=== PATIENT | male | born 1980 | race Caucasian/White ===

== ENCOUNTER 2022-06-09 13:42 | Inpatient (IN) | payer MEDICARE, MEDICAID, SELFPAY ==
--- NOTE | 2022-06-09 13:46 | ED.GENADULT ---
HPI - General Adult General Chief complaint: Psychiatric Symptoms <BILLY Garcia - Last Filed: 06/09/22 16:57> Stated complaint: GENERAL WEAKNESS <BILLY Garcia - Last Filed: 06/09/22 16:57> Time Seen by Provider: 06/09/22 13:45 <BILLY Garcia - Last Filed: 06/09/22 16:57> Source: patient and EMS <BILLY Garcia - Last Filed: 06/09/22 16:57> Mode of arrival: EMS <BILLY Garcia - Last Filed: 06/09/22 16:57> Limitations: no limitations <BILLY Garcia - Last Filed: 06/09/22 16:57> History of Present Illness HPI narrative: Patient is a 42 year old assigned male at with a history of depression presenting to the emergency department today with vague suicidal ideation. Patient states that his counselor recommended he come in because he made vague comments about being suicidal. Patient states that he does not have a plan at this time. Patient denies any dizziness, lightheadedness, abdominal pain, nausea, vomiting, fever, chills, blurry vision, double vision, loss of vision, chest pain, difficulty breathing, shortness of breath, back pain, night sweats, pain with urination, increased urinary frequency, increased urinary urgency, blood in his urine or stool, syncope or a near syncopal episode, recent trauma or falls, bowel incontinence, bladder incontinence, bowel retention, bladder retention, or any other complaints at this time. <BILLY Gacria - Last Filed: 06/09/22 16:57> Onset (ago): day(s) <BILLY Garcia - Last Filed: 06/09/22 16:57> Severity: mild <BILLY Garcia - Last Filed: 06/09/22 16:57> Relieving factors: none <BILLY Garcia - Last Filed: 06/09/22 16:57> Exacerbating factors: none <BILLY Garcia Last Filed: 06/09/22 16:57> Associated symptoms: denies other symptoms <BILLY Garcia Last Filed: 06/09/22 16:57> Treatments prior to arrival: none <BILLY Garcia Last Filed: 06/09/22 16:57> Related Data Home medications: Home Medications Medication Instructions Recorded Confirmed aripiprazole 5 mg tablet 1 tab PO BEDTIME 06/09/22 06/09/22 bupropion HCl 150 mg 24 hr tablet, 1 tab PO QAM 06/09/22 06/09/22 extended release methadone 10 mg/mL oral syringe 121 mg PO DAILY 06/09/22 06/09/22 (FOR ORAL USE ONLY) <BILLY Garcia Last Filed: 06/09/22 16:57> Allergies/adverse reactions: Allergies Allergy/AdvReac Type Severity Reaction Status Date / Time No Known Allergies Allergy Verified 06/09/22 13:54 <BILLY Garcia Last Filed: 06/09/22 16:57> Review of Systems Constitutional: Constitutional: Reports no additional constitutional complaints, Denies chills, Denies fever(s) and Denies night sweats <BILLY Garcia Last Filed: 06/09/22 16:57> Eyes: Eyes: Reports no additional eye complaints, Denies blurry vision, Denies change in vision, Denies diplopia, Denies eye discharge, Denies loss of vision and Denies eye pain <BILLY Garcia Last Filed: 06/09/22 16:57> ENT: Denies dizziness <BILLY Garcia Last Filed: 06/09/22 16:57> Cardiovascular: Cardiovascular: Reports no additional cardiovascular complaints, Denies chest pain, Denies lightheadedness, Denies Loss of Consciousness and Denies dyspnea <BILLY Garcia Last Filed: 06/09/22 16:57> Respiratory: Respiratory: Reports no additional respiratory complaints and Denies dyspnea <BILLY Garcia Last Filed: 06/09/22 16:57> Gastrointestinal: Gastrointestinal: Reports no additional gastrointestinal complaints, Denies abdominal pain, Denies melena, Denies hematochezia, Denies change in bowel habits and Denies change in stool character <BILLY Garcia Last Filed: 06/09/22 16:57> Genitourinary: Genitourinary: Reports no additional male genitourinary complaints, Denies hematuria, Denies oliguria, Denies difficulty urinating, Denies dysuria, Denies urinary frequency, Denies urinary hesitancy, Denies urinary incontinence and Denies urinary urgency <BILLY Garcia - Last Filed: 06/09/22 16:57> Musculoskeletal: Musculoskeletal: Reports no additional musculoskeletal complaints, Denies numbness and Denies tingling <BILLY Garcia - Last Filed: 06/09/22 16:57> Neurologic: Denies dizziness, Denies loss of vision, Denies numbness and Denies tingling <BILLY Garcia - Last Filed: 06/09/22 16:57> Psychiatric: Psychiatric: Reports no additional psychiatric complaints, Reports depression and Reports suicidal ideation <BILLY Garcia - Last Filed: 06/09/22 16:57> Endocrine: Endocrine: Reports no additional endocrine complaints <BILLY Garcia - Last Filed: 06/09/22 16:57> Hematologic/Lymphatic: Hematologic/Lymphatic: Reports no additional hematologic/lymphatic complaints <BILLY Garcia - Last Filed: 06/09/22 16:57> Allergic/Immunologic: Allergic/Immunologic: Reports no additional allergic/immunologic complaints <BILLY Garcia - Last Filed: 06/09/22 16:57> PMF Past Medical History Attestation statement: The following information was validated with the patient. <BILLY Garcia - Last Filed: 06/09/22 16:57> Source: old records reviewed <BILLY Garcia - Last Filed: 06/09/22 16:57> Social History Social History: Social History Alcohol intake: unknown Smoked in Last 30 Days: No Use of substances other than those prescribed or required for medical reasons: Unknown Advance Directives: No Advance Directives Information Provided: No Guardian: No <BILLY Garcia - Last Filed: 06/09/22 16:57> Physical Exam ED Vital Signs: Vital Signs - 24 hr 06/09/22 13:49 06/09/22 15:56 06/10/22 05:11 Temperature 98.2 F 98.5 F Pulse Rate 64 63 Respiratory Rate 16 16 17 Blood Pressure 125/81 122/64 Pulse Oximetry 94 Oxygen Delivery Method Room Air BMI result Body Mass Index 24.0 <BILLY Garcia - Last Filed: 06/09/22 16:57> Vital Signs - 24 hr 06/09/22 13:49 06/09/22 15:56 06/10/22 05:11 Temperature 98.2 F 98.5 F Pulse Rate 64 63 Respiratory Rate 16 16 17 Blood Pressure 125/81 122/64 Pulse Oximetry 94 Oxygen Delivery Method Room Air BMI result Body Mass Index 24.0 <Samuel Cheema MD - Last Filed: 06/10/22 07:02> Const General: cooperative, no acute distress, alert and awake <BILLY Garcia - Last Filed: 06/09/22 16:57> Nutritional Appearance: well nourished <BILLY Garcia - Last Filed: 06/09/22 16:57> Orientation/consciousness: patient oriented x3 <BILLY Garcia - Last Filed: 06/09/22 16:57> Limitations: no limitations <BILLY Garcia - Last Filed: 06/09/22 16:57> HENMT Head: Yes normal to inspection and Yes atraumatic <BILLY Garcia - Last Filed: 06/09/22 16:57> Ears: hearing grossly normal bilaterally and external ears normal <BILLY Garcia - Last Filed: 06/09/22 16:57> General nose exam: Normal external nose present, no nasal discharge noted and no epistaxis <BILLY Garcia - Last Filed: 06/09/22 16:57> Face and sinus: Yes normal facial exam, No abrasion and No laceration <BILLY Garcia - Last Filed: 06/09/22 16:57> Mouth: Normal oral and palatal mucosa present, no drooling and no muffled voice <BILLY Garcia - Last Filed: 06/09/22 16:57> Eyes General: appearance normal, both eyes and all related structures <BILLY Garcia - Last Filed: 06/09/22 16:57> Periorbital: periorbital findings normal <BILLY Garcia - Last Filed: 06/09/22 16:57> Eyelids: Yes eyelids normal <BILLY Garcia - Last Filed: 06/09/22 16:57> Conjunctivae: conjunctivae normal <Tara Jeffers PA - Last Filed: 06/09/22 16:57> Pupils: Equal, round and reactive pupils present <Tara Jeffers PA - Last Filed: 06/09/22 16:57> EOM: EOMs intact bilaterally <Tara Jeffers PA - Last Filed: 06/09/22 16:57> Neck Neck: Yes normal visual inspection, Yes full ROM and Yes no lymphadenopathy <Tara Jeffers PA - Last Filed: 06/09/22 16:57> Chest Chest palpation & inspection: normal inspection of the chest <Tara Jeffers PA - Last Filed: 06/09/22 16:57> Resp Effort & Inspection: normal respiratory effort and able to speak in complete sentences <Tara Jeffers PA - Last Filed: 06/09/22 16:57> Auscultation: clear to auscultation bilaterally <Tara Jeffers [place] - Last Filed: 06/09/22 16:57> Cardio Rate: regular rate <Tara Jeffers PA - Last Filed: 06/09/22 16:57> Rhythm: regular rhythm <Tara Jeffers [place] - Last Filed: 06/09/22 16:57> GI Inspection: Yes normal to inspection <Tara Jeffers PA - Last Filed: 06/09/22 16:57> Neuro General: patient oriented x3 and moves all extremities <Tara Jeffers [place] - Last Filed: 06/09/22 16:57> Cranial nerves: Yes Equal, round and reactive pupils present <Tara Jeffers PA - Last Filed: 06/09/22 16:57> Cognition (Neuro): normal cognition <Tara Jeffers PA - Last Filed: 06/09/22 16:57> Motor exam (neuro): 5/5 motor strength present throughout <Tara Jeffers PA - Last Filed: 06/09/22 16:57> Sensory Exam: Normal double simultaneous stimulation for sensation <Tara Jeffers PA - Last Filed: 06/09/22 16:57> Coordination: [id number] test normal <Tara Jeffers PA - Last Filed: 06/09/22 16:57> Extrem General: Yes normal to inspection, Yes full ROM and Yes capillary refill normal <BILLY Garcia - Last Filed: 06/09/22 16:57> Psych Appearance: grossly normal <BILLY Garcia - Last Filed: 06/09/22 16:57> Mental Status: mental status grossly normal <BILLY Garcia - Last Filed: 06/09/22 16:57> Affect: Indifferent affect present <BILLY Garcia - Last Filed: 06/09/22 16:57> Attitude: Avoids eye contact (attititude/behavior) <BILLY Garcia - Last Filed: 06/09/22 16:57> Thought process: Normal thought process present <BILLY Garcia - Last Filed: 06/09/22 16:57> Thought content: Suicidality present <BILLY Garcia - Last Filed: 06/09/22 16:57> Insight: Limited insight present (Psych) <BILLY Garcia - Last Filed: 06/09/22 16:57> Judgement: Limited judgement present (Psych) <BILLY Garcia - Last Filed: 06/09/22 16:57> Course Reevaluation(s) Reevaluation #1: No events reported by the nurse overnight, vital signs stable, bed search is underway patient is willing to be admitted voluntary, continue with physician observation status. <Samuel Cheema MD - Last Filed: 06/10/22 07:02> Time: 07:01 <Samuel Cheema MD - Last Filed: 06/10/22 07:02> Medications Administered Generic Name Dose Route Start Last Admin Trade Name Freq PRN Reason Stop Dose Admin Aripiprazole 5 mg 06/09/22 21:00 06/09/22 20:13 Aripiprazole 5 Mg Tablet PO 5 mg BEDTIME XIAO Administration Bupropion HCl 150 mg 06/09/22 14:45 06/09/22 14:49 Bupropion Hcl Xl 150 Mg Tab.Er.24h PO Not Given DAILY XIAO <BILLY Garcia - Last Filed: 06/09/22 16:57> Medications Administered Generic Name Dose Route Start Last Admin Trade Name Freq PRN Reason Stop Dose Admin Aripiprazole 5 mg 06/09/22 21:00 06/09/22 20:13 Aripiprazole 5 Mg Tablet PO 5 mg BEDTIME XIAO Administration Bupropion HCl 150 mg 06/09/22 14:45 06/09/22 14:49 Bupropion Hcl Xl 150 Mg Tab.Er.24h PO Not Given DAILY XIAO <Samuel Cheema MD - Last Filed: 06/10/22 07:02> Medical Decision Making MDM Narrative Medical decision making narrative: Patient is a 42 year old assigned male at with a history of depression presenting to the emergency department today with vague suicidal ideation. Patient's physical exam showed an indifferent individual with vague suicidal ideation. Patient's blood work was unremarkable. I explained my physical exam findings as well as all test results to the patient. I answered all questions asked by the patient. Patient is currently awaiting [facility] evaluation. Patient is not on a section 12 and may leave if he so chooses. <BILLY Garcia - Last Filed: 06/09/22 16:57> Medical Records Medical records reviewed: Yes I reviewed the patient's medical records. <BILLY Garcia - Last Filed: 06/09/22 16:57> Lab Data Lab results reviewed: Yes I reviewed the patient's lab results. <BILLY Garcia - Last Filed: 06/09/22 16:57> Result diagrams: : 06/09/22 14:37 06/09/22 14:37 <BILLY Garcia - Last Filed: 06/09/22 16:57> Labs: Lab Results 06/09/22 06/09/22 06/09/22 Range/Units 14:29 14:29 14:37 WBC 7.7 (4.8-10.8) X10*3/uL RBC 4.68 (4.60-5.80) X10*6/uL Hgb 14.2 (14.0-18.0) g/dl Hct 41.7 L (42.0-52.0) % MCV 89.1 (80.0-98.0) fL MCH 30.3 (27.0-33.0) pg MCHC 34.1 (31.0-36.0) g/dl RDW 12.5 (11.0-16.0) % Plt Count 243 (160-400) X10*3/uL MPV 9.4 (9.4-12.4) fL Immature Gran % (Auto) 0.4 (0.0-0.4) % Neut % (Auto) 51.4 (45-73) % Lymph % (Auto) 35.3 (20-40) % [place] % (Auto) 6.9 (2-11) % Eos % (Auto) 5.5 H (0-4) % Baso % (Auto) 0.5 (0-2) % Lymph # (Auto) 2.7 (1.2-4.9) X10*3/uL [place] # (Auto) 0.5 (0.1-1.2) X10*3/uL Eos # (Auto) 0.4 (0.0-0.4) X10*3/uL Baso # (Auto) 0.0 (0.0-0.2) X10*3/uL Abs Immat Gran (auto) 0.03 (0.00-0.03) X10*3/uL Absolute Neuts (auto) 4.0 (2.0-8.3) x10*3/uL Absolute Nucleated RBC 0.000 (0.0-0.012) X10*3/uL Nucleated RBC % (auto) 0.0 (0.0-0.2) /100WBC Sodium (135-145) mmol/L Potassium (3.3-5.1) mmol/L Chloride (96-108) mmol/L Carbon Dioxide (22-29) mmol/L Anion Gap (12-20) BUN (9-16) mg/dL Creatinine (0.5-1.4) mg/dL Estim Creat Clear Calc Estimated GFR Random Glucose (60-115) mg/dL Calcium (8.4-10.2) mg/dL Total Bilirubin (0.0-1.0) mg/dL AST (5-37) U/L ALT (0-40) U/L Alkaline Phosphatase (39-117) U/L Total Protein (6.5-8.0) g/dL Albumin (3.5-5.0) g/dL Salicylates (15-30) mg/dL Urine Opiates Screen Not Detected (Not Detect) Urine Fentanyl Screen POSITIVE H (Not Detect) Acetaminophen (<30) mcg/mL Ur Barbiturates Screen Not Detected (Not Detect) Ur Phencyclidine Scrn Not Detected (Not Detect) Ur Amphetamines Screen Not Detected (Not Detect) U Benzodiazepines Scrn Not Detected (Not Detect) Urine Cocaine Screen Not Detected (Not Detect) U Marijuana (THC) Screen POSITIVE H (Not Detect) Ethyl Alcohol mg/dL COVID-19 (TYRONE) Negative (Negative) COVID-19 Clin Com See Note 06/09/22 Range/Units 14:37 WBC (4.8-10.8) X10*3/uL RBC (4.60-5.80) X10*6/uL Hgb (14.0-18.0) g/dl Hct (42.0-52.0) % MCV (80.0-98.0) fL MCH (27.0-33.0) pg MCHC (31.0-36.0) g/dl RDW (11.0-16.0) % Plt Count (160-400) X10*3/uL MPV (9.4-12.4) fL Immature Gran % (Auto) (0.0-0.4) % Neut % (Auto) (45-73) % Lymph % (Auto) (20-40) % [place] % (Auto) (2-11) % Eos % (Auto) (0-4) % Baso % (Auto) (0-2) % Lymph # (Auto) (1.2-4.9) X10*3/uL [place] # (Auto) (0.1-1.2) X10*3/uL Eos # (Auto) (0.0-0.4) X10*3/uL Baso # (Auto) (0.0-0.2) X10*3/uL Abs Immat Gran (auto) (0.00-0.03) X10*3/uL Absolute Neuts (auto) (2.0-8.3) x10*3/uL Absolute Nucleated RBC (0.0-0.012) X10*3/uL Nucleated RBC % (auto) (0.0-0.2) /100WBC Sodium 142 (135-145) mmol/L Potassium 4.3 (3.3-5.1) mmol/L Chloride 102 (96-108) mmol/L Carbon Dioxide 31 H (22-29) mmol/L Anion Gap 13 (12-20) BUN 10 (9-16) mg/dL Creatinine 0.84 (0.5-1.4) mg/dL Estim Creat Clear Calc 123.2 Estimated GFR > 60 Random Glucose 81 (60-115) mg/dL Calcium 10.1 (8.4-10.2) mg/dL Total Bilirubin 0.2 (0.0-1.0) mg/dL AST 29 (5-37) U/L ALT 34 (0-40) U/L Alkaline Phosphatase 74 (39-117) U/L Total Protein 7.0 (6.5-8.0) g/dL Albumin 4.4 (3.5-5.0) g/dL Salicylates < 5.0 L (15-30) mg/dL Urine Opiates Screen (Not Detect) Urine Fentanyl Screen (Not Detect) Acetaminophen < 1 (<30) mcg/mL Ur Barbiturates Screen (Not Detect) Ur Phencyclidine Scrn (Not Detect) Ur Amphetamines Screen (Not Detect) U Benzodiazepines Scrn (Not Detect) Urine Cocaine Screen (Not Detect) U Marijuana (THC) Screen (Not Detect) Ethyl Alcohol < 10 mg/dL COVID-19 (TYRONE) (Negative) COVID-19 Clin Com <BILLY Garcia - Last Filed: 06/09/22 16:57> Lab Results 06/09/22 06/09/22 06/09/22 Range/Units 14:29 14:29 14:37 WBC 7.7 (4.8-10.8) X10*3/uL RBC 4.68 (4.60-5.80) X10*6/uL Hgb 14.2 (14.0-18.0) g/dl Hct 41.7 L (42.0-52.0) % MCV 89.1 (80.0-98.0) fL MCH 30.3 (27.0-33.0) pg MCHC 34.1 (31.0-36.0) g/dl RDW 12.5 (11.0-16.0) % Plt Count 243 (160-400) X10*3/uL MPV 9.4 (9.4-12.4) fL Immature Gran % (Auto) 0.4 (0.0-0.4) % Neut % (Auto) 51.4 (45-73) % Lymph % (Auto) 35.3 (20-40) % [place] % (Auto) 6.9 (2-11) % Eos % (Auto) 5.5 H (0-4) % Baso % (Auto) 0.5 (0-2) % Lymph # (Auto) 2.7 (1.2-4.9) X10*3/uL [place] # (Auto) 0.5 (0.1-1.2) X10*3/uL Eos # (Auto) 0.4 (0.0-0.4) X10*3/uL Baso # (Auto) 0.0 (0.0-0.2) X10*3/uL Abs Immat Gran (auto) 0.03 (0.00-0.03) X10*3/uL Absolute Neuts (auto) 4.0 (2.0-8.3) x10*3/uL Absolute Nucleated RBC 0.000 (0.0-0.012) X10*3/uL Nucleated RBC % (auto) 0.0 (0.0-0.2) /100WBC Sodium (135-145) mmol/L Potassium (3.3-5.1) mmol/L Chloride (96-108) mmol/L Carbon Dioxide (22-29) mmol/L Anion Gap (12-20) BUN (9-16) mg/dL Creatinine (0.5-1.4) mg/dL Estim Creat Clear Calc Estimated GFR Random Glucose (60-115) mg/dL Calcium (8.4-10.2) mg/dL Total Bilirubin (0.0-1.0) mg/dL AST (5-37) U/L ALT (0-40) U/L Alkaline Phosphatase (39-117) U/L Total Protein (6.5-8.0) g/dL Albumin (3.5-5.0) g/dL Salicylates (15-30) mg/dL Urine Opiates Screen Not Detected (Not Detect) Urine Fentanyl Screen POSITIVE H (Not Detect) Acetaminophen (<30) mcg/mL Ur Barbiturates Screen Not Detected (Not Detect) Ur Phencyclidine Scrn Not Detected (Not Detect) Ur Amphetamines Screen Not Detected (Not Detect) U Benzodiazepines Scrn Not Detected (Not Detect) Urine Cocaine Screen Not Detected (Not Detect) U Marijuana (THC) Screen POSITIVE H (Not Detect) Ethyl Alcohol mg/dL COVID-19 (TYRONE) Negative (Negative) COVID-19 Clin Com See Note 06/09/22 Range/Units 14:37 WBC (4.8-10.8) X10*3/uL RBC (4.60-5.80) X10*6/uL Hgb (14.0-18.0) g/dl Hct (42.0-52.0) % MCV (80.0-98.0) fL MCH (27.0-33.0) pg MCHC (31.0-36.0) g/dl RDW (11.0-16.0) % Plt Count (160-400) X10*3/uL MPV (9.4-12.4) fL Immature Gran % (Auto) (0.0-0.4) % Neut % (Auto) (45-73) % Lymph % (Auto) (20-40) % [place] % (Auto) (2-11) % Eos % (Auto) (0-4) % Baso % (Auto) (0-2) % Lymph # (Auto) (1.2-4.9) X10*3/uL [place] # (Auto) (0.1-1.2) X10*3/uL Eos # (Auto) (0.0-0.4) X10*3/uL Baso # (Auto) (0.0-0.2) X10*3/uL Abs Immat Gran (auto) (0.00-0.03) X10*3/uL Absolute Neuts (auto) (2.0-8.3) x10*3/uL Absolute Nucleated RBC (0.0-0.012) X10*3/uL Nucleated RBC % (auto) (0.0-0.2) /100WBC Sodium 142 (135-145) mmol/L Potassium 4.3 (3.3-5.1) mmol/L Chloride 102 (96-108) mmol/L Carbon Dioxide 31 H (22-29) mmol/L Anion Gap 13 (12-20) BUN 10 (9-16) mg/dL Creatinine 0.84 (0.5-1.4) mg/dL Estim Creat Clear Calc 123.2 Estimated GFR > 60 Random Glucose 81 (60-115) mg/dL Calcium 10.1 (8.4-10.2) mg/dL Total Bilirubin 0.2 (0.0-1.0) mg/dL AST 29 (5-37) U/L ALT 34 (0-40) U/L Alkaline Phosphatase 74 (39-117) U/L Total Protein 7.0 (6.5-8.0) g/dL Albumin 4.4 (3.5-5.0) g/dL Salicylates < 5.0 L (15-30) mg/dL Urine Opiates Screen (Not Detect) Urine Fentanyl Screen (Not Detect) Acetaminophen < 1 (<30) mcg/mL Ur Barbiturates Screen (Not Detect) Ur Phencyclidine Scrn (Not Detect) Ur Amphetamines Screen (Not Detect) U Benzodiazepines Scrn (Not Detect) Urine Cocaine Screen (Not Detect) U Marijuana (THC) Screen (Not Detect) Ethyl Alcohol < 10 mg/dL COVID-19 ([facility]YRONE) (Negative) COVID-19 Clin Com <Samuel Cheema MD - Last Filed: 06/10/22 07:02> Discharge Plan Discharge Clinical Impression: Depression <BILLY Garcia - Last Filed: 06/09/22 16:57> Patient Disposition: Still a Patient <BILLY Garcia - Last Filed: 06/09/22 16:57> Instructions: Depression (ED) <BILLY Garcia - Last Filed: 06/09/22 16:57> Additional Instructions: Follow up with your primary care provider. Return to the emergency department immediately if your symptoms worsen or if you develop any dizziness, shortness of breath, difficulty breathing, chest pain, blurry vision, loss of vision, nausea, vomiting, abdominal pain, fever, chills, back pain, or any other complaints. <BILLY Garcia - Last Filed: 06/09/22 16:57> Prescriptions: No Action aripiprazole 5 mg tablet 1 tab PO BEDTIME bupropion HCl 150 mg tablet extended release 24 hr 1 tab PO QAM methadone 10 mg/mL Syringe 121 mg PO DAILY <BILLY Garcia - Last Filed: 06/09/22 16:57> Referrals: Josr Maurice MD [Primary Care Provider] - <BILLY Garcia - Last Filed: 06/09/22 16:57> Interventions: [place]-Suicide Risk Severity Scale Last Done: 06/09/22 14:00 <BILLY Garcia - Last Filed: 06/09/22 16:57> Print Language: French <BILLY Garcia - Last Filed: 06/09/22 16:57>
[2022-06-09 13:49] VITALS: BP 125/81; PULSE 64; RESP 16; TEMP 36.8; BMI 24.0
[2022-06-09 13:54] VITALS: BP 120/80; PULSE 74; O2SAT 96
--- NOTE | 2022-06-09 14:32 | PC.NURSE ---
Addendum entered by Ann-Marie Tate 06/09/22 16:09: Methadone dose Verified by Cassi PORRAS. Dose 121mg PO last dose 06/09/2022, at 5:53am. Original Note: Contact made to [facility] at [phone] to verify methadone. Per kindra, metal moulder's assistant at clinic, director will call back. Clinic opens at 1600.
[2022-06-09 14:43] LABS: MANUAL DIFF FLAG NO
[2022-06-09 14:46] LABS: Amphetamine Screen Urine Not Detected (Not Detect); Barbiturates, Urine Not Detected (Not Detect); Benzodiazepines Screen Urine Not Detected (Not Detect); Cannabinoid Screen Urine POSITIVE (Not Detect); Cocaine Screen Urine Not Detected (Not Detect); Fentanyl, urine POSITIVE (Not Detect); Opiate Screen Urine Not Detected (Not Detect); Phencyclidine Screen Urine Not Detected (Not Detect)
[2022-06-09 14:46] LABS: Basophils Percent Auto 0.5 % (0-2); Eosinophils Absolute Auto 0.4 X10*3/uL (0.0-0.4); Eosinophils Percent Auto 5.5 % (0-4); Hematocrit 41.7 % (42.0-52.0); Hemoglobin 14.2 g/dl (14.0-18.0); Imm Gran Abs Auto 0.03 X10*3/uL (0.00-0.03); Imm Gran Pct Auto 0.4 % (0.0-0.4); Lymphocytes Absolute Auto 2.7 X10*3/uL (1.2-4.9); Lymphocytes Percent Auto 35.3 % (20-40); Mean Corpuscular HGB Conc 34.1 g/dl (31.0-36.0); Mean Corpuscular Hemoglobin 30.3 pg (27.0-33.0); Mean Corpuscular Volume 89.1 fL (80.0-98.0); Mean Platelet Volume 9.4 fL (9.4-12.4); Monocytes Absolute Auto 0.5 X10*3/uL (0.1-1.2); Monocytes Percent Auto 6.9 % (2-11); Neutrophils Percent Auto 51.4 % (45-73); Platelet Count 243 X10*3/uL (160-400); Red Blood Count 4.68 X10*6/uL (4.60-5.80); Red Cell Distribution Width 12.5 % (11.0-16.0); White Blood Count 7.7 X10*3/uL (4.8-10.8)
[2022-06-09 14:52] LABS: COVID-19 Test Negative (Negative); IDNOW Serial# BCCEAD1C
[2022-06-09 15:08] LABS: Acetaminophen LAB < 1 mcg/mL (<30); Alanine Aminotransferase 34 U/L (0-40); Albumin Level 4.4 g/dL (3.5-5.0); Alkaline Phosphatase 74 U/L (39-117); Anion Gap 13 (12-20); Aspartate Amino Transferase 29 U/L (5-37); Bilirubin Total 0.2 mg/dL (0.0-1.0); Blood Urea Nitrogen 10 mg/dL (9-16); Calcium 10.1 mg/dL (8.4-10.2); Carbon Dioxide 31 mmol/L (22-29); Chloride 102 mmol/L (96-108); Creatinine Clr Calc Pharmacy 123.2; Estimated Glomerular Filt Rate > 60; Ethanol < 10 mg/dL; Glucose Random 81 mg/dL (60-115); Potassium 4.3 mmol/L (3.3-5.1); Salicylate < 5.0 mg/dL (15-30); Sodium 142 mmol/L (135-145)
[2022-06-09 15:56] VITALS: RESP 16
--- NOTE | 2022-06-09 16:00 | PC.NURSE ---
Per pt: okay to discuss care with brother Tremayne [phone]
--- NOTE | 2022-06-09 18:00 | PC.NURSE ---
contact made to [facility] regarding Smartsheet sent at [id number]. Contact made to [facility]. Per Beau: no clinician will be available within next 60 minutes.
--- NOTE | 2022-06-09 18:10 | HE.PHANOTE ---
RE METHADONE FORM RECEIVED FOR 121 MG FROM [facility] IN [facility]
--- NOTE | 2022-06-09 18:33 | MHC.CARE ---
[facility] unable to send a clinician, CARE team will complete assessment
--- NOTE | 2022-06-09 19:19 | PC.NURSE ---
Addendum entered by Erica Penn RN 06/10/22 06:48: report given to SANIA Yancey Original Note: report received from SANIA Jacobsen pt alert and oriented, resting comfortably no signs of acute distress notice breathing equally unlabored close monitoring maintained
[2022-06-09] MEDS: ARIPiprazole 5 MG TABLET PO (20:13)
[2022-06-10 05:11] VITALS: BP 122/64; PULSE 63; RESP 17; TEMP 36.9; O2SAT 94
--- NOTE | 2022-06-10 07:35 | PC.NURSE ---
patient appears to remain asleep at present respirations are even and unlabored patient appears in no distress
[2022-06-10] MEDS: buPROPion HCl XL 150 MG TAB.ER.24H PO (08:04)
[2022-06-10] MEDS: methADONE HCl 20 MG/2 ML ORAL.CONC 120 MG PO (08:04)
--- NOTE | 2022-06-10 09:03 | PC.NURSE ---
nursing staff called from [facility] to verify dose, (Christina) t/w stated dose we gave and loose circumstances bedsearch under which client was remaining in ED. patient at rest in rear communal area.
[2022-06-10 16:04] VITALS: BP 113/77; PULSE 82; RESP 18; TEMP 36.7; O2SAT 97
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
[2022-06-10] MEDS: Nicotine 21 MG PATCH.TD24 TRANSDERMA (18:26)
--- NOTE | 2022-06-10 19:39 | PC.NURSE ---
Verbal order obtained to start nicotine patch tonight by Rosalinda Robert NP.
[2022-06-10] MEDS: traZODone HCL 50 MG TABLET PO (21:12)
[2022-06-10] MEDS: hydrOXYzine HCL 25 MG TABLET PO (21:12)
[2022-06-11 06:00] VITALS: BP 114/76; PULSE 78; RESP 18; TEMP 36.2; O2SAT 96
[2022-06-11] MEDS: methADONE HCl 20 MG/2 ML ORAL.CONC 120 MG PO (08:20)
[2022-06-11] MEDS: Nicotine 21 MG PATCH.TD24 TRANSDERMA (08:21)
[2022-06-11] MEDS: Paliperidone ER 6 MG TAB.ER.24 PO (08:21)
[2022-06-11 09:41] LABS: Estimated Average Glucose 103 mg/dL; Hemoglobin A1c % 5.2 %
[2022-06-11 10:21] LABS: Anion Gap 14 (12-20); Carbon Dioxide 28 mmol/L (22-29); Chloride 102 mmol/L (96-108); Potassium 4.6 mmol/L (3.3-5.1); Sodium 139 mmol/L (135-145); Thyroid Stimulating Hormone 1.22 uIU/mL (0.32-4.0)
[2022-06-11 10:32] LABS: Alanine Aminotransferase 44 U/L (0-40); Albumin Level 4.3 g/dL (3.5-5.0); Alkaline Phosphatase 80 U/L (39-117); Aspartate Amino Transferase 28 U/L (5-37); Bilirubin Total 0.2 mg/dL (0.0-1.0); Blood Urea Nitrogen 17 mg/dL (9-16); Cholesterol 220 mg/dL; Creatinine Clr Calc Pharmacy 106.7; Estimated Glomerular Filt Rate > 60; Glucose Fasting 85 mg/dL (60-99); HDL Cholesterol 49 mg/dL; LDL Cholesterol Calculated 150 mg/dl; Triglycerides 108 mg/dL
--- NOTE | 2022-06-11 16:51 | P.PNPSI_ITS ---
Subjective Subjective Date of Service: 06/11/22 Reason For Visit: SI Interim History: pt calm, cooperative. amenable to interview. appears superficially well. denies SI/HI/AVH. verifies his h/o LANG and desire to get back on LANG. no complaints or requests, declines and med changes presently. per staff, thoughts of and suicide. denies SI now. some delayed responses. vague responses. mother a year ago and pt decompensated after. tox cannabis and fentanyl POS. appeared to have slept well. Mental Status Exam Mental Status Exam Narrative: A&O. In street clothes, okay hygiene, normal body habitus. Intermittent eye contact, attentive. No Tics or Tremors. No abnormal involuntary movements. Calm, cooperative, engaged. Non-pressured speech, spontaneous with regular rate and rhythm, normal volume and prosody. No prolonged speech latency or dysarthria. Mood is ?tolerable,? affect is congruent, normo-intense, non-labile. Denies SI/SIB/HI/AVH upon inquiry, although his responses to SI and AVH are not really. Thoughts are coherent, organized. No known cognitive or memory impairment. Insight/ Judgment limited but adequate. Diagnostics Vital Signs (24Hr): Vital Signs - 24 hr 06/11/22 06:00 Temperature 97.2 F Pulse Rate 78 Respiratory Rate 18 Blood Pressure 114/76 Pulse Oximetry 96 Oxygen Delivery Method Room Air BMI result Body Mass Index 24.0 Labs Results: 06/09/22 14:37 06/11/22 08:34 Labs: Laboratory Results - last 48 hr 06/11/22 06/11/22 08:34 08:34 Sodium 139 Potassium 4.6 Chloride 102 Carbon Dioxide 28 Anion Gap 14 BUN 17 H Creatinine 0.97 Estim Creat Clear Calc 106.7 Estimated GFR > 60 Fasting Glucose 85 Estimat Average Glucose 103 Hemoglobin A1c % 5.2 Calcium 10.0 Total Bilirubin 0.2 AST 28 ALT 44 H Alkaline Phosphatase 80 Total Protein 7.0 Albumin 4.3 Triglycerides 108 Cholesterol 220 LDL Cholesterol, Calc 150 HDL Cholesterol 49 TSH 1.22 Medications Medications Current Medications Acetaminophen (Acetaminophen 325 Mg Tablet) 650 mg PO Q6H PRN PRN Reason: Headache/Pain Mild Scale (1-3) Al Hydroxide/Mg Hydroxide (Magnesium Hydrox/Alum Hydrox 30 Ml Oral.Susp) 30 ml PO Q6H PRN PRN Reason: Heartburn/Nausea Hydroxyzine HCl (Hydroxyzine Hcl 25 Mg Tablet) 25 mg PO Q6H PRN PRN Reason: Anxiety Last Admin: 06/10/22 21:12 Dose: 25 mg Magnesium Hydroxide (Milk Of Magnesia 30 Ml Oral.Susp) 30 ml PO DAILY PRN PRN Reason: Constipation Methadone HCl (Methadone Hcl 20 Mg/2 Ml Oral.Conc) 120 mg PO DAILY [facility] Last Admin: 06/11/22 08:20 Dose: 120 mg Nicotine (Nicotine 21 Mg Patch.Td24) 21 mg TRANSDERMA DAILY [facility] Last Admin: 06/11/22 08:21 Dose: 21 mg Paliperidone (Paliperidone Er 6 Mg Tab.Er.24) 6 mg PO DAILY [facility] Last Admin: 06/11/22 08:21 Dose: 6 mg Trazodone HCl (Trazodone Hcl 50 Mg Tablet) 50 mg PO BEDTIME PRN PRN Reason: Insomnia Last Admin: 06/10/22 21:12 Dose: 50 mg Allergies Allergies Allergy/AdvReac Type Severity Reaction Status Date / Time No Known Allergies Allergy Verified 06/09/22 13:54 Assessment & Plan Assessment & Plan (1) Schizoaffective disorder, depressive type: Status: Acute Code(s): F25.1 - Schizoaffective disorder, depressive type (2) Opioid use disorder, moderate, dependence: Status: Acute Code(s): F11.20 - Opioid dependence, uncomplicated Plan Harsha is a 42 y.o. male who carries a dx of schizoaffective disorder, dep ressive type, and opioid use disorder. He presented to [facility] on 06/09/22 due to passive suicidal ideation. Per CARE team cyn pt?s functioning has been declining since 02/2022. He had been stable for 5 years on invega trinza, however his mother 05/2021 and then his psychiatrist retired, has been off his LANG sine 08/2021. He was started on low dose abilify in 03/2022 and bupropion XL. Pt has been using 3-5 bags of fentanyl via insufflation 3-5 times a week for over a year. Utox positive for both fentanyl and cannabis. Hx of multiple previous psych admissions, last in 2017. Onset of psychosis since age 17. 06/10: D/C abilify 5 mg, re-start invega at 6 mg. Hx of being on invega trinza 4 10 mg. D/c wellbutrin due to potential exacerbation in psychotic sx. 06/11: continue current mgmt. start invega sustenna LANG perhaps thursday if pt continue to tolerate PO medication. I spent ___25___ minutes with the patient and/or on the patient floor today, greater than?50% of which was spent counseling/coordinating care. Reason for contiued inpatient stay Substantial Risk for: harm to self, inability to function and rapid decompensation
[2022-06-12 07:00] VITALS: BMI 23.8
--- NOTE | 2022-06-12 07:46 | HO.PSYCHPN ---
Subjective Subjective Date of Service: 06/12/22 Reason For Visit: SI Subjective Notes: Conditional Voluntary Interim History: Pt pacing, scanning room. He denies any concerns including suicidal or homicidal ideation. He denies VH/AH. He reports he is trying to come off methadone- advised to follow up tomorrow with primary team. Per nursing, no behavioral concerns. Medication Compliance: Yes Side effects from medications: No Attending Groups: No Review of Systems Constitutional: Reports no additional constitutional complaints, Denies chills, Denies fever(s) and Denies night sweats Eyes: Reports no additional eye complaints, Denies blurry vision, Denies change in vision, Denies diplopia, Denies eye discharge, Denies loss of vision and Denies eye pain Denies dizziness Cardiovascular: Reports no additional cardiovascular complaints, Denies chest pain, Denies lightheadedness, Denies Loss of Consciousness and Denies dyspnea Respiratory: Reports no additional respiratory complaints and Denies dyspnea Gastrointestinal: Reports no additional gastrointestinal complaints, Denies abdominal pain, Denies melena, Denies hematochezia, Denies change in bowel habits and Denies change in stool character Genitourinary: Reports no additional male genitourinary complaints, Denies hematuria, Denies oliguria, Denies difficulty urinating, Denies dysuria, Denies urinary frequency, Denies urinary hesitancy, Denies urinary incontinence and Denies urinary urgency Musculoskeletal: Reports no additional musculoskeletal complaints, Denies numbness and Denies tingling Denies dizziness, Denies loss of vision, Denies numbness and Denies tingling Psychiatric: Reports no additional psychiatric complaints, Reports depression and Reports suicidal ideation Endocrine: Reports no additional endocrine complaints Hematologic/Lymphatic: Reports no additional hematologic/lymphatic complaints Allergic/Immunologic: Reports no additional allergic/immunologic complaints Mental Status Exam Mental Status Exam Narrative: A&O. In street clothes, okay hygiene, normal body habitus. Intermittent eye contact, attentive. No Tics or Tremors. No abnormal involuntary movements. Calm, cooperative, engaged. Non-pressured speech, spontaneous with regular rate and rhythm, normal volume and prosody. No prolonged speech latency or dysarthria. Mood is ?tolerable,? affect is congruent, normo-intense, non-labile. Denies SI/SIB/HI/AVH upon inquiry, although his responses to SI and AVH are not really. Thoughts are coherent, organized. No known cognitive or memory impairment. Insight/ Judgment limited but adequate. Diagnostics Vital Signs (24Hr): Vital Signs - 24 hr 06/12/22 08:20 06/12/22 20:09 Temperature 98.2 F 97 F Pulse Rate 106 H 91 Respiratory Rate 20 16 Blood Pressure 127/73 135/62 Pulse Oximetry 96 94 Oxygen Delivery Method Room Air Room Air BMI result Body Mass Index 23.8 Labs Results: 06/09/22 14:37 06/11/22 08:34 Labs: Laboratory Results - last 48 hr 06/11/22 06/11/22 08:34 08:34 Sodium 139 Potassium 4.6 Chloride 102 Carbon Dioxide 28 Anion Gap 14 BUN 17 H Creatinine 0.97 Estim Creat Clear Calc 106.7 Estimated GFR > 60 Fasting Glucose 85 Estimat Average Glucose 103 Hemoglobin A1c % 5.2 Calcium 10.0 Total Bilirubin 0.2 AST 28 ALT 44 H Alkaline Phosphatase 80 Total Protein 7.0 Albumin 4.3 Triglycerides 108 Cholesterol 220 LDL Cholesterol, Calc 150 HDL Cholesterol 49 TSH 1.22 Medications Medications Current Medications Acetaminophen (Acetaminophen 325 Mg Tablet) 650 mg PO Q6H PRN PRN Reason: Headache/Pain Mild Scale (1-3) Al Hydroxide/Mg Hydroxide (Magnesium Hydrox/Alum Hydrox 30 Ml Oral.Susp) 30 ml PO Q6H PRN PRN Reason: Heartburn/Nausea Hydroxyzine HCl (Hydroxyzine Hcl 25 Mg Tablet) 25 mg PO Q6H PRN PRN Reason: Anxiety Last Admin: 06/10/22 21:12 Dose: 25 mg Magnesium Hydroxide (Milk Of Magnesia 30 Ml Oral.Susp) 30 ml PO DAILY PRN PRN Reason: Constipation Methadone HCl (Methadone Hcl 20 Mg/2 Ml Oral.Conc) 120 mg PO DAILY [facility] Last Admin: 06/12/22 08:31 Dose: 120 mg Nicotine (Nicotine 21 Mg Patch.Td24) 21 mg TRANSDERMA DAILY [facility] Last Admin: 06/12/22 08:29 Dose: 21 mg Paliperidone (Paliperidone Er 6 Mg Tab.Er.24) 6 mg PO DAILY [facility] Last Admin: 06/12/22 08:28 Dose: 6 mg Trazodone HCl (Trazodone Hcl 50 Mg Tablet) 50 mg PO BEDTIME PRN PRN Reason: Insomnia Last Admin: 06/10/22 21:12 Dose: 50 mg Allergies Allergies Allergy/AdvReac Type Severity Reaction Status Date / Time No Known Allergies Allergy Verified 06/09/22 13:54 Assessment & Plan Assessment & Plan (1) Schizoaffective disorder, depressive type: Status: Acute Code(s): F25.1 - Schizoaffective disorder, depressive type (2) Opioid use disorder, moderate, dependence: Status: Acute Code(s): F11.20 - Opioid dependence, uncomplicated Plan Harsha is a 42 y.o. male who carries a dx of schizoaffective disorder, depressive type, and opioid use disorder. He presented to [facility] on 06/09/22 due to passive suicidal ideation. Per CARE team cyn, pt?s functioning has been declining since 02/2022. He had been stable for 5 years on invega trinza, however his mother 05/2021 and then his psychiatrist retired, has been off his LANG sine 08/2021. He was started on low dose abilify in 03/2022 and bupropion XL. Pt has been using 3-5 bags of fentanyl via insufflation 3-5 times a week for over a year. Utox positive for both fentanyl and cannabis. Hx of multiple previous psych admissions, last in 2017. Onset of psychosis since age 17. 06/10: D/C abilify 5 mg, re-start invega at 6 mg. Hx of being on invega trinza 410 mg. D/c wellbutrin due to potential exacerbation in psychotic sx. 06/11: continue current mgmt. start invega sustenna LANG perhaps thursday if pt continue to tolerate PO medication. 06/12 continue tx. I spent minutes with the patient and/or on the patient floor today, greater than?50% of which was spent counseling/coordinating care. Reason for contiued inpatient stay Substantial Risk for: inability to function
[2022-06-12 08:20] VITALS: BP 127/73; PULSE 106; RESP 20; TEMP 36.8; O2SAT 96
[2022-06-12] MEDS: Paliperidone ER 6 MG TAB.ER.24 PO (08:28)
[2022-06-12] MEDS: Nicotine 21 MG PATCH.TD24 TRANSDERMA (08:29)
[2022-06-12] MEDS: methADONE HCl 20 MG/2 ML ORAL.CONC 120 MG PO (08:31)
[2022-06-12 20:09] VITALS: BP 135/62; PULSE 91; RESP 16; TEMP 36.1; O2SAT 94
[2022-06-13 06:00] VITALS: BP 126/72; PULSE 90; RESP 18; TEMP 36.6; O2SAT 95
[2022-06-13] MEDS: methADONE HCl 20 MG/2 ML ORAL.CONC 120 MG PO (08:01)
[2022-06-13] MEDS: Nicotine 21 MG PATCH.TD24 TRANSDERMA (08:01)
[2022-06-13] MEDS: Paliperidone ER 6 MG TAB.ER.24 PO (08:01)
[2022-06-13] MEDS: Paliperidone Palmitate 234 MG/1.5 ML SYRINGE IM (10:58)
--- NOTE | 2022-06-13 11:48 | HO.PSYCHPN ---
Subjective Subjective Date of Service: 06/13/22 Reason For Visit: SI Interim History: pt denies side effects of medication, reiterates his desire to take paliperidone LANG. orders 234 mg for today and 156 mg for thursday. states he otherwise doesn't feel any different from when he came into the hospital, states his family have told him he has done best on sustenna and so he is heeding their advice. no complaints or requests. per staff, c/o anxiety and depression. states he is worried about his meds. attending groups. reporting paranoia. some difficulty making his sentiments and feelings clear to staff, perhaps some thought disorganization. Mental Status Exam Mental Status Exam Narrative: A&O. In street clothes, okay hygiene, normal body habitus. Intermittent eye contact, attentive. No Tics or Tremors. No abnormal involuntary movements. Calm, cooperative, engaged. Non-pressured speech, spontaneous with regular rate and rhythm, normal volume and prosody. No prolonged speech latency or dysarthria. affect is constricted, normo-intense, non-labile. no SI/HI/AVH expressed. Thoughts are coherent, organized. No known cognitive or memory impairment. Insight/ Judgment limited but adequate. Diagnostics Vital Signs (24Hr): Vital Signs - 24 hr 06/12/22 20:09 06/13/22 06:00 Temperature 97 F 97.9 F Pulse Rate 91 90 Respiratory Rate 16 18 Blood Pressure 135/62 126/72 Pulse Oximetry 94 95 Oxygen Delivery Method Room Air Room Air BMI result Body Mass Index 23.8 Labs Results: 06/09/22 14:37 06/11/22 08:34 Medications Medications Current Medications Acetaminophen (Acetaminophen 325 Mg Tablet) 650 mg PO Q6H PRN PRN Reason: Headache/Pain Mild Scale (1-3) Al Hydroxide/Mg Hydroxide (Magnesium Hydrox/Alum Hydrox 30 Ml Oral.Susp) 30 ml PO Q6H PRN PRN Reason: Heartburn/Nausea Hydroxyzine HCl (Hydroxyzine Hcl 25 Mg Tablet) 25 mg PO Q6H PRN PRN Reason: Anxiety Last Admin: 06/10/22 21:12 Dose: 25 mg Magnesium Hydroxide (Milk Of Magnesia 30 Ml Oral.Susp) 30 ml PO DAILY PRN PRN Reason: Constipation Methadone HCl (Methadone Hcl 20 Mg/2 Ml Oral.Conc) 120 mg PO DAILY [facility] Last Admin: 06/13/22 08:01 Dose: 120 mg Nicotine (Nicotine 21 Mg Patch.Td24) 21 mg TRANSDERMA DAILY [facility] Last Admin: 06/13/22 08:01 Dose: 21 mg Paliperidone Palmitate (Paliperidone Palmitate 156 Mg/Ml Syringe) 156 mg IM Q30D [facility] Trazodone HCl (Trazodone Hcl 50 Mg Tablet) 50 mg PO BEDTIME PRN PRN Reason: Insomnia Last Admin: 06/10/22 21:12 Dose: 50 mg Allergies Allergies Allergy/AdvReac Type Severity Reaction Status Date / Time No Known Allergies Allergy Verified 06/09/22 13:54 Assessment & Plan Assessment & Plan (1) Schizoaffective disorder, depressive type: Status: Acute Code(s): F25.1 - Schizoaffective disorder, depressive type (2) Opioid use disorder, moderate, dependence: Status: Acute Code(s): F11.20 - Opioid dependence, uncomplicated Plan Harsha is a 42 y.o. male who carries a dx of schizoaffective disorder, depressive type, and opioid use disorder. He presented to [facility] [place] [facility] on 06/09/22 due to passive suicidal ideation. Per CARE team cyn, pt?s functioning has been declining since 02/2022. He had been stable for 5 years on invega trinza, however his mother 05/2021 and then his psychiatrist retired, has been off his LANG sine 08/2021. He was started on low dose abilify in 03/2022 and bupropion XL. Pt has been using 3-5 bags of fentanyl via insufflation 3-5 times a week for over a year. Utox positive for both fentanyl and cannabis. Hx of multiple previous psych admissions, last in 2017. Onset of psychosis since age 17. 06/10: D/C abilify 5 mg, re-start invega at 6 mg. Hx of being on invega trinza 410 mg. D/c wellbutrin due to potential exacerbation in psychotic sx. 06/11: continue current mgmt. start invega sustenna LANG perhaps thursday if pt continue to tolerate PO medication. 06/12 continue tx. 06/13: DC PO paliperidone. give sustenna 234 mg today and 156 mg thursday. pt endorses ongoing psychotic Sx. I spent ___15___ minutes with the patient and/or on the patient floor today, greater than?50% of which was spent counseling/coordinating care. Reason for contiued inpatient stay Substantial Risk for: inability to function and rapid decompensation
--- NOTE | 2022-06-14 07:52 | HO.PSYCHPN ---
Subjective Subjective Date of Service: 06/14/22 Reason For Visit: SI Subjective Notes: Conditional Voluntary Interim History: Pt states do I really need to meet with you, everything is the same. Pt denies SI/HI/VH/AH. Pt reports sleeping and eating well. soreness on injection site. got Invega Sustenna yesterday. Medication Compliance: Yes Side effects from medications: No Review of Systems Constitutional: Reports no additional constitutional complaints, Denies chills, Denies fever(s) and Denies night sweats Eyes: Reports no additional eye complaints, Denies blurry vision, Denies change in vision, Denies diplopia, Denies eye discharge, Denies loss of vision and Denies eye pain Denies dizziness Cardiovascular: Reports no additional cardiovascular complaints, Denies chest pain, Denies lightheadedness, Denies Loss of Consciousness and Denies dyspnea Respiratory: Reports no additional respiratory complaints and Denies dyspnea Gastrointestinal: Reports no additional gastrointestinal complaints, Denies abdominal pain, Denies melena, Denies hematochezia, Denies change in bowel habits and Denies change in stool character Genitourinary: Reports no additional male genitourinary complaints, Denies hematuria, Denies oliguria, Denies difficulty urinating, Denies dysuria, Denies urinary frequency, Denies urinary hesitancy, Denies urinary incontinence and Denies urinary urgency Musculoskeletal: Reports no additional musculoskeletal complaints, Denies numbness and Denies tingling Denies dizziness, Denies loss of vision, Denies numbness and Denies tingling Psychiatric: Reports no additional psychiatric complaints, Reports depression and Reports suicidal ideation Endocrine: Reports no additional endocrine complaints Hematologic/Lymphatic: Reports no additional hematologic/lymphatic complaints Allergic/Immunologic: Reports no additional allergic/immunologic complaints Mental Status Exam Mental Status Exam Narrative: A&O. In street clothes, okay hygiene, normal body habitus. Intermittent eye contact, attentive. No Tics or Tremors. No abnormal involuntary movements. Calm, cooperative, engaged. Non-pressured speech, spontaneous with regular rate and rhythm, normal volume and prosody. No prolonged speech latency or dysarthria. affect is constricted, normo-intense, non-labile. no SI/HI/AVH expressed. Thoughts are coherent, organized. No known cognitive or memory impairment. Insight/ Judgment limited but adequate. Diagnostics Vital Signs (24Hr): Vital Signs - 24 hr 06/15/22 08:16 06/15/22 18:00 Temperature 97.2 F 98.0 F Pulse Rate 99 74 Respiratory Rate 18 18 Blood Pressure 127/67 100/52 L Pulse Oximetry 97 Oxygen Delivery Method Room Air Room Air BMI result Body Mass Index 23.8 Labs Results: 06/09/22 14:37 06/11/22 08:34 Medications Medications Current Medications Acetaminophen (Acetaminophen 325 Mg Tablet) 650 mg PO Q6H PRN PRN Reason: Headache/Pain Mild Scale (1-3) Al Hydroxide/Mg Hydroxide (Magnesium Hydrox/Alum Hydrox 30 Ml Oral.Susp) 30 ml PO Q6H PRN PRN Reason: Heartburn/Nausea Hydrocortisone (Hydrocortisone 1 % Ointment 28.35 Gm Tube) 1 appl TOPICAL BID [facility]; Protocol Last Admin: 06/15/22 21:27 Dose: 1 appl Hydroxyzine HCl (Hydroxyzine Hcl 25 Mg Tablet) 25 mg PO Q6H PRN PRN Reason: Anxiety Last Admin: 06/10/22 21:12 Dose: 25 mg Magnesium Hydroxide (Milk Of Magnesia 30 Ml Oral.Susp) 30 ml PO DAILY PRN PRN Reason: Constipation Methadone HCl (Methadone Hcl 20 Mg/2 Ml Oral.Conc) 120 mg PO DAILY [facility] Last Admin: 06/15/22 08:16 Dose: 120 mg Nicotine (Nicotine 21 Mg Patch.Td24) 21 mg TRANSDERMA DAILY [facility] Last Admin: 06/15/22 08:15 Dose: 21 mg Paliperidone Palmitate (Paliperidone Palmitate 156 Mg/Ml Syringe) 156 mg IM Q30D [facility] Trazodone HCl (Trazodone Hcl 50 Mg Tablet) 50 mg PO BEDTIME PRN PRN Reason: Insomnia Last Admin: 06/10/22 21:12 Dose: 50 mg Allergies Allergies Allergy/AdvReac Type Severity Reaction Status Date / Time No Known Allergies Allergy Verified 06/09/22 13:54 Assessment & Plan Assessment & Plan (1) Schizoaffective disorder, depressive type: Status: Acute Code(s): F25.1 - Schizoaffective disorder, depressive type (2) Opioid use disorder, moderate, dependence: Status: Acute Code(s): F11.20 - Opioid dependence, uncomplicated Plan Harsha is a 42 y.o. male who carries a dx of schizoaffective disorder, depressive type, and opioid use disorder. He presented to [facility] on 06/09/22 due to passive suicidal ideation. Per CARE team cyn pt?s functioning has been declining since 02/2022. He had been stable for 5 years on invega trinza, however his mother 05/2021 and then his psychiatrist retired, has been off his LANG sine 08/2021. He was started on low dose abilify in 03/2022 and bupropion XL. Pt has been using 3-5 bags of fentanyl via insufflation 3-5 times a week for over a year. Utox positive for both fentanyl and cannabis. Hx of multiple previous psych admissions, last in 2017. Onset of psychosis since age 17. 06/10: D/C abilify 5 mg, re-start invega at 6 mg. Hx of being on invega trinza 410 mg. D/c wellbutrin due to potential exacerbation in psychotic sx. 06/11: continue current mgmt. start invega sustenna LANG perhaps thursday if pt continue to tolerate PO medication. 06/12 continue tx. 06/13: DC PO paliperidone. give sustenna 234 mg today and 156 mg thursday. pt endorses ongoing psychotic Sx. 06/14 continue tx. I spent minutes with the patient and/or on the patient floor today, greater than?50% of which was spent counseling/coordinating care. Reason for contiued inpatient stay Substantial Risk for: inability to function
[2022-06-14 08:30] VITALS: BP 120/81; PULSE 94; RESP 20; TEMP 36.1; O2SAT 95
[2022-06-14] MEDS: methADONE HCl 20 MG/2 ML ORAL.CONC 120 MG PO (08:49)
[2022-06-14] MEDS: Nicotine 21 MG PATCH.TD24 TRANSDERMA (08:49)
[2022-06-14 22:00] VITALS: BP 131/71; PULSE 78; RESP 18; TEMP 36.4; O2SAT 96
[2022-06-15] MEDS: Nicotine 21 MG PATCH.TD24 TRANSDERMA (08:15)
[2022-06-15 08:16] VITALS: BP 127/67; PULSE 99; RESP 18; TEMP 36.2; O2SAT 97
[2022-06-15] MEDS: methADONE HCl 20 MG/2 ML ORAL.CONC 120 MG PO (08:16)
--- NOTE | 2022-06-15 10:24 | HO.PSYCHPN ---
Subjective Subjective Date of Service: 06/15/22 Reason For Visit: SI Subjective Notes: Conditional Voluntary Interim History: Pt states Everything is the same. Pt denies SI/HI/VH/AH. Pt reports sleeping and eating well. soreness on injection site. got Invega Sustenna- no s/s of infection. Review of Systems Constitutional: Reports no additional constitutional complaints, Denies chills, Denies fever(s) and Denies night sweats Eyes: Reports no additional eye complaints, Denies blurry vision, Denies change in vision, Denies diplopia, Denies eye discharge, Denies loss of vision and Denies eye pain Denies dizziness Cardiovascular: Reports no additional cardiovascular complaints, Denies chest pain, Denies lightheadedness, Denies Loss of Consciousness and Denies dyspnea Respiratory: Reports no additional respiratory complaints and Denies dyspnea Gastrointestinal: Reports no additional gastrointestinal complaints, Denies abdominal pain, Denies melena, Denies hematochezia, Denies change in bowel habits and Denies change in stool character Genitourinary: Reports no additional male genitourinary complaints, Denies hematuria, Denies oliguria, Denies difficulty urinating, Denies dysuria, Denies urinary frequency, Denies urinary hesitancy, Denies urinary incontinence and Denies urinary urgency Musculoskeletal: Reports no additional musculoskeletal complaints, Denies numbness and Denies tingling Denies dizziness, Denies loss of vision, Denies numbness and Denies tingling Psychiatric: Reports no additional psychiatric complaints, Reports depression and Reports suicidal ideation Endocrine: Reports no additional endocrine complaints Hematologic/Lymphatic: Reports no additional hematologic/lymphatic complaints Allergic/Immunologic: Reports no additional allergic/immunologic complaints Mental Status Exam Mental Status Exam Narrative: A&O. In street clothes, okay hygiene, normal body habitus. Intermittent eye contact, attentive. No Tics or Tremors. No abnormal involuntary movements. Calm, cooperative, engaged. Non-pressured speech, spontaneous with regular rate and rhythm, normal volume and prosody. No prolonged speech latency or dysarthria. affect is constricted, normo-intense, non-labile. no SI/HI/AVH expressed. Thoughts are coherent, organized. No known cognitive or memory impairment. Insight/ Judgment limited but adequate. Diagnostics Vital Signs (24Hr): Vital Signs - 24 hr 06/15/22 08:16 06/15/22 18:00 Temperature 97.2 F 98.0 F Pulse Rate 99 74 Respiratory Rate 18 18 Blood Pressure 127/67 100/52 L Pulse Oximetry 97 Oxygen Delivery Method Room Air Room Air BMI result Body Mass Index 23.8 Labs Results: 06/09/22 14:37 06/11/22 08:34 Medications Medications Current Medications Acetaminophen (Acetaminophen 325 Mg Tablet) 650 mg PO Q6H PRN PRN Reason: Headache/Pain Mild Scale (1-3) Al Hydroxide/Mg Hydroxide (Magnesium Hydrox/Alum Hydrox 30 Ml Oral.Susp) 30 ml PO Q6H PRN PRN Reason: Heartburn/Nausea Hydrocortisone (Hydrocortisone 1 % Ointment 28.35 Gm Tube) 1 appl TOPICAL BID [facility]; Protocol Last Admin: 06/15/22 21:27 Dose: 1 appl Hydroxyzine HCl (Hydroxyzine Hcl 25 Mg Tablet) 25 mg PO Q6H PRN PRN Reason: Anxiety Last Admin: 06/10/22 21:12 Dose: 25 mg Magnesium Hydroxide (Milk Of Magnesia 30 Ml Oral.Susp) 30 ml PO DAILY PRN PRN Reason: Constipation Methadone HCl (Methadone Hcl 20 Mg/2 Ml Oral.Conc) 120 mg PO DAILY [facility] Last Admin: 06/15/22 08:16 Dose: 120 mg Nicotine (Nicotine 21 Mg Patch.Td24) 21 mg TRANSDERMA DAILY [facility] Last Admin: 06/15/22 08:15 Dose: 21 mg Paliperidone Palmitate (Paliperidone Palmitate 156 Mg/Ml Syringe) 156 mg IM Q30D [facility] Trazodone HCl (Trazodone Hcl 50 Mg Tablet) 50 mg PO BEDTIME PRN PRN Reason: Insomnia Last Admin: 06/10/22 21:12 Dose: 50 mg Allergies Allergies Allergy/AdvReac Type Severity Reaction Status Date / Time No Known Allergies Allergy Verified 06/09/22 13:54 Assessment & Plan Assessment & Plan (1) Schizoaffective disorder, depressive type: Status: Acute Code(s): F25.1 - Schizoaffective disorder, depressive type (2) Opioid use disorder, moderate, dependence: Status: Acute Code(s): F11.20 - Opioid dependence, uncomplicated Plan Harsha is a 42 y.o. male who carries a dx of schizoaffective disorder, depressive type, and opioid use disorder. He presented to [facility] on 06/09/22 due to passive suicidal ideation. Per CARE team cyn, pt?s functioning has been declining since 02/2022. He had been stable for 5 years on invega trinza, however his mother 05/2021 and then his psychiatrist retired, has been off his LANG sine 08/2021. He was started on low dose abilify in 03/2022 and bupropion XL. Pt has been using 3-5 bags of fentanyl via insufflation 3-5 times a week for over a year. Utox positive for both fentanyl and cannabis. Hx of multiple previous psych admissions, last in 2017. Onset of psychosis since age 17. 06/10: D/C abilify 5 mg, re-start invega at 6 mg. Hx of being on invega trinza 410 mg. D/c wellbutrin due to potential exacerbation in psychotic sx. 06/11: continue current mgmt. start invega sustenna LANG perhaps thursday if pt continue to tolerate PO medication. 06/12 continue tx. 06/13: DC PO paliperidone. give sustenna 234 mg today and 156 mg thursday. pt endorses ongoing psychotic Sx. 06/14 continue tx. 06/15 continue tx. I spent minutes with the patient and/or on the patient floor today, greater than?50% of which was spent counseling/coordinating care. Reason for contiued inpatient stay Substantial Risk for: inability to function
[2022-06-15 18:00] VITALS: BP 100/52; PULSE 74; RESP 18; TEMP 36.7
[2022-06-15] MEDS: Hydrocortisone 1 % Ointment 28.35 GM TUBE 1 APPL TOPICAL (21:27)
[2022-06-16] MEDS: methADONE HCl 20 MG/2 ML ORAL.CONC 120 MG PO (09:07)
[2022-06-16] MEDS: Nicotine 21 MG PATCH.TD24 TRANSDERMA (09:07)
[2022-06-16] MEDS: Hydrocortisone 1 % Ointment 28.35 GM TUBE 1 APPL TOPICAL ×2 (09:39→20:36)
[2022-06-16 09:58] VITALS: BP 115/61; PULSE 97; RESP 16; TEMP 36.6; O2SAT 97
--- NOTE | 2022-06-16 14:05 | HO.PSYCHPN ---
Subjective Subjective Date of Service: 06/16/22 Reason For Visit: SI Interim History: calm, cooperative. appears a he did last week. poor eye contact, linear and logical. no complaints or requests, seems content to plan for discharge tomorrow. per staff, difficult to engage. flat, irritable. depressed. denies SI/HI. had good visit with family. reports he is feeling better than at admission. slept well overnight. Mental Status Exam Mental Status Exam Narrative: A&O. In street clothes, okay hygiene, normal body habitus. Intermittent eye contact, attentive. No Tics or Tremors. No abnormal involuntary movements. Calm, cooperative, engaged. Non-pressured speech, spontaneous with regular rate and rhythm, normal volume and prosody. No prolonged speech latency or dysarthria. affect is constricted, normo-intense, non-labile. mood OK, i guess. no SI/HI/AVH. Thoughts are coherent, organized. No known cognitive or memory impairment. Insight/ Judgment limited but adequate. Diagnostics Vital Signs (24Hr): Vital Signs - 24 hr 06/15/22 18:00 06/16/22 09:58 Temperature 98.0 F 97.9 F Pulse Rate 74 97 Respiratory Rate 18 16 Blood Pressure 100/52 L 115/61 Pulse Oximetry 97 Oxygen Delivery Method Room Air Room Air BMI result Body Mass Index 23.8 Labs Results: 06/09/22 14:37 06/11/22 08:34 Medications Medications Current Medications Acetaminophen (Acetaminophen 325 Mg Tablet) 650 mg PO Q6H PRN PRN Reason: Headache/Pain Mild Scale (1-3) Al Hydroxide/Mg Hydroxide (Magnesium Hydrox/Alum Hydrox 30 Ml Oral.Susp) 30 ml PO Q6H PRN PRN Reason: Heartburn/Nausea Hydrocortisone (Hydrocortisone 1 % Ointment 28.35 Gm Tube) 1 appl TOPICAL BID [facility]; Protocol Last Admin: 06/16/22 09:39 Dose: 1 appl Hydroxyzine HCl (Hydroxyzine Hcl 25 Mg Tablet) 25 mg PO Q6H PRN PRN Reason: Anxiety Last Admin: 06/10/22 21:12 Dose: 25 mg Magnesium Hydroxide (Milk Of Magnesia 30 Ml Oral.Susp) 30 ml PO DAILY PRN PRN Reason: Constipation Methadone HCl (Methadone Hcl 20 Mg/2 Ml Oral.Conc) 120 mg PO DAILY [facility] Last Admin: 06/16/22 09:07 Dose: 120 mg Nicotine (Nicotine 21 Mg Patch.Td24) 21 mg TRANSDERMA DAILY [facility] Last Admin: 06/16/22 09:07 Dose: 21 mg Paliperidone Palmitate (Paliperidone Palmitate 156 Mg/Ml Syringe) 156 mg IM Q30D [facility] Trazodone HCl (Trazodone Hcl 50 Mg Tablet) 50 mg PO BEDTIME PRN PRN Reason: Insomnia Last Admin: 06/10/22 21:12 Dose: 50 mg Allergies Allergies Allergy/AdvReac Type Severity Reaction Status Date / Time No Known Allergies Allergy Verified 06/09/22 13:54 Assessment & Plan Assessment & Plan (1) Schizoaffective disorder, depressive type: Status: Acute Code(s): F25.1 - Schizoaffective disorder, depressive type (2) Opioid use disorder, moderate, dependence: Status: Acute Code(s): F11.20 - Opioid dependence, uncomplicated Plan Harsha is a 42 y.o. male who carries a dx of schizoaffective disorder, depressive type, and opioid use disorder. He presented to [facility] on 06/09/22 due to passive suicidal ideation. Per CARE team cyn, pt?s functioning has been declining since 02/2022. He had been stable for 5 years on invega trinza, however his mother 05/2021 and then his psychiatrist retired, has been off his LANG sine 08/2021. He was started on low dose abilify in 03/2022 and bupropion XL. Pt has been using 3-5 bags of fentanyl via insufflation 3-5 times a week for over a year. Utox positive for both fentanyl and cannabis. Hx of multiple previous psych admissions, last in 2017. Onset of psychosis since age 17. 06/10: D/C abilify 5 mg, re-start invega at 6 mg. Hx of being on invega trinza 410 mg. D/c wellbutrin due to potential exacerbation in psychotic sx. 06/11: continue current mgmt. start invega sustenna LANG perhaps thursday if pt continue to tolerate PO medication. 06/12 continue tx. 06/13: DC PO paliperidone. give sustenna 234 mg today and 156 mg thursday. pt endorses ongoing psychotic Sx. 06/14 continue tx. 06/15 continue tx. 06/16: give sustenna 156 mg IM today. planning for discharge tomorrow. stable, denying Sx. I spent ___20___ minutes with the patient and/or on the patient floor today, greater than?50% of which was spent counseling/coordinating care. Reason for contiued inpatient stay Substantial Risk for: inability to function and rapid decompensation
[2022-06-16] MEDS: Paliperidone Palmitate 156 MG/ML SYRINGE IM (17:36)
[2022-06-16 20:30] VITALS: BP 113/76; PULSE 79; RESP 16; TEMP 36.8; O2SAT 94
[2022-06-17 09:45] VITALS: BP 127/64; PULSE 100; TEMP 36.9; O2SAT 97
[2022-06-17] MEDS: methADONE HCl 20 MG/2 ML ORAL.CONC 120 MG PO (09:59)
[2022-06-17] MEDS: Nicotine 21 MG PATCH.TD24 TRANSDERMA (10:02)
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
== END 2022-06-17 14:19 | disposition home or self-care (01) | DRG 885 ==
LOC: HO.ED 16:57 → HO.PADLT16 06-10 15:21
PROVIDERS: Physician Assistant Medical; Admitting Provider Social Worker; Emergency Provider Emergency Medicine; PCP Internal Medicine; Visit Provider Psychiatry & Neurology Psychiatry
DX: F25.1 Schizoaffective disorder, depressive type (principal); R45.851 Suicidal ideations; F11.20 Opioid dependence, uncomplicated; F17.210 Nicotine dependence, cigarettes, uncomplicated; Z23 Encounter for immunization; Z20.822 Contact with and (suspected) exposure to COVID-19; Z71.6 Tobacco abuse counseling; Z79.899 Other long term (current) drug therapy
CPT/HCPCS: 36415; 80053; 80061; 80143; 80179; 80307; 82077; 83036; 84443; 85025; 87635; 90686; 99285; J2426

== ENCOUNTER 2023-03-30 22:05 | Emergency (ER) | payer OTHER, MEDICAID, SELFPAY ==
[2023-03-30 22:31] VITALS: BP 125/84; PULSE 80; RESP 18; TEMP 37.1; O2SAT 96; BMI 18.5
--- NOTE | 2023-03-30 23:07 | ED.PSYCH ---
HPI - Psych General Chief Complaint: Psychiatric Symptoms Stated Complaint: Mental Health/Depression Time Seen by Provider: 03/30/23 23:01 Source: patient Mode of arrival: ambulatory Limitations: no limitations History of Present Illness HPI Narrative: patient history of bipolar disorder, schizoaffective disorder missed his Invega shot 1 week ago comes here for increased hallucinations unable to stay does not feel safe like to get admitted. Patient not eating feel depressed denies any SI Related Data Home Medications Medication Instructions Recorded Confirmed methadone 10 mg/mL oral syringe 121 mg PO DAILY 06/09/22 06/09/22 (FOR ORAL USE ONLY) Previous Rx's Medication Instructions Recorded paliperidone palmitate 156 mg/mL 156 mg IM Q30D #0 mL 06/17/22 intramuscular syringe (Invega Sustenna) Allergies Allergy/AdvReac Type Severity Reaction Status Date / Time No Known Allergies Allergy Verified 06/09/22 13:54 Review of Systems Review of Systems: Yes all other systems are reviewed and are negative PMFSH Past Medical History Medical History Depression Social History Social History Household Members: Other Household Members Other:: Step Father Housing: Apartment Do you presently have visiting nurse or other home services: No Alcohol intake: current Alcohol intake frequency: a few times a week Patient Tobacco Use Status: Current everyday Tobacco user Tobacco use type: Cigarette Cigarette Packs Per Day: 1 Cigarettes Per Day: 20.0 Years Smoked: 15 Smoked in Last 30 Days: Yes e-Cigarette/Vaping Use: Currently Using Second Hand Smoke Exposure: No Use of substances other than those prescribed or required for medical reasons: Yes Substance Use Type: Crack/Cocaine and Painkillers Advance Directives: No Advance Directives Information Provided: Yes service: No Sexual orientation: Don't Know Physical Exam Vital Signs: Vital Signs: Last Vital Signs Temp 98.3 F 03/31/23 06:32 Pulse 57 03/31/23 06:32 Resp 17 03/31/23 06:32 BP 107/70 03/31/23 06:32 Pulse Ox 99 03/31/23 06:32 O2 Del Method Room Air 03/31/23 06:32 BMI result Body Mass Index 18.5 Appearance: Alert. Oriented X3. No acute distress. Eyes: PERRLA, No Nystagmus ENT: Pharynx normal. Oral Mucosa moist ecchymosis left periorbital area EOMI normal visual meier Neck: Normal inspection. Neck supple. CVS: Normal heart rate and rhythm. Pulses normal. Respiratory: No respiratory distress. Equal air entry bilateral, no wheezing/rales/rhonchi Abdomen: Soft and nontender. Bowel sounds are present, Skin: Skin warm and dry. Normal skin color. Normal skin turgor. Extremities: No lower extremity edema. No calf tenderness Neuro: Oriented X 3. No motor deficit. No sensory deficit.No cerebellar signs , cranial nerves II-XII intact Medical Decision Making Medical Decision Making [facility] Narrative: Patient with depression with schizoaffective disorder will get care team involved for evaluation and placement Differential Diagnosis Differential Diagnoses: The differential diagnosis associated with the presentation includes Bipolar disorder/schizophrenia Lab Data [facility] Lab Attestation statement: I reviewed the patient's lab results. 03/31/23 00:14 03/31/23 00:14 Labs: Lab Results 03/31/23 Range/Units 00:14 WBC 9.2 (4.8-10.8) X10*3/uL RBC 4.60 (4.60-5.80) X10*6/uL Hgb 14.0 (14.0-18.0) g/dl Hct 41.1 L (42.0-52.0) % MCV 89.3 (80.0-98.0) fL MCH 30.4 (27.0-33.0) pg MCHC 34.1 (31.0-36.0) g/dl RDW 13.2 (11.0-16.0) % Plt Count 207 (160-400) X10*3/uL MPV 9.2 L (9.4-12.4) fL Immature Gran % (Auto) 0.2 (0.0-0.4) % Neut % (Auto) 63.5 (45-73) % Lymph % (Auto) 26.4 (20-40) % [place] % (Auto) 6.7 (2-11) % Eos % (Auto) 2.8 (0-4) % Baso % (Auto) 0.4 (0-2) % Lymph # (Auto) 2.4 (1.2-4.9) X10*3/uL [place] # (Auto) 0.6 (0.1-1.2) X10*3/uL Eos # (Auto) 0.3 (0.0-0.4) X10*3/uL Baso # (Auto) 0.0 (0.0-0.2) X10*3/uL Abs Immat Gran (auto) 0.02 (0.00-0.03) X10*3/uL Absolute Neuts (auto) 5.8 (2.0-8.3) x10*3/uL Absolute Nucleated RBC 0.000 (0.0-0.012) X10*3/uL Nucleated RBC % (auto) 0.0 (0.0-0.2) /100WBC Sodium 141 (135-145) mmol/L Potassium 4.0 (3.3-5.1) mmol/L Chloride 106 (96-108) mmol/L Carbon Dioxide 27 (22-29) mmol/L Anion Gap 12 (12-20) BUN 12 (9-16) mg/dL Creatinine 0.84 (0.5-1.4) mg/dL Estim Creat Clear Calc 97.7 Estimated GFR > 60 Random Glucose 122 H (60-115) mg/dL Calcium 9.3 D (8.4-10.2) mg/dL Total Bilirubin 0.3 (0.0-1.0) mg/dL AST 18 (5-37) U/L ALT 13 (0-40) U/L Alkaline Phosphatase 58 (39-117) U/L Total Protein 6.5 (6.5-8.0) g/dL Albumin 3.9 (3.5-5.0) g/dL Ethyl Alcohol < 10 mg/dL COVID-19 ([facility]YR[facility]) Negative (Negative) COVID-19 Clin Com See Note Discharge Plan Discharge Clinical Impression: Schizoaffective disorder, depressive type, Bipolar disorder Patient Disposition: Still a Patient Prescriptions: No Action methadone 10 mg/mL Syringe 121 mg PO DAILY Invega Sustenna 156 mg/mL Syringe 156 mg IM Q30D Qty: 0 0RF Interventions: Shaniko-Suicide Risk Severity Scale Last Done: 03/31/23 06:40
--- NOTE | 2023-03-31 | ECG_ITS ---
Test Reason : QTC Blood Pressure : / mmHG Vent. Rate : 058 BPM Atrial Rate : 058 BPM P-R Int : 168 ms QRS Dur : 090 ms QT Int : 436 ms P-R-T Axes : 070 079 078 degrees QTc Int : 428 ms Sinus bradycardia Nonspecific T wave abnormality Abnormal ECG No previous ECGs available Referred By: Henry Keenan Electronically Signed By:DACIA HENDRICKSON
[2023-03-31 00:18] LABS: MANUAL DIFF FLAG NO
[2023-03-31 00:19] LABS: Basophils Percent Auto 0.4 % (0-2); Eosinophils Absolute Auto 0.3 X10*3/uL (0.0-0.4); Eosinophils Percent Auto 2.8 % (0-4); Hematocrit 41.1 % (42.0-52.0); Imm Gran Abs Auto 0.02 X10*3/uL (0.00-0.03); Imm Gran Pct Auto 0.2 % (0.0-0.4); Lymphocytes Absolute Auto 2.4 X10*3/uL (1.2-4.9); Lymphocytes Percent Auto 26.4 % (20-40); Mean Corpuscular HGB Conc 34.1 g/dl (31.0-36.0); Mean Corpuscular Hemoglobin 30.4 pg (27.0-33.0); Mean Corpuscular Volume 89.3 fL (80.0-98.0); Mean Platelet Volume 9.2 fL (9.4-12.4); Monocytes Absolute Auto 0.6 X10*3/uL (0.1-1.2); Monocytes Percent Auto 6.7 % (2-11); Neutrophils Absolute Auto 5.8 x10*3/uL (2.0-8.3); Neutrophils Percent Auto 63.5 % (45-73); Platelet Count 207 X10*3/uL (160-400); Red Cell Distribution Width 13.2 % (11.0-16.0); White Blood Count 9.2 X10*3/uL (4.8-10.8)
[2023-03-31 00:37] LABS: Ethanol < 10 mg/dL
[2023-03-31 00:39] LABS: Alanine Aminotransferase 13 U/L (0-40); Albumin Level 3.9 g/dL (3.5-5.0); Alkaline Phosphatase 58 U/L (39-117); Anion Gap 12 (12-20); Aspartate Amino Transferase 18 U/L (5-37); Bilirubin Total 0.3 mg/dL (0.0-1.0); Blood Urea Nitrogen 12 mg/dL (9-16); Calcium 9.3 mg/dL (8.4-10.2); Carbon Dioxide 27 mmol/L (22-29); Chloride 106 mmol/L (96-108); Creatinine Clr Calc Pharmacy 97.7; Estimated Glomerular Filt Rate > 60; Glucose Random 122 mg/dL (60-115); Sodium 141 mmol/L (135-145); Total Protein 6.5 g/dL (6.5-8.0)
[2023-03-31 00:43] LABS: COVID-19 Test Negative (Negative); IDNOW Serial# 08D9AD1C
--- NOTE | 2023-03-31 05:43 | PC.NURSE ---
Report given to Shala LUI. Pt changed over into pod clothes and jaymie to 05.
[2023-03-31 06:32] VITALS: BP 107/70; PULSE 57; RESP 17; TEMP 36.8; O2SAT 99
--- NOTE | 2023-03-31 06:43 | PC.NURSE ---
Pt brought in from main ED. Report received from SANIA Sue. PT belongings placed in pod locker 5, patient belongings list completed by [facility]. Pt denies SI/HI at this time. states he is depressed. Urine sample collect and sent down to lab. safety checks in place. Plan of care on going
[2023-03-31 07:08] LABS: Amphetamine Screen Urine Not Detected (Not Detect); Barbiturates, Urine Not Detected (Not Detect); Benzodiazepines Screen Urine Not Detected (Not Detect); Cannabinoid Screen Urine POSITIVE (Not Detect); Cocaine Screen Urine POSITIVE (Not Detect); Fentanyl, urine POSITIVE (Not Detect); Opiate Screen Urine POSITIVE (Not Detect); Phencyclidine Screen Urine Not Detected (Not Detect)
[2023-03-31 07:31] LABS: Appearance Urine Clear; Color Urine Yellow; Glucose Urine UA Negative (Negative); Leukocyte Esterase Urine Trace (Negative); Nitrite Urine Negative (Negative); PH 5.5 (5.0-9.0); Specific Gravity - Urine 1.025 (1.005-1.025); UMIC TRIGGER UACC YES; Urine Blood Negative (Negative); Urine Ketones Negative (Negative); Urine Protein Negative (Neg-Trace)
--- NOTE | 2023-03-31 07:34 | HE.PHANOTE ---
RE: methadone Last dose verification received; [facility] last dose 118mg on 03/30/23 @[id number]
[2023-03-31 07:35] LABS: Bacteria Urine None Seen (None Seen); Hyaline Casts Urine 0-2 /LPF (0-2); RBC Urine 0-2 /HPF (0-2); Squamous Epithelial Cell Urine 0-2 /HPF (0-2); UACC Culture Trigger YES
[2023-03-31] MEDS: methADONE HCl 20 MG/2 ML ORAL.CONC 118 MG PO (08:21)
--- NOTE | 2023-03-31 08:32 | HE.PHANOTE ---
RE CHUCKIE Spoke to RN, dose of Invega was supposed to be due on 03/23. Py had med filled at pharmacy, picked up yesterday. Prefers to use his own stock. He is arranging to have invega brought in. It is due. Job
--- NOTE | 2023-03-31 13:11 | MHC.CARE ---
CARE Team contacts [facility] to confirm that pt missed his last scheduled Invega injection.? CARE Team spoke with Luis Alberto and Yokasta at medication management, both of which confirmed that pt missed his March 16 injection of Invega (No show).? Pt receives monthly injections of Invega with his next one due late March/Early April.
--- NOTE | 2023-03-31 13:31 | PC.NURSE ---
Invega Sustenna 156mg given to R Deltoid. S/N [id number] EXP LOT [id number].
--- NOTE | 2023-04-01 06:55 | MHC.CARE ---
Discharge Summary faxed to [facility] for his 1500 intake today.
== END 2023-03-31 18:53 | disposition home or self-care (01) ==
PROVIDERS: Emergency Provider Internal Medicine
DX: F25.0 Schizoaffective disorder, bipolar type (principal); F33.1 Major depressive disorder, recurrent, moderate; R00.1 Bradycardia, unspecified; F17.210 Nicotine dependence, cigarettes, uncomplicated; Z20.822 Contact with and (suspected) exposure to COVID-19; Z20.828 Contact with and (suspected) exposure to other viral communicable diseases; Z79.899 Other long term (current) drug therapy
CPT/HCPCS: 36415; 80053; 80307; 81001; 85025; 87086; 87635; 93005; 99285; S9485

== ENCOUNTER 2024-01-16 22:07 | Emergency (ER) | payer OTHER, SELFPAY ==
[2024-01-16 22:15] VITALS: BP 129/69; BP 198/92; PULSE 100; PULSE 90; RESP 18; TEMP 37; O2SAT 94; O2SAT 95; BMI 23.0
--- NOTE | 2024-01-16 22:23 | PC.NURSE ---
client got into bed and asked about methadone which there would be no way to verify, provider as yet has not come to interview patient, so perhaps provider can inform patient about our lack of ability to verify at this time.
--- NOTE | 2024-01-16 22:29 | PC.NURSE ---
client clarified he is not current at a methadone clinic.
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
[2024-01-16 23:03] LABS: Appearance Urine Clear; Color Urine Yellow; Glucose Urine UA Negative (Negative); Leukocyte Esterase Urine Trace (Negative); Nitrite Urine Negative (Negative); UMIC TRIGGER UACC YES; Urine Blood Negative (Negative); Urine Ketones Negative (Negative); Urine Protein Negative (Neg-Trace)
[2024-01-16 23:05] LABS: Bacteria Urine None Seen (None Seen); Hyaline Casts Urine 0-2 /LPF (0-2); RBC Urine 0-2 /HPF (0-2); Squamous Epithelial Cell Urine 0-2 /HPF (0-2); WBC Urine 0-5 /HPF (0-5)
[2024-01-16 23:13] LABS: Amphetamine Screen Urine Not Detected (Not Detect); Barbiturates, Urine Not Detected (Not Detect); Benzodiazepines Screen Urine Not Detected (Not Detect); Buprenorphine Scr Not Detected (Not Detect); Cannabinoid Screen Urine POSITIVE (Not Detect); Cocaine Screen Urine POSITIVE (Not Detect); Fentanyl, urine POSITIVE (Not Detect); Methadone Screen, Urine Not Detected (Not Detect); Opiate Screen Urine POSITIVE (Not Detect); Oxycodone Screen Urine Not Detected (Not Detect); Phencyclidine Screen Urine Not Detected (Not Detect)
[2024-01-16 23:32] LABS: MANUAL DIFF FLAG NO
[2024-01-16 23:33] LABS: Basophils Percent Auto 0.5 % (0-2); Eosinophils Absolute Auto 0.1 X10*3/uL (0.0-0.4); Eosinophils Percent Auto 1.4 % (0-4); Hematocrit 36.8 % (42.0-52.0); Hemoglobin 12.8 g/dl (14.0-18.0); Imm Gran Abs Auto 0.04 X10*3/uL (0.00-0.03); Imm Gran Pct Auto 0.5 % (0.0-0.4); Lymphocytes Absolute Auto 1.1 X10*3/uL (1.2-4.9); Lymphocytes Percent Auto 12.3 % (20-40); Mean Corpuscular HGB Conc 34.8 g/dl (31.0-36.0); Mean Corpuscular Hemoglobin 31.6 pg (27.0-33.0); Mean Corpuscular Volume 90.9 fL (80.0-98.0); Mean Platelet Volume 8.7 fL (9.4-12.4); Monocytes Absolute Auto 0.5 X10*3/uL (0.1-1.2); Monocytes Percent Auto 5.5 % (2-11); Neutrophils Percent Auto 79.8 % (45-73); Platelet Count 214 X10*3/uL (160-400); Red Blood Count 4.05 X10*6/uL (4.60-5.80); Red Cell Distribution Width 12.2 % (11.0-16.0); White Blood Count 8.7 X10*3/uL (4.8-10.8)
[2024-01-16 23:48] LABS: Alanine Aminotransferase 21 U/L (0-40); Albumin Level 4.1 g/dL (3.5-5.0); Alkaline Phosphatase 57 U/L (39-117); Anion Gap 11 (12-20); Aspartate Amino Transferase 25 U/L (5-37); Bilirubin Total 0.3 mg/dL (0.0-1.0); Blood Urea Nitrogen 17 mg/dL (9-16); Calcium 9.5 mg/dL (8.4-10.2); Carbon Dioxide 34 mmol/L (22-29); Chloride 102 mmol/L (96-108); Creatinine Clr Calc Pharmacy 85.7; Estimated Glomerular Filt Rate > 60; Glucose Random 89 mg/dL (60-115); Magnesium 1.9 mg/dL (1.6-2.6); Potassium 3.9 mmol/L (3.3-5.1); Sodium 143 mmol/L (135-145); Total Protein 6.5 g/dL (6.5-8.0)
[2024-01-16 23:49] LABS: Ethanol < 10 mg/dL
[2024-01-17 00:30] VITALS: PULSE 65
[2024-01-17] MEDS: LORazepam 1 MG TABLET 2 MG PO ×2 (01:35→09:46)
[2024-01-17 07:35] VITALS: RESP 16
--- NOTE | 2024-01-17 07:37 | PC.NURSE ---
Assumed care of patient at 0645, patient appears to be sleeping, respirations even and unlabored, no apparent distress noted. Patient has woken up and went back to sleep about 5 times in the past 45 minutes, asking about methadone and getting a dose. Per night RN, patient has not been on methadone for over a month therefore, new dosing regime would need to be started, patient aware there is no recovery team today. Pending CARE team follow up at this time
[2024-01-17] MEDS: busPIRone HCl 5 MG TABLET PO (08:49)
[2024-01-17 09:44] VITALS: PULSE 72
--- NOTE | 2024-01-17 10:06 | PC.NURSE ---
Patient getting agitated, demanding methadone from this RN. This RN educated patient that first, an order is needed for methadone second, since he has been off methadone for well over a month, we cannot start him at his last dose yet. MD Cheema aware that patient is becoming agitated
[2024-01-17 10:22] VITALS: RESP 14
--- NOTE | 2024-01-17 10:53 | PC.NURSE ---
Patient continues to ramp up, getting agitated, wanting to leave. Patient repeating that he is sick and he needs help. MD Deni cuba texted again. Awaiting answer
--- NOTE | 2024-01-17 11:42 | PC.NURSE ---
MD met with patient, patient continues to escalate, pacing around pod, then laying down, then getting up to yell about being sick. Patient unable to remain still for longer than 5 minutes. COWS score of 7 at this time
[2024-01-17 11:54] VITALS: PULSE 84
--- NOTE | 2024-01-17 12:00 | PC.NURSE ---
RE: methadone This RN reached out to Akiko Mckeon NP regarding patient's status and requesting methadone. Recommendation from Akiko is to start 30mg Methadone and if he continues to feel unwell, we can give 10mg Methadone to supplement. Dr. Cheema made aware at 1200
[2024-01-17] MEDS: methADONE HCl 20 MG/2 ML ORAL.CONC 30 MG PO (12:31)
[2024-01-17 13:42] VITALS: BP 109/56; PULSE 59; RESP 16; TEMP 36.3; O2SAT 100
== END 2024-01-17 13:43 | disposition home or self-care (01) ==
PROVIDERS: Physician Assistant; Emergency Provider Emergency Medicine; PCP Nurse Practitioner Family
DX: F25.0 Schizoaffective disorder, bipolar type (principal); R45.851 Suicidal ideations; R45.850 Homicidal ideations; F11.20 Opioid dependence, uncomplicated; F17.210 Nicotine dependence, cigarettes, uncomplicated; Z79.899 Other long term (current) drug therapy
CPT/HCPCS: 36415; 80053; 80307; 81001; 81003; 83735; 85025; 99285; S9485

== ENCOUNTER 2024-09-06 04:13 | Emergency (ER) | payer OTHER, SELFPAY ==
[2024-09-06 04:16] VITALS: BMI 18.5
--- OUTSIDE RECORDS SUMMARY | 2024-09-06 04:32 | XMS_ITS | Clinical Summary ---
Author Organization [address] [facility] Address [address] [place] [address] Phone Care Team Providers Care Material Flow Analyst Name Role Phone Unavailable Primary Care Provider Unavailabl e Encounters Date Type Department Care Team Description 06/10/2024 Lab Requisition [facility] Lab [address] [place] [address] Jackie Sena MD Opioid dependence, uncomplicated (CMS/HCC) 06/09/2024 Lab Requisition [facility] Lab [address] [place] [address] Jackie Sena MD Opioid dependence, uncomplicated (CMS/HCC) from Last 3 Months Social History Tobacco Use Types Packs/Day Years Used Date Smoking Tobacco: Never Assessed Sex and Gender Information Value Date Recorded Sex Assigned at Not on file Legal Sex Male 3:59 PM EST Gender Identity Not on file Sexual Orientation Not on file Plan of Treatment Health Maintenance Due Date Last Done Comments DTaP,Tdap,and Td Vaccines (1 - Tdap) 02/04/2000 Hepatitis B Vaccines (1 of 3 - 19+ 3-dose series) 02/04/2000 Cholesterol Screening (Lipid Panel) 06/18/2022 Depression Screening 06/18/2022 Social Influencers of Health Screening 06/18/2022 COVID-19 Vaccine ( - 2023-2 5 season) 2024 Influenza Vaccine (#1) 2024 HIV Screening Completed 06/10/2024 Hepatitis C Screening Completed 06/10/2024 HIB Vaccines Aged Out No longer eligi ble based on patient's age to complete this topic HPV Vaccines Aged Out No longer eligi ble based on patient's age to complete this topic Hepatitis A Vaccines Aged Out No long er eligible based on patient's age to complete this topic IPV Vaccines Aged Out No longer eligi ble based on patient's age to complete this topic MMR Vaccines Aged Out No longer eligi ble based on patient's age to complete this topic Meningococcal ACWY Vaccine Aged Out N o longer eligible based on patient's age to complete this topic Meningococcal B Vacine Aged Out No lo nger eligible based on patient's age to complete this topic Pneumococcal Vaccine: Pediat rics (0 to 5 Years) and At-Risk Patients (6 to 64 Years) Aged Out No longer eligi ble based on patient's age to complete this topic RSV Immunization Patients Un emanuel 20 months Aged Out No longer eligible b ased on patient's age to complete this topic Varicella Vaccines Aged Out No longer eligible based on patient's age to complete this topic Procedures Procedure Name Priority Date/Time Associated Diagnosis Comments HEPATITIS B SURFACE ANTIGEN WITH CONFIRMATION Routine 06/10/2024 10:57 AM EST Opioid dependence, uncomplicated (CMS/HCC) HEPATITIS B SURFACE ANTIBODY Routine 06/10/2024 10:57 AM EST Opioid dependence, uncomplicated (CMS/HCC) HEPATITIS C ANTIBODY Routine 06/10/2024 10:57 AM EST Opioid dependence, uncomplicated (CMS/HCC) HEPATITIS A ANTIBODY IGM Routine 06/10/2024 10:57 AM EST Opioid dependence, uncomplicated (CMS/HCC) HIV 1, 2 ANTIBODY, P24 ANTIGEN WITH REFLEX TO DIFFERENTIATION Routine 06/10/2024 10:57 AM EST Opioid dependence, uncomplicated (CMS/HCC) HEPATITIS B CORE ANTIBODY, TOTAL Routine 06/10/2024 10:57 AM EST Opioid dependence, uncomplicated (CMS/HCC) TREPONEMA PALLIDUM ANTIBODY WITH REFLEX TO RPR AND PARTICLE AGGLUTINATION Routine 06/10/2024 10:57 AM EST Opioid dependence, uncomplicated (CMS/HCC) COMPREHENSIVE METABOLIC PANEL Routine 06/10/2024 10:57 AM EST Opioid dependence, uncomplicated (CMS/HCC) COMPLETE BLOOD COUNT Routine 06/10/2024 10:57 AM EST Opioid dependence, uncomplicated (CMS/HCC) CHLAMYDIA TRACHOMATIS AND NEISSERIA GONORRHOEAE PCR Routine 06/09/2024 8:14 AM EST Opioid dependence, uncomplicated (CMS/HCC) from Last 3 Months Results * Hepatitis C antibody (06/10/2024 10:57 AM EST) Hepatitis C Antibody Negative Negative LAB CHEMISTRY METHOD 06/11/2024 1:14 AM EST [facility] Blood Venous blood specimen / Unknown 06/10/2024 10:57 AM EST 06/10/2024 2:22 PM EST Jackie Sena MD LAB BLOOD ORDERABLES Ed ited Result - Final Performing Organization Address [facility]/ZIP Co de Phone Number [facility] [address] [place] [address], * HIV 1,2 antibody, p24 antigen with reflex to differentiation (06/10/2024 10:57 AM EST) HIV Combo AB/AG Negative Negative LAB CHEMISTRY METHOD 06/11/2024 1:14 AM EST [facility] Blood Venous blood specimen / Unknown 06/10/2024 10:57 AM EST 06/10/2024 2:22 PM EST Narrative [facility] - 06/11/2024 1:14 AM EST This assay is a 4th generation assay allowing for earlier detection of HIV infection by detecting the presence of the HIV-1 p24 antigen as well as the traditional antibodies to HIV type 1 (including group O) and type 2. ??Use of a 4th generation assay is the current CDC recommendation for HIV screening. us Jackie Sena MD LAB BLOOD ORDERABLES Ed ited Result - Final Performing Organization Address [facility]/ZIP Co de Phone Number [facility] [address] [place] [address], * Hepatitis B surface antigen with reflex to confirmation (06/10/2024 10:57 AM EST) Pathologist [facility] Hepatitis B Surface Ag Negative Negative LAB CHEMISTRY METHOD 06/10/2024 6:40 PM EST [facility] Blood Venous blood specimen / Unknown 06/10/2024 10:57 AM EST 06/10/2024 2:22 PM EST Narrative [facility] - 06/10/2024 6:40 PM EST Over the counter supplements containing high doses of biotin may interfere with this assay. ??If interference is suspected, patients shoud be retested after refraining from biotin supplements for 72 hours. Jackie Sena MD LAB BLOOD ORDERABLES Fi nal Result Performing Organization Address [facility]/ZIP Co de Phone Number [facility] [address] [place] [address], * Treponema pallidum antibody with reflex to RPR and particle agglutination (06/10/2024 10:57 AM EST) [facility] T. Pallidum Antibodies Negative Negative LAB CHEMISTRY METHOD 06/10/2024 3:09 PM EST [facility] Blood Venous blood specimen / Unknown 06/10/2024 10:57 AM EST 06/10/2024 2:22 PM EST Jackie Sena MD LAB BLOOD ORDERABLES Fi nal Result Performing Organization Address City/[facility]/ZIP Co de Phone Number [facility] [address] [place] [address], [place] [phone] * Hepatitis A antibody IgM (06/10/2024 10:57 AM EST) Pathologist [facility] Hepatitis A Antibody IgM Negative Negative LAB CHEMISTRY METHOD 06/10/2024 3:46 PM EST [facility] Blood Venous blood specimen / Unknown 06/10/2024 10:57 AM EST 06/10/2024 2:22 PM EST Narrative [facility] - 06/10/2024 3:46 PM EST Over the counter supplements containing high doses of biotin may interfere with this assay. ??If interference is suspected, patients shoud be retested after refraining from biotin supplements for 72 hours. Jackie Sena MD LAB BLOOD ORDERABLES Fi nal Result Performing Organization Address [facility]/ZIP Co de Phone Number [facility] [address] [place] [address], [place] [phone] * Hepatitis B core antibody, total (06/10/2024 10:57 AM EST) Hep B Core Total Ab Negative Negative LAB CHEMISTRY METHOD 06/10/2024 3:45 PM EST [facility] Blood Venous blood specimen / Unknown 06/10/2024 10:57 AM EST 06/10/2024 2:22 PM EST Jackie Sena MD LAB BLOOD ORDERABLES Fi nal Result Performing Organization Address [facility]/ZIP Co de Phone Number [facility] [address] [place] [address], [place] [phone] * (ABNORMAL) Hepatitis B surface antibody (06/10/2024 10:57 AM EST) Hepatitis B Surface Ab Positive (A) Negative LAB CHEMISTRY METHOD 06/10/2024 6:29 PM EST [facility] Hepatitis B Surface Ab Quantitative 192.9 mIU/mL LAB CHEMISTRY METHOD 06/10/2024 6:29 PM EST [facility] Blood Venous blood specimen / Unknown 06/10/2024 10:57 AM EST 06/10/2024 2:22 PM EST Narrative [facility] - 06/10/2024 6:29 PM EST >=10 mIU/mL is considered to be consistent with immunity. Jackie Sena MD LAB BLOOD ORDERABLES Fi nal Result [facility] [address] [place] [address], * Complete blood count (06/10/2024 10:57 AM EST) [facility] WBC 6.5 4.8 - 10.8 K/mcL LAB HEMETOLOGY METHOD 06/10/2024 2:32 PM [facility] RBC 4.60 4.50 - 5.50 M/mcL LAB HEMETOLOGY METHOD 06/10/2024 2:32 PM [facility] Hemoglobin 13.8 13.5 - 17.5 g/dL LAB HEMETOLOGY METHOD 06/10/2024 2:32 PM [facility] Hematocrit 42.2 42.0 - 54.0 % LAB HEMETOLOGY METHOD 06/10/2024 2:32 PM [facility] MCV 92.5 79.0 - 98.0 FL LAB HEMETOLOGY METHOD 06/10/2024 2:32 PM [facility] MCH 30.3 27.0 - 32.0 pcg LAB HEMETOLOGY METHOD 06/10/2024 2:32 PM [facility] MCHC 32.7 32.0 - 37.0 g/dL LAB HEMETOLOGY METHOD 06/10/2024 2:32 PM [facility] RDW 12.3 11.0 - 15.0 % LAB HEMETOLOGY METHOD 06/10/2024 2:32 PM [facility] Platelets 286 130 - 400 K/mcL LAB HEMETOLOGY METHOD 06/10/2024 2:32 PM EST [facility] MPV 9.8 7.0 - 11.0 FL LAB HEMETOLOGY METHOD 06/10/2024 2:32 PM EST [facility] NRBC 0.0 <1.0 % LAB HEMETOLOGY METHOD 06/10/2024 2:32 PM EST [facility] NRBC Absolute 0.00 <0.10 K/mcL LAB HEMETOLOGY METHOD 06/10/2024 2:32 PM EST [facility] Blood Venous blood specimen / Unknown 06/10/2024 10:57 AM EST 06/10/2024 2:22 PM EST us Jackie Sena MD LAB BLOOD ORDERABLES Fi nal Result [facility] [address] [place] [address], * Comprehensive metabolic panel (06/10/2024 10:57 AM EST) Sodium 138 133 - 145 mmol/L LAB CHEMISTRY METHOD 06/11/2024 1:19 AM [facility] Potassium 4.5 3.5 - 5.5 mmol/L LAB CHEMISTRY METHOD 06/11/2024 1:19 AM [facility] Chloride 106 96 - 110 mmol/L LAB CHEMISTRY METHOD 06/11/2024 1:19 AM [facility] CO2 28 21 - 32 mmol/L LAB CHEMISTRY METHOD 06/11/2024 1:19 AM [facility] Anion Gap 4 3 - 11 LAB CHEMISTRY METHOD 06/11/2024 1:19 AM [facility] Glucose 77 70 - 100 mg/dL LAB CHEMISTRY METHOD 06/11/2024 1:19 AM [facility] BUN 12 5 - 25 mg/dL LAB CHEMISTRY METHOD 06/11/2024 1:19 AM [facility] Creatinine 0.79 0.70 - 1.30 mg/dL LAB CHEMISTRY METHOD 06/11/2024 1:19 AM [facility] eGFR 113 >=60 mL/min/1. 73m2 LAB CHEMISTRY METHOD 06/11/2024 1:19 AM [facility] Comment:Calculation based on the??Chronic Kidney Disease Epidemiology Collaboration (CKD-EPI) equation refit??without adjustment for race. BUN/Creatinine Ratio 15.2 LAB CHEMISTRY METHOD 06/11/2024 1:19 AM [facility] Calcium 9.6 8.5 - 10.5 mg/dL LAB CHEMISTRY METHOD 06/11/2024 1:19 AM [facility] AST (SGOT) 23 10 - 42 unit/L LAB CHEMISTRY METHOD 06/11/2024 1:19 AM [facility] ALT (SGPT) 24 10 - 60 unit/L LAB CHEMISTRY METHOD 06/11/2024 1:19 AM [facility] Alkaline Phosphatase 71 42 - 121 unit/L LAB CHEMISTRY METHOD 06/11/2024 1:19 AM [facility] Total Protein 6.8 6.0 - 8.0 g/dL LAB CHEMISTRY METHOD 06/11/2024 1:19 AM [facility] Albumin 3.9 3.2 - 5.0 g/dL LAB CHEMISTRY METHOD 06/11/2024 1:19 AM [facility] Total Bilirubin 0.4 0.0 - 1.4 mg/dL LAB CHEMISTRY METHOD 06/11/2024 1:19 AM [facility] Blood Venous blood specimen / Unknown 06/10/2024 10:57 AM EST 06/10/2024 2:22 PM EST us Jackie Sena MD LAB BLOOD ORDERABLES Ed ited Result - Final [facility] [address] [place] [address], [place] [phone] * Chlamydia trachomatis and Neisseria gonorrhoeae molecular study (06/09/2024 8:14 AM EST) Neisseria gonorrhoeae PCR Negative Negative LAB MOLECULAR DIAGNOSTICS METHOD 06/10/2024 9:52 AM EST [facility] Chlamydia trachomatis PCR Negative Negative LAB MOLECULAR DIAGNOSTICS METHOD 06/10/2024 9:52 AM EST [facility] Swab Urine specimen from urethra / Unknown 06/09/2024 8:14 AM EST 06/09/2024 2:10 PM EST Jackie Sena MD LAB MICROBIOLOGY - GENE RAL ORDERABLES Final Result [facility] [address] [place] [address], from Last 3 Months Insurance [facility] Member Subscriber Plan / Payer (Ef fective 2022-Present) Name:Crissy Mendez Relation to Subscriber:Spouse Name:CRISSY MENDEZ Date of :1981 Payer ID:[id number] Group ID:[id number] Type:Not on file Address: [address] [place] [place] [id number]
--- OUTSIDE RECORDS SUMMARY | 2024-09-06 04:32 | XMS_ITS | Encounter Summary ---
Author Organization [facility] Address [address] [place] [address] Care Team Providers Care Teacher Cclc Name Role Phone Unavailable Primary Care Provider Unavailabl e Encounter Details Date Type Department Care Team (Late st Contact Info) Description 06/09/2024 Lab Requisition [facility] - Main Lab [address] [place] [address] Jackie Sena MD [address] [place], [place] [id number] Opioid dependence, uncomplicated (CMS/HCC) Social History Tobacco Use Types Packs/Day Years Used Date Smoking Tobacco: Never Assessed Sex and Gender Information Value Date Recorded Sex Assigned at Not on file Legal Sex Male 3:59 PM EST Gender Identity Not on file Sexual Orientation Not on file documented as of this encounter Plan of Treatment Not on file documented as of this encounter Procedures Procedure Name Priority Date/Time Associated Diagnosis Comments CHLAMYDIA TRACHOMATIS AND NEISSERIA GONORRHOEAE PCR Routine 06/09/2024 8:14 AM EST Opioid dependence, uncomplicated (CMS/HCC) documented in this encounter Results * Chlamydia trachomatis and Neisseria gonorrhoeae molecular study (06/09/2024 8:14 AM EST) Neisseria gonorrhoeae PCR Negative Negative LAB MOLECULAR DIAGNOSTICS METHOD 06/10/2024 9:52 AM EST [facility] Chlamydia trachomatis PCR Negative Negative LAB MOLECULAR DIAGNOSTICS METHOD 06/10/2024 9:52 AM EST [facility] Swab Urine specimen from urethra / Unknown 06/09/2024 8:14 AM EST 06/09/2024 2:10 PM EST us Jackie Sena MD LAB MICROBIOLOGY - GENE RAL ORDERABLES Final Result [facility] [address] [place] [address], documented in this encounter Visit Diagnoses Diagnosis Opioid dependence, uncomplicated (CMS/HCC) documented in this encounter
--- OUTSIDE RECORDS SUMMARY | 2024-09-06 04:32 | XMS_ITS | Encounter Summary ---
Author Organization [facility] Address [address] [place] [address] Care Team Providers Care Park Services Specialist Name Role Phone Unavailable Primary Care Provider Unavailabl e Encounter Details Date Type Department Care Team (Late st Contact Info) Description 06/10/2024 Lab Requisition [facility] - Main Lab [address] [facility] [place] [address] Jackie Sena MD [address] [place] [address] Opioid dependence, uncomplicated (CMS/HCC) Social History Tobacco [...] Name Priority Date/Time Associated Diagnosis Comments HEPATITIS C ANTIBODY Routine 06/10/2024 10:57 AM EST Opioid dependence, uncomplicated (CMS/HCC) HIV 1, 2 ANTIBODY, P24 ANTIGEN WITH REFLEX TO DIFFERENTIATION Routine 06/10/2024 10:57 AM EST Opioid dependence, uncomplicated (CMS/HCC) HEPATITIS B SURFACE ANTIGEN WITH CONFIRMATION Routine [...] 10:57 AM EST Opioid dependence, uncomplicated (CMS/HCC) documented in this encounter Results * Hepatitis B surface antigen with reflex to confirmation (06/10/2024 10:57 AM EST) Pathologist [facility] Hepatitis B Surface Ag Negative Negative LAB CHEMISTRY METHOD 06/10/2024 6:40 PM EST [facility] Blood Venous blood specimen / Unknown 06/10/2024 10:57 AM EST 06/10/2024 2:22 PM EST Narrative [facility] - 06/10/2024 6:40 PM EST Over the counter supplements containing high doses of biotin may interfere with this assay. ??If interference is suspected, patients shoud be retested after refraining from biotin supplements for 72 hours. us Jackie Sena MD LAB BLOOD ORDERABLES Fi nal Result [facility] [address] [place] [address], * (ABNORMAL) Hepatitis B surface antibody (06/10/2024 10:57 AM EST) Pathologist [facility] Hepatitis B Surface Ab Positive (A) Negative LAB CHEMISTRY METHOD 06/10/2024 6:29 PM EST [facility] Hepatitis B Surface Ab Quantitative 192.9 mIU/mL LAB CHEMISTRY METHOD 06/10/2024 6:29 PM EST [facility] Blood Venous blood specimen / Unknown 06/10/2024 10:57 AM EST 06/10/2024 2:22 PM EST Narrative [facility] - 06/10/2024 6:29 PM EST >=10 mIU/mL is considered to be consistent with immunity. us Jackie Sena MD LAB BLOOD ORDERABLES Fi nal Result Performing Organization Address City/[facility]/ZIP Co de Phone Number [facility] [address] [place] [address], [place] [phone] * Hepatitis C antibody (06/10/2024 10:57 AM EST) Hepatitis C Antibody Negative Negative LAB CHEMISTRY METHOD 06/11/2024 1:14 AM EST [facility] Blood Venous blood specimen / Unknown 06/10/2024 10:57 AM EST 06/10/2024 2:22 PM EST us Jackie Sena MD LAB BLOOD ORDERABLES Ed ited Result - Final Performing Organization Address [facility] Co de Phone Number [facility] [address] [place] [address], [place] [phone] * Hepatitis A antibody IgM (06/10/2024 10:57 AM EST) Hepatitis A Antibody IgM Negative Negative LAB CHEMISTRY METHOD 06/10/2024 3:46 PM EST [facility] Blood Venous blood specimen / Unknown 06/10/2024 10:57 AM EST 06/10/2024 2:22 PM EST Narrative [facility] - 06/10/2024 3:46 PM EST Over the counter supplements containing high doses of biotin may interfere with this assay. ??If interference is suspected, patients shoud be retested after refraining from biotin supplements for 72 hours. us Jackie Sena MD LAB BLOOD ORDERABLES Fi nal Result Performing Organization Address [facility]/ZIP Co de Phone Number [facility] [address] [place] [address], [place] [phone] * HIV 1,2 antibody, p24 antigen with reflex to differentiation (06/10/2024 10:57 AM EST) HIV Combo AB/AG Negative Negative LAB CHEMISTRY METHOD 06/11/2024 1:14 AM EST [facility] Blood Venous blood specimen / Unknown 06/10/2024 10:57 AM EST 06/10/2024 2:22 PM EST Narrative [facility] - 06/11/2024 1:14 AM EST This assay is a 4th generation assay allowing for earlier detection of HIV infection by detecting the presence of the HIV-1 p24 antigen as well as the traditional antibodies to HIV type 1 (including group O) and type 2. ??Use of a 4th generation assay is the current CDC recommendation for HIV screening. Jackie Sena MD LAB BLOOD ORDERABLES Ed ited Result - Final Performing Organization Address [facility] Co de Phone Number [facility] [address] [place] [address], [place] [phone] * Hepatitis B core antibody, total (06/10/2024 10:57 AM EST) Hep B Core Total Ab Negative Negative LAB CHEMISTRY METHOD 06/10/2024 3:45 PM EST [facility] Blood Venous blood specimen / Unknown 06/10/2024 10:57 AM EST 06/10/2024 2:22 PM EST Jackie Sena MD LAB BLOOD ORDERABLES Fi nal Result Performing Organization Address [facility]/ZIP Co de Phone Number [facility] [address] [place] [address], [place] [phone] * Treponema pallidum antibody with reflex to RPR and particle agglutination (06/10/2024 10:57 AM EST) Pathologist [facility] T. Pallidum Antibodies Negative Negative LAB CHEMISTRY METHOD 06/10/2024 3:09 PM [facility] Blood Venous blood specimen / Unknown 06/10/2024 10:57 AM EST 06/10/2024 2:22 PM EST us Jackie Sena MD LAB BLOOD ORDERABLES Fi nal Result [facility] [address] [place] [address], [place] [phone] * Comprehensive metabolic panel (06/10/2024 10:57 AM EST) Pathologist [facility] Sodium 138 133 - 145 mmol/L LAB CHEMISTRY METHOD 06/11/2024 1:19 AM [facility] Potassium 4.5 3.5 - 5.5 mmol/L LAB CHEMISTRY METHOD 06/11/2024 1:19 AM [facility] Chloride 106 96 - 110 mmol/L LAB CHEMISTRY METHOD 06/11/2024 1:19 AM [facility] CO2 28 21 - 32 mmol/L LAB CHEMISTRY METHOD 06/11/2024 1:19 AM [facility] Anion Gap 4 3 - 11 LAB CHEMISTRY METHOD 06/11/2024 1:19 AM [facility] Glucose 77 70 - 100 mg/dL LAB CHEMISTRY METHOD 06/11/2024 1:19 AM [facility] BUN 12 5 - 25 mg/dL LAB CHEMISTRY METHOD 06/11/2024 1:19 AM [facility] Creatinine 0.79 0.70 - 1.30 mg/dL LAB CHEMISTRY METHOD 06/11/2024 1:19 AM [facility] eGFR 113 >=60 mL/min/1. 73m2 LAB CHEMISTRY METHOD 06/11/2024 1:19 AM [facility] Comment:Calculation based on the??Chronic Kidney Disease Epidemiology Collaboration (CKD-EPI) equation refit??without adjustment for race. BUN/Creatinine Ratio 15.2 LAB CHEMISTRY METHOD 06/11/2024 1:19 AM [facility] Calcium 9.6 8.5 - 10.5 mg/dL LAB CHEMISTRY METHOD 06/11/2024 1:19 AM [facility] AST (SGOT) 23 10 - 42 unit/L LAB CHEMISTRY METHOD 06/11/2024 1:19 AM [facility] ALT (SGPT) 24 10 - 60 unit/L LAB CHEMISTRY METHOD 06/11/2024 1:19 AM [facility] Alkaline Phosphatase 71 42 - 121 unit/L LAB CHEMISTRY METHOD 06/11/2024 1:19 AM [facility] Total Protein 6.8 6.0 - 8.0 g/dL LAB CHEMISTRY METHOD 06/11/2024 1:19 AM [facility] Albumin 3.9 3.2 - 5.0 g/dL LAB CHEMISTRY METHOD 06/11/2024 1:19 AM [facility] Total Bilirubin 0.4 0.0 - 1.4 mg/dL LAB CHEMISTRY METHOD 06/11/2024 1:19 AM [facility] Blood Venous blood specimen / Unknown 06/10/2024 10:57 AM EST 06/10/2024 2:22 PM EST us Jackie Sena MD LAB BLOOD ORDERABLES Ed ited Result - Final [facility] [address] [place] [address], [place] [phone] * Complete blood count (06/10/2024 10:57 AM EST) WBC 6.5 4.8 - 10.8 K/mcL LAB HEMETOLOGY METHOD 06/10/2024 2:32 PM [facility] RBC 4.60 4.50 - 5.50 M/mcL LAB HEMETOLOGY METHOD 06/10/2024 2:32 PM [facility] Hemoglobin 13.8 13.5 - 17.5 g/dL LAB HEMETOLOGY METHOD 06/10/2024 2:32 PM [facility] Hematocrit 42.2 42.0 - 54.0 % LAB HEMETOLOGY METHOD 06/10/2024 2:32 PM [facility] MCV 92.5 79.0 - 98.0 FL LAB HEMETOLOGY METHOD 06/10/2024 2:32 PM [facility] MCH 30.3 27.0 - 32.0 pcg LAB HEMETOLOGY METHOD 06/10/2024 2:32 PM [facility] MCHC 32.7 32.0 - 37.0 g/dL LAB HEMETOLOGY METHOD 06/10/2024 2:32 PM [facility] RDW 12.3 11.0 - 15.0 % LAB HEMETOLOGY METHOD 06/10/2024 2:32 PM [facility] Platelets 286 130 - 400 K/mcL LAB HEMETOLOGY METHOD 06/10/2024 2:32 PM [facility] MPV 9.8 7.0 - 11.0 FL LAB HEMETOLOGY METHOD 06/10/2024 2:32 PM [facility] NRBC 0.0 <1.0 % LAB HEMETOLOGY METHOD 06/10/2024 2:32 PM [facility] NRBC Absolute 0.00 <0.10 K/mcL LAB HEMETOLOGY METHOD 06/10/2024 2:32 PM [facility] Blood Venous blood specimen / Unknown 06/10/2024 10:57 AM EST 06/10/2024 2:22 PM EST us Jackie Sena MD LAB BLOOD ORDERABLES Fi nal Result [facility] [address] [place] [address], documented in this encounter Visit Diagnoses Diagnosis Opioid dependence, uncomplicated (CMS/HCC) documented in this encounter
--- OUTSIDE RECORDS SUMMARY | 2024-09-06 04:32 | XMS_ITS | Continuity of Care Document ---
Author Organization [facility] ter Address [address] [place] [address]- Care Team Providers Care Sales Manager Name Role Phone Mikal Fishman NP Primary Care Physician [phone] Encounter [facility] Date(s): 09/05/24 - 09/05/[address] [address]- Discharge Disposition: A-D/C Walkout Attending Physician: Not on Staff, Attending MD Admitting Physician: Not on Staff, Admitting MD Referring Physician: Not on Staff, Referring MD Encounter Type: Disch ES Allergies, Adverse Reactions, Alerts Substance Criticality Severity Reaction Reaction Severity Status lithium Active Immunizations Given and Recorded Vaccine Date Status Refusal Reason tetanus/diphtheria/pertussis, acel(Tdap) 1 08/01/22 Given influenza virus vaccine, inactivated 06/10/22 Drew rded SARS-CoV-2 (COVID-19) mRNA-1273 vaccine 04/15/22 R ecorded 1Result Comment: [facility] [id number] Medications Invega Sustenna 156 mg/mL intramuscular suspension, extended release = 156 mg, Intramuscular, Every 28 days, 0 Refills, Maintenance, 06/23/22 11:47:00 AM EST, Partial fill upon patient request if the prescription is for a schedule II opioid drug. Start Date: 06/23/22 Status: Ordered Repeat number: 1 Methadone Liquid mg, By Mouth, 0 Refills, Maintenance, 06/25/20 5:14:00 PM EST, Solution, Partial fill upon patient request if the prescription is for a schedule II opioid drug. Start Date: 06/25/20 Status: Ordered Repeat number: 1 omeprazole 20 mg oral enteric coated capsule 1 capsule = 20 mg, By Mouth, Daily, 30 min before a meal., # 90 capsule, 0 Refills, Maintenance, 07/28/24 9:29:00 AM EST, [facility]/pharmacy #[id number], Partial fill upon patient request if the prescription is for a schedule II opioid drug., 178.6, cm, 07/01/24 9:35:00 EST, Height Start Date: 07/28/24 Stop Date: 08/27/24 Status: Ordered Quantity: 90.0 Unit: capsule Repeat number: 1 Problem List Condition Confirmation Course Effective Dates Status H ealth Status Informant Chronic bipolar disorder Confirmed Active Bipolar depression Confirmed Active Chronic left hip pain Confirmed Active Schizoaffective disorder Confirmed Active Substance use disorder Confirmed Active Tobacco use disorder Confirmed Active Underweight Confirmed Active Vital Signs Most recent to oldest [Reference Range]: 1 Height 180 cm (09/05/24 9:21 PM) Weight 59.5 kg (09/05/24 9:21 PM) Oxygen Saturation [94-100 %] 100 % (09/05/24 9:21 PM) Pulse Rate [55-90 bpm] 90 bpm (09/05/24 9:21 PM) Body Mass Index [18.5-24.99 kg/m2] 18.36 kg/m2 *L* (09/05/24 9:21 PM) Blood Pressure [90-138/55-84 mm Hg] 120/ 83mm Hg (09/05/24 9:21 PM) Respiratory Rate [16-30 br/min] 18 br/mi n (09/05/24 9:21 PM) Temperature [96.8-100.4 DegF] 98.8 DegF (09/05/24 9:21 PM) Mode of Delivery (Oxygen) Room air (09/05/24 9:21 PM) Blood pressure sites Arm, right (09/05/24 9:21 PM) Temperature Route Oral (09/05/24 9:21 PM) Dry Weight 59.5 kg (09/05/24 9:21 PM) Weight Obtained Via Standing scale (09/05/24 9:21 PM) Dry Weight Obtained Via Standing scale (09/05/24 9:21 PM) Social History Social History Type Response Tobacco Use: 4 or less cigar ettes(less than 1/4 pack)/day in last 30 days. Interested in cessation: No. No, Other: not every day. Sex Sex Representation Male (finding) Patient Care team information Care Team Personnel Name: Mikal Fishman NP Position: [facility] PCO Associate Professional Member Role: PCP Address: [address] [place] [address] [address] [place], [place] [address] Telecom: Care Team Related Persons Name: ZARA DEAN Name: ROSIBEL DEAN Name: PT STATES, NO ONE Insurance Providers Guarantor name: [employer] Health Plan Information #: 1 Payer: [employer] Member Number: [id number] Policy Number: NA Group Number: NA Health Plan Information #: 2 Payer: [employer] Member Number: [id number] Policy Number: NA Group Number: NA
--- NOTE | 2024-09-06 04:40 | PC.NURSE ---
pt told this rn he was leaving [facility] opens at 0530 anyways charge aide made aware
== END 2024-09-06 04:44 | disposition left against medical advice (07) ==
PROVIDERS: Emergency Provider Emergency Medicine
DX: F11.20 Opioid dependence, uncomplicated (principal); Z53.21 Procedure and treatment not carried out due to patient leaving prior to being seen by health care provider
CPT/HCPCS: 99281

== ENCOUNTER 2024-09-15 13:20 | Emergency (ER) | payer OTHER, SELFPAY ==
[2024-09-15 13:40] VITALS: BP 100/65; PULSE 73; RESP 18; TEMP 36.9; O2SAT 98; BMI 18.1
--- NOTE | 2024-09-15 13:47 | ED_ITS ---
HPI - General Adult General Chief complaint: Anxiety Stated complaint: anxiety History of Present Illness HPI narrative: Patient left before completion of treatment by ED provider. Related Data Home Medications ?Medication ?Instructions ?Recorded ?Confirmed methadone 10 mg/mL oral syringe 118 mg PO DAILY 06/09/22 03/31/23 (FOR ORAL USE ONLY) buspirone 5 mg tablet 5 mg PO BID 01/17/24 01/17/24 melatonin 3 mg tablet 3 mg PO NEEDED PRN Insomnia 01/17/24 01/17/24 trazodone 50 mg tablet 50 mg PO BEDTIME 01/17/24 01/17/24 Previous Rx's ?Medication ?Instructions ?Recorded paliperidone palmitate 156 mg/mL 156 mg IM Q30D #0 mL 06/17/22 intramuscular syringe (Invega Sustenna) Allergies Allergy/AdvReac Type Severity Reaction Status Date / Time lithium Allergy Unknown Unknown Verified 09/15/24 13:44 [facility] Past Medical History Medical History Depression Social History Social History Household Members: Other Household Members Other:: Step Father Housing: Apartment Do you presently have visiting nurse or other home services: No Alcohol intake: current Alcohol intake frequency: holidays/special occasions only Patient Tobacco Use Status: Current everyday Tobacco user Tobacco use type: Cigarette Cigarette Packs Per Day: 1 Cigarettes Per Day: 20.0 Years Smoked: 15 e-Cigarette/Vaping Use: Currently Using Second Hand Smoke Exposure: No Substance Use Type: Crack/Cocaine, Heroin and Opiates Advance Directives: No Advance Directives Information Provided: No Do you have a plan to hurt others: No Plan service: No Sexual orientation: Don't Know Physical Exam ED Vital Signs: Vital Signs - 24 hr 09/15/24 13:40 Temperature 98.4 F Pulse Rate 73 Respiratory Rate 18 Blood Pressure 100/65 Pulse Oximetry 98 Oxygen Delivery Method Room Air BMI result Body Mass Index 18.1 Course Course Course Narrative: RME: 44-year-old male presents to the ED requesting anxiety medication for his anxiety. Patient states increased life stressors ( money isssues). Patient denies any auditory/visual hallucinations. Patient denies any suicidal/homicidal ideation. Patient denies missing work or any decreased appetite. Patient does not want to speak to care team. Discharge Plan Discharge Clinical Impression: Acute anxiety Patient Disposition: Left W/O Completing Treatment Prescriptions: No Action methadone 10 mg/mL Syringe 118 mg PO DAILY Rx Instructions: Confirmed with Tricia PORRAS at [facility]. LD was on 03/30/23 at 118mg's @ 1156 Invega Sustenna 156 mg/mL Syringe 156 mg IM Q30D Qty: 0 0RF Rx Instructions: per pt due 02/14/24 buspirone 5 mg tablet 5 mg PO BID trazodone 50 mg tablet 50 mg PO BEDTIME melatonin 3 mg tablet 3 mg PO NEEDED PRN (Reason: Insomnia) Discharge Date/Time: 09/15/24 17:46
--- OUTSIDE RECORDS SUMMARY | 2024-09-15 19:38 | XMS_ITS | Encounter Summary ---
Author Organization [employer] Address [address] [place] [address] Care Team Providers Care Supervisor Slitting And Shipping Name Role Phone Unavailable Primary Care Provider Unavailabl e Encounter Details Date Type Department Care Team (Late st Contact Info) Description 06/10/2024 Lab Requisition [facility] - Main Lab [address] [facility] [place] [address] Jackie Sena MD [address] [place] [address] Opioid dependence, uncomplicated (CMS/HCC) Social [...] to confirmation (06/10/2024 10:57 AM EST) Pathologist [facility] Hepatitis B Surface Ag Negative Negative LAB CHEMISTRY METHOD 06/10/2024 6:40 PM EST [facility] Blood Venous blood specimen / Unknown 06/10/2024 10:57 AM EST 06/10/2024 2:22 PM EST Narrative [facility] - 06/10/2024 6:40 PM EST Over the counter supplements containing high doses of biotin may interfere with this assay. ??If interference is suspected, patients shoud be retested after refraining from biotin supplements for 72 hours. us Jackie Sena MD LAB BLOOD ORDERABLES Fi nal Result [facility] [address] [place] [address], * (ABNORMAL) Hepatitis B surface antibody (06/10/2024 10:57 AM EST) Pathologist [facility] Hepatitis B Surface Ab Positive (A) Negative LAB CHEMISTRY METHOD 06/10/2024 6:29 PM EST [facility] Hepatitis B Surface Ab Quantitative 192.9 mIU/mL LAB CHEMISTRY METHOD 06/10/2024 6:29 PM EST [facility] Blood Venous blood specimen / Unknown 06/10/2024 10:57 AM EST 06/10/2024 2:22 PM EST Narrative [facility] - 06/10/2024 6:29 PM EST >=10 mIU/mL is considered to be consistent with immunity. us Jackie Sena MD LAB BLOOD ORDERABLES Fi nal Result Performing Organization Address City/[facility]/ZIP Co de Phone Number [facility] [address] [place] [address], [place] [phone] * Hepatitis C antibody (06/10/2024 10:57 AM EST) Hepatitis C Antibody Negative Negative LAB CHEMISTRY METHOD 06/11/2024 1:14 AM EST [facility] Blood Venous blood specimen / Unknown 06/10/2024 10:57 AM EST 06/10/2024 2:22 PM EST us Jackie Sena MD LAB BLOOD ORDERABLES Ed ited Result - Final Performing Organization Address [facility] Co de Phone Number [facility] [address] [place] [address], [place] [phone] * Hepatitis A antibody IgM (06/10/2024 10:57 AM EST) Hepatitis A Antibody IgM Negative Negative LAB CHEMISTRY METHOD 06/10/2024 3:46 PM EST [facility] Blood Venous blood specimen / Unknown 06/10/2024 10:57 AM EST 06/10/2024 2:22 PM EST Narrative [facility] - 06/10/2024 3:46 PM EST Over the counter supplements containing high doses of biotin may interfere with this assay. ??If interference is suspected, patients shoud be retested after refraining from biotin supplements for 72 hours. us Jackie Sena MD LAB BLOOD ORDERABLES Fi nal Result Performing Organization Address [facility]/ZIP Co de Phone Number [facility] [address] [place] [address], [place] [phone] * HIV 1,2 antibody, p24 antigen with reflex to differentiation (06/10/2024 10:57 AM EST) HIV Combo AB/AG Negative Negative LAB CHEMISTRY METHOD 06/11/2024 1:14 AM EST [facility] Blood Venous blood specimen / Unknown 06/10/2024 10:57 AM EST 06/10/2024 2:22 PM EST Narrative [facility] - 06/11/2024 1:14 AM [...] ited Result - Final Performing Organization Address [facility] Co de Phone Number [facility] [address] [place] [address], [place] [phone] * Hepatitis B core antibody, total (06/10/2024 10:57 AM EST) Hep B Core Total Ab Negative Negative LAB CHEMISTRY METHOD 06/10/2024 3:45 PM EST [facility] Blood Venous blood specimen / Unknown 06/10/2024 10:57 AM EST 06/10/2024 2:22 PM EST Jackie Sena MD LAB BLOOD ORDERABLES Fi nal Result Performing Organization Address [facility]/ZIP Co de Phone Number [facility] [address] [place] [address], [place] [phone] * Treponema pallidum antibody with reflex to RPR and particle agglutination (06/10/2024 10:57 AM EST) Pathologist [facility] T. Pallidum Antibodies Negative Negative LAB CHEMISTRY METHOD 06/10/2024 3:09 PM [facility] Blood Venous blood specimen / Unknown 06/10/2024 10:57 AM EST 06/10/2024 2:22 PM EST us Jackie Sena MD LAB BLOOD ORDERABLES Fi nal Result [facility] [address] [place] [address], [place] [phone] * Comprehensive metabolic panel (06/10/2024 10:57 AM EST) Pathologist [facility] Sodium 138 133 - 145 mmol/L LAB CHEMISTRY METHOD 06/11/2024 1:19 AM [facility] Potassium 4.5 3.5 - 5.5 mmol/L LAB CHEMISTRY METHOD 06/11/2024 1:19 AM [facility] Chloride 106 96 - 110 mmol/L LAB CHEMISTRY METHOD 06/11/2024 1:19 AM [facility] CO2 28 21 - 32 mmol/L LAB CHEMISTRY METHOD 06/11/2024 1:19 AM [facility] Anion Gap 4 3 - 11 LAB CHEMISTRY METHOD 06/11/2024 1:19 AM [facility] Glucose 77 70 - 100 mg/dL LAB CHEMISTRY METHOD 06/11/2024 1:19 AM [facility] BUN 12 5 - 25 mg/dL LAB CHEMISTRY METHOD 06/11/2024 1:19 AM [facility] Creatinine 0.79 0.70 - 1.30 mg/dL LAB CHEMISTRY METHOD 06/11/2024 1:19 AM [facility] eGFR 113 >=60 mL/min/1. 73m2 LAB CHEMISTRY METHOD 06/11/2024 1:19 AM [facility] Comment:Calculation based on the??Chronic Kidney Disease Epidemiology Collaboration (CKD-EPI) equation refit??without adjustment for race. BUN/Creatinine Ratio 15.2 LAB CHEMISTRY METHOD 06/11/2024 1:19 AM [facility] Calcium 9.6 8.5 - 10.5 mg/dL LAB CHEMISTRY METHOD 06/11/2024 1:19 AM [facility] AST (SGOT) 23 10 - 42 unit/L LAB CHEMISTRY METHOD 06/11/2024 1:19 AM [facility] ALT (SGPT) 24 10 - 60 unit/L LAB CHEMISTRY METHOD 06/11/2024 1:19 AM [facility] Alkaline Phosphatase 71 42 - 121 unit/L LAB CHEMISTRY METHOD 06/11/2024 1:19 AM [facility] Total Protein 6.8 6.0 - 8.0 g/dL LAB CHEMISTRY METHOD 06/11/2024 1:19 AM [facility] Albumin 3.9 3.2 - 5.0 g/dL LAB CHEMISTRY METHOD 06/11/2024 1:19 AM [facility] Total Bilirubin 0.4 0.0 - 1.4 mg/dL LAB CHEMISTRY METHOD 06/11/2024 1:19 AM [facility] Blood Venous blood specimen / Unknown 06/10/2024 10:57 AM EST 06/10/2024 2:22 PM EST us Jackie Sena MD LAB BLOOD ORDERABLES Ed ited Result - Final [facility] [address] [place] [address], [place] [phone] * Complete blood count (06/10/2024 10:57 AM EST) WBC 6.5 4.8 - 10.8 K/mcL LAB HEMETOLOGY METHOD 06/10/2024 2:32 PM [facility] RBC 4.60 4.50 - 5.50 M/mcL LAB HEMETOLOGY METHOD 06/10/2024 2:32 PM [facility] Hemoglobin 13.8 13.5 - 17.5 g/dL LAB HEMETOLOGY METHOD 06/10/2024 2:32 PM [facility] Hematocrit 42.2 42.0 - 54.0 % LAB HEMETOLOGY METHOD 06/10/2024 2:32 PM [facility] MCV 92.5 79.0 - 98.0 FL LAB HEMETOLOGY METHOD 06/10/2024 2:32 PM [facility] MCH 30.3 27.0 - 32.0 pcg LAB HEMETOLOGY METHOD 06/10/2024 2:32 PM [facility] MCHC 32.7 32.0 - 37.0 g/dL LAB HEMETOLOGY METHOD 06/10/2024 2:32 PM [facility] RDW 12.3 11.0 - 15.0 % LAB HEMETOLOGY METHOD 06/10/2024 2:32 PM [facility] Platelets 286 130 - 400 K/mcL LAB HEMETOLOGY METHOD 06/10/2024 2:32 PM [facility] MPV 9.8 7.0 - 11.0 FL LAB HEMETOLOGY METHOD 06/10/2024 2:32 PM [facility] NRBC 0.0 <1.0 % LAB HEMETOLOGY METHOD 06/10/2024 2:32 PM [facility] NRBC Absolute 0.00 <0.10 K/mcL LAB HEMETOLOGY METHOD 06/10/2024 2:32 PM [facility] Blood Venous blood specimen / Unknown 06/10/2024 10:57 AM EST 06/10/2024 2:22 PM EST us Jackie Sena MD LAB BLOOD ORDERABLES Fi nal Result [facility] [address] [place] [address], documented in this encounter Visit Diagnoses Diagnosis Opioid dependence, uncomplicated (CMS/HCC) documented in this encounter
--- OUTSIDE RECORDS SUMMARY | 2024-09-15 19:38 | XMS_ITS | Encounter Summary ---
Author Organization [employer] [facility] Address [address] [place] [address] Care Team Providers Care Legal Support Manager Name Role Phone Unavailable Primary Care Provider Unavailabl e Encounter Details Date Type Department Care Team (Late st Contact Info) Description 06/09/[address] [facility] - Main Lab [address] [place] [address] Jackie Sena MD [address] [place], [place] [id number] Opioid dependence, uncomplicated (CMS/HCC) Social History Tobacco [...] MOLECULAR DIAGNOSTICS METHOD 06/10/2024 9:52 AM EST [facility] Chlamydia trachomatis PCR Negative Negative LAB MOLECULAR DIAGNOSTICS METHOD 06/10/2024 9:52 AM EST [facility] Swab Urine specimen from urethra / Unknown 06/09/2024 8:14 AM EST 06/09/2024 2:10 PM EST us Jackie Sena MD LAB MICROBIOLOGY - GENE RAL ORDERABLES Final Result [facility] [address] [place] [address], documented in this encounter Visit Diagnoses Diagnosis Opioid dependence, uncomplicated (CMS/HCC) documented in this encounter
--- OUTSIDE RECORDS SUMMARY | 2024-09-15 19:38 | XMS_ITS | Clinical Summary ---
Author Organization [address] [facility] Address [address] [place] [address] Phone Care Team Providers Care Outside Sales Representative Insurance Name Role Phone Unavailable Primary Care Provider Unavailabl e Social History Tobacco Use Types Packs/Day Years [...] 10:57 AM EST Opioid dependence, uncomplicated (CMS/HCC) from Last 3 Months or Most Recently Relevant to Health Maintenance Results * Hepatitis C antibody (06/10/2024 10:57 AM EST) Hepatitis C Antibody Negative Negative LAB CHEMISTRY METHOD 06/11/2024 1:14 AM EST [facility] Blood Venous blood specimen / Unknown 06/10/2024 10:57 AM EST 06/10/2024 2:22 PM EST us Jackie Sena MD LAB BLOOD ORDERABLES Ed ited Result - Final [facility] [address] [place] [address], * HIV 1,2 antibody, p24 antigen with reflex to differentiation (06/10/2024 10:57 AM EST) HIV Combo AB/AG Negative Negative LAB CHEMISTRY METHOD 06/11/2024 1:14 AM EST [facility] Blood Venous blood specimen / Unknown 06/10/2024 10:57 AM EST 06/10/2024 2:22 PM EST Narrative [facility] - 06/11/2024 1:14 AM EST [...] BLOOD ORDERABLES Ed ited Result - Final [facility] [address] [place] [address], [place] [phone] from Last 3 Months or Most Recently Relevant to Health Maintenance Insurance [facility] Member Subscriber Plan / Payer (Ef fective 2022-Present) Name:Crissy Mendez Relation to Subscriber:Spouse Name:CRISSY MENDEZ Date of :1981 Payer ID:[id number] Group ID:[id number] Type:Not on file Address: [address] [address]
== END 2024-09-15 17:46 | disposition left against medical advice (07) ==
PROVIDERS: Emergency Provider Student in an Organized Health Care Education/Training Program
DX: F41.9 Anxiety disorder, unspecified (principal); F11.20 Opioid dependence, uncomplicated; F17.210 Nicotine dependence, cigarettes, uncomplicated; Z79.899 Other long term (current) drug therapy
CPT/HCPCS: 99281

== ENCOUNTER 2024-10-12 08:56 | Emergency (ER) | payer OTHER, SELFPAY ==
[2024-10-12 09:01] VITALS: BP 131/69; PULSE 69; PULSE 76; RESP 16; TEMP 37.1; O2SAT 97; O2SAT 98; BMI 18.1
--- NOTE | 2024-10-12 09:10 | ED.GENADULT ---
HPI - General Adult General Chief complaint: General Medical Stated complaint: requesting methadone Time Seen by Provider: 10/12/24 09:02 Source: patient, EMS, RN notes reviewed and old records reviewed Mode of arrival: EMS Limitations: no limitations History of Present Illness ED Provider: Johana MENDIOLA narrative: Patient is a 44-year-old male with history of schizoaffective disorder, opioid use disorder on methadone presenting to the ED via EMS requesting methadone. States he missed dose yesterday but was dosed at [facility] the day before. States dose is 85mg. Denies other complaints. complaint: methadone dependence Related Data Home Medications ?Medication ?Instructions ?Recorded ?Confirmed methadone 10 mg/mL oral syringe 85 mg PO DAILY 06/09/22 10/12/24 (FOR ORAL USE ONLY) buspirone 5 mg tablet 5 mg PO BID 01/17/24 01/17/24 melatonin 3 mg tablet 3 mg PO NEEDED PRN Insomnia 01/17/24 01/17/24 trazodone 50 mg tablet 50 mg PO BEDTIME 01/17/24 01/17/24 Previous Rx's ?Medication ?Instructions ?Recorded paliperidone palmitate 156 mg/mL 156 mg IM Q30D #0 mL 06/17/22 intramuscular syringe (Invega Sustenna) Allergies Allergy/AdvReac Type Severity Reaction Status Date / Time lithium Allergy Unknown Unknown Verified 10/12/24 09:02 Review of Systems Review of Systems: As per HPI Yes all other systems are reviewed and are negative Constitutional: Constitutional: Reports as per HPI PMFSH Past Medical History Medical History Depression Social History Social History Household Members: Other Household Members Other:: Step Father Housing: Apartment Do you presently have visiting nurse or other home services: No Alcohol intake: current Alcohol intake frequency: holidays/special occasions only Patient Tobacco Use Status: Current everyday Tobacco user Tobacco use type: Cigarette Cigarette Packs Per Day: 1 Cigarettes Per Day: 20.0 Years Smoked: 15 e-Cigarette/Vaping Use: Currently Using Second Hand Smoke Exposure: No Substance Use Type: Crack/Cocaine, Heroin and Opiates Advance Directives: No Advance Directives Information Provided: Yes service: No Sexual orientation: Don't Know Physical Exam ED Vital Signs: Vital Signs - 24 hr 10/12/24 09:01 Temperature 98.7 F Pulse Rate 76 Respiratory Rate 16 Blood Pressure 131/69 Pulse Oximetry 97 Oxygen Delivery Method Room Air BMI result Body Mass Index 18.1 Vital signs have been reviewed and appear to be correct. Blood pressure normal. Heart rate normal. Respiratory rate normal. Temperature normal. Oxygen saturation normal. Const General: cooperative and no acute distress Orientation/consciousness: oriented to person, oriented to place, oriented to time and patient oriented x3 Limitations: no limitations HENMT Head: Yes normocephalic and Yes atraumatic Ears: external ears normal General nose exam: Normal external nose present Face and sinus: Yes face symmetric Mouth: oropharynx normal and moist mucous membranes Throat: Yes uvula midline Eyes Pupils: Equal, round and reactive pupils present Neck Neck: Yes normal visual inspection and Yes supple Resp Effort & Inspection: normal respiratory effort and able to speak in complete sentences Auscultation: clear to auscultation bilaterally Cardio Rate: regular rate Rhythm: regular rhythm Heart sounds: S1 normal heart sound present and S2 normal heart sound present GI Palpation (GI): Soft to palpation and nontender Auscultation: normoactive bowel sounds General: Yes no CVA tenderness Back/Spine/Pelvis Back: no CVA tenderness Skin General skin exam: elasticity normal and turgor normal Neuro General: oriented to person, oriented to place, oriented to time, patient oriented x3, moves all extremities, no focal motor deficits and CN's II-XI intact bilaterally Cranial nerves: Yes Equal, round and reactive pupils present Cognition (Neuro): normal cognition Extrem General: Yes full ROM, Yes no pedal edema and Yes no calf tenderness Psych Mental Status: mental status grossly normal Affect: normal affect Thought process: Normal thought process present Medical Decision Making Medical Decision Making MDM Narrative: Patient is a 44-year-old male with history of schizoaffective disorder, opioid use disorder on methadone presenting to the ED via EMS requesting methadone. On exam patient is awake, A+Ox3, VS WNL, afebrile, normal neurological exam without focal deficits, physical exam findings as above. Given reported symptoms and physical exam findings, initial differential includes but is not limited to methadone dependence. RN verified dose with clinic and methadone ordered. Patient became upset, stated that it was taking too long for him to be medicated and walked out of the ED. Differential Diagnosis Differential Diagnoses: The differential diagnosis associated with the presentation includes As per [facility] External Record Review External record reviewed: Inpatient record, Office record and Outpatient record Discharge Plan Discharge Clinical Impression: Methadone dependence Patient Disposition: Left W/O Completing Treatment Additional Instructions: Opiate use disorder You were seen in our Emergency Department today for treatment of opiate use disorder. You may have been dosed with medication for opiate use disorder (MOUD) in the form of suboxone or methadone. You may experience feeling some withdrawal symptoms and this is normal. The? dose in the Emergency Department is a starting dose and meant to be titrated up once you follow up with a clinic. Please do not feel discouraged, it is a process. The nurse has reviewed with you where to follow up and what information to bring with you, to continue treatment. You also may have been given naloxone (narcan) to take home with you. This medication is used to potentially treat opiate overdose. If you decide you want to stop or cut down on how much you?re using, you can call or walk into our outpatient Addiction Treatment office: [facility] (M-F 9am-5p) [address] [place] [address], [address] You may have been provided with safer injection?items, please take time to take care of YOU and your health. Use new supplies whenever possible to lessen the chances of infections and other illnesses.? ?If you need more supplies, please go [facility],? [address] [place] [address] OR you can call or text to coordinate delivery of safer supplies. You were also provided a list of several treatment providers in the area.? If you experience any worsening symptoms you cannot control please return to the ED or call 911. Please follow up at your next appointment. Things to look out for are fevers, chest pain, shortness of breath, severe pain, dizziness, fainting or any other concerns. Prescriptions: No Action methadone 10 mg/mL Syringe 118 mg PO DAILY Rx Instructions: Confirmed with Tricia PORRAS at [facility]. LD was on 03/30/23 at 118mg's @ 1156 Invega Sustenna 156 mg/mL Syringe 156 mg IM Q30D Qty: 0 0RF Rx Instructions: per pt due 02/14/24 buspirone 5 mg tablet 5 mg PO BID trazodone 50 mg tablet 50 mg PO BEDTIME melatonin 3 mg tablet 3 mg PO NEEDED PRN (Reason: Insomnia) Print Language: Kiswahili
--- NOTE | 2024-10-12 10:00 | HE.PHANOTE ---
RE Methadone Recieved verification from nursing, patient gets 85mg methadone from [facility], last dosed 10/10/24 @1129
[2024-10-12 10:01] VITALS: BP 131/69; PULSE 76; RESP 16; TEMP 37.1; O2SAT 97
--- NOTE | 2024-10-12 10:01 | PC.NURSE ---
pt left department without methadone dose. he left without completing treatment
== END 2024-10-12 10:02 | disposition left against medical advice (07) ==
PROVIDERS: Emergency Provider Emergency Medicine
DX: F11.20 Opioid dependence, uncomplicated (principal); F25.1 Schizoaffective disorder, depressive type; F17.210 Nicotine dependence, cigarettes, uncomplicated; Z79.899 Other long term (current) drug therapy
CPT/HCPCS: 99282; 99283

== ENCOUNTER 2024-12-08 05:42 | Emergency (ER) | payer OTHER, SELFPAY ==
[2024-12-08 06:02] VITALS: BP 130/74; PULSE 73; PULSE 80; RESP 17; TEMP 36.9; O2SAT 100; BMI 21.9
--- NOTE | 2024-12-08 06:03 | ED_ITS ---
HPI - Psych General Chief Complaint: Psychiatric Symptoms Stated Complaint: SI, pt stated I want a car to run over me Time Seen by Provider: 12/08/24 05:58 Source: patient and EMS Mode of arrival: EMS Limitations: no limitations History of Present Illness ED Provider: Dr. Kaylyn De La Rosa HPI Narrative: Patient comes to the emergency room via ambulance. According to EMS, the patient was found in the middle of the road by a neighbor, who called PD. Seems that the patient told to PD that he went to be ran over by a car. However, patient states that he is here because his family members in his house do not like him, they want him out of the house. Patient states that he has completed treatment under a section 35 and is doing well. Patient states that he dislikes his family and states that once he gets discharged, he will not return home, wants to go to a fdc because he can not stand them. Patient comes in on a Section 12 Related Data Home Medications ?Medication ?Instructions ?Recorded ?Confirmed methadone 10 mg/mL oral syringe 85 mg PO DAILY 06/09/22 12/08/24 (FOR ORAL USE ONLY) buspirone 5 mg tablet 5 mg PO BID 01/17/24 01/17/24 melatonin 3 mg tablet 3 mg PO NEEDED PRN Insomnia 01/17/24 01/17/24 trazodone 50 mg tablet 50 mg PO BEDTIME 01/17/24 01/17/24 Previous Rx's ?Medication ?Instructions ?Recorded paliperidone palmitate 156 mg/mL 156 mg IM Q30D #0 mL 06/17/22 intramuscular syringe (Invega Sustenna) Allergies Allergy/AdvReac Type Severity Reaction Status Date / Time lithium Allergy Unknown Rash Verified 12/08/24 06:05 Review of Systems 2 Review of Systems: Constitutional : No Weight loss, No Fever, No Chills, No Night Sweats, No Fatigue, No Malaise ENT/Mouth : No Hearing loss, No Ear Pain, No Nasal Congestion, No Sinus Pain, No Hoarseness, No sore throat, No Rhinorrhea, No Swallowing Difficulty Eyes: No Eye Pain, No Swelling, No Redness, No Foreign Body, No Discharge, No Vision Changes Cardiovascular : No Chest Pain, No SOB, No Dyspnea on Exertion, No Orthopnea, No Edema, No Palpitations Respiratory : No Cough, No Sputum, No Wheezing, No Smoke Exposure, No Dyspnea Gastrointestinal : No Nausea, No Vomiting, No Diarrhea, No Constipation, No abdominal Pain, No Hematochezia, No Melena Genitourinary : no irregular bleeding, No Dysuria, No Urinary Frequency, No Hematuria, No Urinary Incontinence, No Urgency, No Flank Pain, No Urinary Flow Changes, No Hesitancy Musculoskeletal : No joint pain, No Myalgias, No Joint Swelling Skin : No Skin Lesions, No rash Neuro : No Weakness, No Numbness, No Paresthesias, No Loss of Consciousness, No Dizziness, No Headache Psych : Complaining of anxiety and depression. Here patient states that he is not SI or HI. However, earlier today PD reported that they picked him up from the middle of the street, patient was saying that he wanted to be ran over by a car. Heme/Lymph: No Bruising, No Bleeding,No Lymphadenopathy Endocrine : No Polyuria, No Polydipsia, No Temperature Intolerance PMFSH Past Medical History Medical History Schizoaffective disorder, depressive type Opioid use disorder, moderate, dependence Depression Social History Social History Household Members: Other Household Members Other:: Step Father Housing: Apartment Do you presently have visiting nurse or other home services: No Alcohol intake: current Alcohol intake frequency: does not drink Patient Tobacco Use Status: Current everyday Tobacco user Tobacco use type: Cigarette Cigarette Packs Per Day: 1 Cigarettes Per Day: 20.0 Years Smoked: 15 Smoked in Last 30 Days: Yes e-Cigarette/Vaping Use: Currently Using Second Hand Smoke Exposure: No Use of substances other than those prescribed or required for medical reasons: No Substance Use Type: Crack/Cocaine, Heroin and Opiates Advance Directives: No Advance Directives Information Provided: Yes Do you have a plan to hurt others: No Plan service: No Sexual orientation: Don't Know Physical Exam 2 Vital Signs: Vital Signs: Last Vital Signs Temp 99.0 F 12/08/24 09:10 Pulse 75 12/08/24 09:10 Resp 16 12/08/24 09:10 BP 110/53 L 12/08/24 09:10 Pulse Ox 98 12/08/24 09:10 O2 Del Method Room Air 12/08/24 09:10 BMI result Body Mass Index 21.9 Const: Other: Appearance: Alert. Oriented X3. No acute distress. Eyes: Pupils equal, round and reactive to light. ENT: Pharynx normal. Neck: Normal inspection. Neck supple. No lymph nodes noted. No crepitus CVS: Normal heart rate and rhythm. Pulses normal. Normal S1 and S2 Respiratory: No respiratory distress. Breath sounds normal. No Wheezing. No rales Abdomen: Soft and nontender. No rigidity. No distention. Skin: Skin warm and dry. Normal skin color. Normal skin turgor. Extremities: No lower extremity edema. No Lacerations. No Rash Neuro: Oriented X 3. No motor deficit. No sensory deficit. Moving all extremities. No slurred speech. CN 2 through 12 grossly intact Psych: calm, cooperative, seems a bit hyperverbal Course Course Course Narrative: All of patient's labs pending Patient is on a Section 12 Care team consult pending Physician observation started at 06:05 Reevaluation(s) Reevaluation #1: Time: 07:06 Date: 12/08/24 Provider: Kristin Weems DO Patient in physician observation for psychiatric evaluation.? No acute events reported overnight. No current complaints. VS stable.? S12/pending CARE team evaluation. Will continue to monitor. Reevaluation #2: Time: 11:44 Date: 12/08/24 Provider: Kristin Weems DO Physician observation ended at 1144am. Patient has been cleared for discharge by the CARE team. Will follow up as an outpatient. Declines substance abuse help Medications Administered Discontinued Medications Generic Name Dose Route Start Last Admin Trade Name Markq PRN Reason Stop Dose Admin Methadone HCl 85 mg 12/08/24 07:20 12/08/24 09:09 Methadone Hcl 20 Mg/2 Ml Oral.Conc PO 12/08/24 07:21 85 mg ONCE ONE Administration Medical Decision Making Medical Decision Making [facility] Narrative: My interpretation of labs: No significant abnormality in patient's hematology and chemistry, toxicology positive for methadone and cocaine, negative for alcohol Differential Diagnosis Differential Diagnoses: The differential diagnosis associated with the presentation includes (Anxiety, depression, polysubstance abuse, schizoaffective disorder) Admission/Observation Consideration of admission/observation: Escalation of care including admission/observation considered (Patient is on a Section 12 waiting to be seen by the care team to determine patient's disposition) Lab Data 12/08/24 06:18 12/08/24 06:18 Labs: Lab Results 12/08/24 Range/Units 06:18 WBC 6.9 (4.8-10.8) X10*3/uL RBC 4.30 L (4.60-5.80) X10*6/uL Hgb 12.7 L (14.0-18.0) g/dl Hct 38.3 L (42.0-52.0) % MCV 89.1 (80.0-98.0) fL MCH 29.5 (27.0-33.0) pg MCHC 33.2 (31.0-36.0) g/dl RDW 14.6 (11.0-16.0) % Plt Count 281 D (160-400) X10*3/uL MPV 9.1 L (9.4-12.4) fL Immature Gran % (Auto) 0.4 (0.0-0.4) % Neut % (Auto) 73.5 H (45-73) % Lymph % (Auto) 17.0 L (20-40) % Kidder % (Auto) 5.3 (2-11) % Eos % (Auto) 3.2 (0-4) % Baso % (Auto) 0.6 (0-2) % Lymph # (Auto) 1.2 (1.2-4.9) X10*3/uL Kidder # (Auto) 0.4 (0.1-1.2) X10*3/uL Eos # (Auto) 0.2 (0.0-0.4) X10*3/uL Baso # (Auto) 0.0 (0.0-0.2) X10*3/uL Abs Immat Gran (auto) 0.03 (0.00-0.03) X10*3/uL Absolute Neuts (auto) 5.1 (2.0-8.3) x10*3/uL Absolute Nucleated RBC 0.000 (0.0-0.012) X10*3/uL Nucleated RBC % (auto) 0.0 (0.0-0.2) /100WBC Sodium 144 (135-145) mmol/L Potassium 4.0 (3.3-5.1) mmol/L Chloride 108 (96-108) mmol/L Carbon Dioxide 26 (22-29) mmol/L Anion Gap 14 (12-20) BUN 12 (9-16) mg/dL Creatinine 0.73 (0.5-1.4) mg/dL Estim Creat Clear Calc 117.1 Estimated GFR > 60 Random Glucose 79 (60-115) mg/dL Calcium 9.7 (8.4-10.2) mg/dL Total Bilirubin 0.2 (0.0-1.0) mg/dL AST 35 (5-37) U/L ALT 20 (0-40) U/L Alkaline Phosphatase 87 (39-117) U/L Total Protein 7.4 (6.5-8.0) g/dL Albumin 4.4 (3.5-5.0) g/dL Urine Opiates Screen Not Detected (Not Detect) Ur Buprenorphine Scrn Not Detected (Not Detect) ng/mL Ur Oxycodone Screen Not Detected (Not Detect) ng/mL Urine Methadone Screen Positive H (Not Detect) ng/mL Urine Fentanyl Screen Not Detected (Not Detect) Ur Barbiturates Screen Not Detected (Not Detect) Ur Phencyclidine Scrn Not Detected (Not Detect) Ur Amphetamines Screen Not Detected (Not Detect) U Benzodiazepines Scrn Not Detected (Not Detect) Urine Cocaine Screen POSITIVE H (Not Detect) U Marijuana (THC) Screen Not Detected (Not Detect) Ethyl Alcohol < 10 mg/dL Discharge Plan Discharge Clinical Impression: Schizoaffective disorder, depressive type Patient Disposition: Home, Self-Care Instructions: Schizoaffective Disorder (ED) Additional Instructions: You were seen in our Emergency Department today for treatment of a behavioral health issue. It is important after your visit that you follow up with either your behavioral health provider or a primary care doctor within 7 days.? If you have trouble finding a therapist you can reach out to [place] [phone] The National Suicide and Crisis Lifeline can be reached 7 days a week 24 hours a day.? Call 988 to speak with someone.? Return for any worsening symptoms or concerns such as thoughts of self harm or harm to others. Please call 911 if you feel your mental health is worsening.? Prescriptions: No Action methadone 10 mg/mL Syringe 85 mg PO DAILY Rx Instructions: Confirmed with Tricia PORRAS at [facility]. LD was on 03/30/23 at 118mg's @ 1156 Invega Sustenna 156 mg/mL Syringe 156 mg IM Q30D Qty: 0 0RF Rx Instructions: per pt due 02/14/24 buspirone 5 mg tablet 5 mg PO BID trazodone 50 mg tablet 50 mg PO BEDTIME melatonin 3 mg tablet 3 mg PO NEEDED PRN (Reason: Insomnia) Interventions: Sanders-Suicide Risk Severity Scale Last Done: 12/08/24 06:10 Print Language: Choose Not To Answer
--- NOTE | 2024-12-08 06:18 | PC.NURSE ---
Pt arrives via EMS on a section 12 calm and cooperative. Stating not wanting to be here and denying SI HI. Pt states being discharged from a section 35 on November 29 and not having any of his medications since December 01, states I missed my injection . Pt reports being on Methadone 85mg from [facility]. Dose to be confirmed. Denies any concerns or complaints at this time. Food and drink provided as requested. Urine and blood sent to the lab. at bedside. Monitoring is ongoing.
[2024-12-08 06:26] LABS: MANUAL DIFF FLAG NO
[2024-12-08 06:27] LABS: Basophils Percent Auto 0.6 % (0-2); Eosinophils Absolute Auto 0.2 X10*3/uL (0.0-0.4); Eosinophils Percent Auto 3.2 % (0-4); Hematocrit 38.3 % (42.0-52.0); Hemoglobin 12.7 g/dl (14.0-18.0); Imm Gran Abs Auto 0.03 X10*3/uL (0.00-0.03); Imm Gran Pct Auto 0.4 % (0.0-0.4); Lymphocytes Absolute Auto 1.2 X10*3/uL (1.2-4.9); Mean Corpuscular HGB Conc 33.2 g/dl (31.0-36.0); Mean Corpuscular Hemoglobin 29.5 pg (27.0-33.0); Mean Corpuscular Volume 89.1 fL (80.0-98.0); Mean Platelet Volume 9.1 fL (9.4-12.4); Monocytes Absolute Auto 0.4 X10*3/uL (0.1-1.2); Monocytes Percent Auto 5.3 % (2-11); Neutrophils Absolute Auto 5.1 x10*3/uL (2.0-8.3); Neutrophils Percent Auto 73.5 % (45-73); Platelet Count 281 X10*3/uL (160-400); Red Cell Distribution Width 14.6 % (11.0-16.0); White Blood Count 6.9 X10*3/uL (4.8-10.8)
--- OUTSIDE RECORDS SUMMARY | 2024-12-08 06:35 | XMS_ITS | Encounter Summary ---
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 Name Role Phone Unavailable Primary Care Provider Unavailabl e Encounter Details Date Type Department Care Team (Late st Contact Info) Description 06/09/2024 Lab Requisition [facility] - Main Lab [address] [place] [address] Jackie Sena MD [address] [place], [place] [id number] Opioid dependence, uncomplicated ([facility] V24, [facility] V28) Social History Tobacco Use Types Packs/Day Years [...] 06/09/2024 8:14 AM EST Opioid dependence, uncomplicated ([facility]) documented in this encounter Results * Chlamydia trachomatis and Neisseria gonorrhoeae molecular study (06/09/2024 8:14 AM EST) Neisseria gonorrhoeae PCR Negative Negative LAB MOLECULAR DIAGNOSTICS METHOD 06/10/2024 9:52 AM EST [facility] Chlamydia trachomatis PCR Negative Negative LAB MOLECULAR DIAGNOSTICS METHOD 06/10/2024 9:52 AM EST [facility] Swab Urine specimen from urethra / Unknown 06/09/2024 8:14 AM EST 06/09/2024 2:10 PM EST us Jackie Sena MD LAB MICROBIOLOGY - GENE RAL ORDERABLES Final Result [facility] ([facility]) [facility] [address] [place] [address], [place] [phone] documented in this encounter Visit Diagnoses Diagnosis Opioid dependence, uncomplicated (CMS/HCC V24, CMS/HCC V28) documented in this encounter
--- OUTSIDE RECORDS SUMMARY | 2024-12-08 06:35 | XMS_ITS | Encounter Summary ---
Author Organization [facility] Address [address] [place] [address] Care Team Providers Care Operations Officer Name Role Phone Unavailable Primary Care Provider Unavailabl e Encounter Details Date Type Department Care Team (Late st Contact Info) Description 06/10/2024 Lab Requisition [facility] - Main Lab [address] [facility] [place] [address] Jackie Sena MD [address] [place] [address] Opioid dependence, uncomplicated (CMS/HCC V24, CMS/HCC V28) Social History Tobacco Use Types Packs/Day [...] to confirmation (06/10/2024 10:57 AM EST) Pathologist [facility] Hepatitis B Surface Ag Negative Negative LAB CHEMISTRY METHOD 06/10/2024 6:40 PM EST [facility] Blood Venous blood specimen / Unknown 06/10/2024 10:57 AM EST 06/10/2024 2:22 PM EST Narrative [facility] - 06/10/2024 6:40 PM EST Over the counter supplements containing high doses of biotin may interfere with this assay. ??If interference is suspected, patients shoud be retested after refraining from biotin supplements for 72 hours. us Jackie Sena MD LAB BLOOD ORDERABLES Fi nal Result [facility] [address] [place] [address], * (ABNORMAL) Hepatitis B surface antibody (06/10/2024 10:57 AM EST) Pathologist [facility] Hepatitis B Surface Ab Positive (A) Negative LAB CHEMISTRY METHOD 06/10/2024 6:29 PM EST [facility] Hepatitis B Surface Ab Quantitative 192.9 mIU/mL LAB CHEMISTRY METHOD 06/10/2024 6:29 PM EST [facility] Blood Venous blood specimen / Unknown 06/10/2024 10:57 AM EST 06/10/2024 2:22 PM EST Narrative [facility] - 06/10/2024 6:29 PM EST >=10 mIU/mL is considered to be consistent with immunity. us Jackie Sena MD LAB BLOOD ORDERABLES Fi nal Result Performing Organization Address [facility]/ZIP Co de Phone Number [facility] [address] [place] [address], [place] [phone] * Hepatitis C antibody (06/10/2024 10:57 AM EST) Hepatitis C Antibody Negative Negative LAB CHEMISTRY METHOD 06/11/2024 1:14 AM EST [facility] Blood Venous blood specimen / Unknown 06/10/2024 10:57 AM EST 06/10/2024 2:22 PM EST us Jackie Sena MD LAB BLOOD ORDERABLES Ed ited Result - Final Performing Organization Address [facility] Co de Phone Number [facility] [address] [place] [address], [place] [phone] * Hepatitis A antibody IgM (06/10/2024 10:57 AM EST) Hepatitis A Antibody IgM Negative Negative LAB CHEMISTRY METHOD 06/10/2024 3:46 PM EST [facility] Blood Venous blood specimen / Unknown 06/10/2024 10:57 AM EST 06/10/2024 2:22 PM EST Narrative [facility] - 06/10/2024 3:46 PM EST Over the counter supplements containing high doses of biotin may interfere with this assay. ??If interference is suspected, patients shoud be retested after refraining from biotin supplements for 72 hours. us Jackie Sena MD LAB BLOOD ORDERABLES Fi nal Result [facility] [address] [place] [address], [place] [phone] * HIV 1,2 antibody, p24 antigen with reflex to differentiation (06/10/2024 10:57 AM EST) HIV Combo AB/AG Negative Negative LAB CHEMISTRY METHOD 06/11/2024 1:14 AM EST [facility] Blood Venous blood specimen / Unknown 06/10/2024 10:57 AM EST 06/10/2024 2:22 PM EST Narrative [facility] - 06/11/2024 1:14 AM EST This assay is a 4th generation assay allowing for earlier detection of HIV infection by detecting the presence of the HIV-1 p24 antigen as well as the traditional antibodies to HIV type 1 (including group O) and type 2. ??Use of a 4th generation assay is the current CDC recommendation for HIV screening. Jackie Snea MD LAB BLOOD ORDERABLES Ed ited Result - Final Performing Organization Address [facility]/ZIP Co de Phone Number [facility] [address] [place] [address], [place] [phone] * Hepatitis B core antibody, total (06/10/2024 10:57 AM EST) Hep B Core Total Ab Negative Negative LAB CHEMISTRY METHOD 06/10/2024 3:45 PM EST [facility] Blood Venous blood specimen / Unknown 06/10/2024 10:57 AM EST 06/10/2024 2:22 PM EST Jackie Sena MD LAB BLOOD ORDERABLES Fi nal Result Performing Organization Address City/[facility]/ZIP Co de Phone Number [facility] [address] [place] [address], [place] [phone] * Treponema pallidum antibody with reflex to RPR and particle agglutination (06/10/2024 10:57 AM EST) Pathologist [facility] T. Pallidum Antibodies Negative Negative LAB CHEMISTRY METHOD 06/10/2024 3:[address] [facility] Blood Venous blood specimen / Unknown 06/10/2024 10:57 AM EST 06/10/2024 2:22 PM EST us Jackie Sena MD LAB BLOOD ORDERABLES Fi nal Result [facility] [address] [place] [address], [place] [phone] * Comprehensive metabolic panel (06/10/2024 10:57 AM EST) [facility] Sodium 138 133 - 145 mmol/L LAB CHEMISTRY METHOD 06/11/2024 1:[address] [facility] Potassium 4.5 3.5 - 5.5 mmol/L LAB CHEMISTRY METHOD 06/11/2024 1:[address] [facility] Chloride 106 96 - 110 mmol/L LAB CHEMISTRY METHOD 06/11/2024 1:[address] [facility] CO2 28 21 - 32 mmol/L LAB CHEMISTRY METHOD 06/11/2024 1:[address] [facility] Anion Gap 4 3 - 11 LAB CHEMISTRY METHOD 06/11/2024 1:[address] [facility] Glucose 77 70 - 100 mg/dL LAB CHEMISTRY METHOD 06/11/2024 1:[address] [facility] BUN 12 5 - 25 mg/dL LAB CHEMISTRY METHOD 06/11/2024 1:[address] [facility] Creatinine 0.79 0.70 - 1.30 mg/dL LAB CHEMISTRY METHOD 06/11/2024 1:[address] [facility] eGFR 113 >=60 mL/min/1. 73m2 LAB CHEMISTRY METHOD 06/11/2024 1:[address] [facility] Comment:Calculation based on the??Chronic Kidney Disease Epidemiology Collaboration (CKD-EPI) equation refit??without adjustment for race. BUN/Creatinine Ratio 15.2 LAB CHEMISTRY METHOD 06/11/2024 1:[address] [facility] Calcium 9.6 8.5 - 10.5 mg/dL LAB CHEMISTRY METHOD 06/11/2024 1:[address] [facility] AST (SGOT) 23 10 - 42 unit/L LAB CHEMISTRY METHOD 06/11/2024 1:[address] [facility] ALT (SGPT) 24 10 - 60 unit/L LAB CHEMISTRY METHOD 06/11/2024 1:[address] [facility] Alkaline Phosphatase 71 42 - 121 unit/L LAB CHEMISTRY METHOD 06/11/2024 1:[address] [facility] Total Protein 6.8 6.0 - 8.0 g/dL LAB CHEMISTRY METHOD 06/11/2024 1:[address] [facility] Albumin 3.9 3.2 - 5.0 g/dL LAB CHEMISTRY METHOD 06/11/2024 1:[address] [facility] Total Bilirubin 0.4 0.0 - 1.4 mg/dL LAB CHEMISTRY METHOD 06/11/2024 1:[address] [facility] Blood Venous blood specimen / Unknown 06/10/2024 10:57 AM EST 06/10/2024 2:22 PM EST us Jackie Sena MD LAB BLOOD ORDERABLES Ed ited Result - Final [facility] [address] [place] [address], [place] [phone] * Complete blood count (06/10/2024 10:57 AM EST) [facility] WBC 6.5 4.8 - 10.8 K/Health system LAB HEMETOLOGY METHOD 06/10/2024 2:[address] [facility] RBC 4.60 4.50 - 5.50 M/mcL LAB HEMETOLOGY METHOD 06/10/2024 2:[address] [facility] Hemoglobin 13.8 13.5 - 17.5 g/dL LAB HEMETOLOGY METHOD 06/10/2024 2:[address] [facility] Hematocrit 42.2 42.0 - 54.0 % LAB HEMETOLOGY METHOD 06/10/2024 2:[address] [facility] MCV 92.5 79.0 - 98.0 FL LAB HEMETOLOGY METHOD 06/10/2024 2:[address] [facility] MCH 30.3 27.0 - 32.0 pcg LAB HEMETOLOGY METHOD 06/10/2024 2:[address] [facility] MCHC 32.7 32.0 - 37.0 g/dL LAB HEMETOLOGY METHOD 06/10/2024 2:[address] [facility] RDW 12.3 11.0 - 15.0 % LAB HEMETOLOGY METHOD 06/10/2024 2:[address] [facility] Platelets 286 130 - 400 K/Health system LAB HEMETOLOGY METHOD 06/10/2024 2:[address] [facility] MPV 9.8 7.0 - 11.0 FL LAB HEMETOLOGY METHOD 06/10/2024 2:[address] [facility] NRBC 0.0 <1.0 % LAB HEMETOLOGY METHOD 06/10/2024 2:[address] [facility] NRBC Absolute 0.00 <0.10 K/mcL LAB HEMETOLOGY METHOD 06/10/2024 2:[address] [facility] Blood Venous blood specimen / Unknown 06/10/2024 10:57 AM EST 06/10/2024 2:22 PM EST us Jackie Sena MD LAB BLOOD ORDERABLES Fi nal Result [facility] ([facility]) [facility] [address] [place] [address], documented in this encounter Visit Diagnoses Diagnosis Opioid dependence, uncomplicated (CMS/HCC V24, CMS/HCC V28) documented in this encounter
[2024-12-08 06:44] LABS: Amphetamine Screen Urine Not Detected (Not Detect); Barbiturates, Urine Not Detected (Not Detect); Benzodiazepines Screen Urine Not Detected (Not Detect); Buprenorphine Scr Not Detected (Not Detect); Cannabinoid Screen Urine Not Detected (Not Detect); Cocaine Screen Urine POSITIVE (Not Detect); Fentanyl, urine Not Detected (Not Detect); Methadone Screen, Urine Positive (Not Detect); Opiate Screen Urine Not Detected (Not Detect); Oxycodone Screen Urine Not Detected (Not Detect); Phencyclidine Screen Urine Not Detected (Not Detect)
[2024-12-08 06:48] LABS: Alanine Aminotransferase 20 U/L (0-40); Albumin Level 4.4 g/dL (3.5-5.0); Alkaline Phosphatase 87 U/L (39-117); Anion Gap 14 (12-20); Aspartate Amino Transferase 35 U/L (5-37); Bilirubin Total 0.2 mg/dL (0.0-1.0); Blood Urea Nitrogen 12 mg/dL (9-16); Calcium 9.7 mg/dL (8.4-10.2); Carbon Dioxide 26 mmol/L (22-29); Chloride 108 mmol/L (96-108); Creatinine Clr Calc Pharmacy 117.1; Estimated Glomerular Filt Rate > 60; Ethanol < 10 mg/dL; Glucose Random 79 mg/dL (60-115); Sodium 144 mmol/L (135-145); Total Protein 7.4 g/dL (6.5-8.0)
--- NOTE | 2024-12-08 07:25 | HE.PHANOTE ---
METHADONE CONFIRMATION SHEET PATIENT TAKES 85 MG FROM [facility] LAST DOSE 12/07 @ 3707
[2024-12-08] MEDS: methADONE HCl 20 MG/2 ML ORAL.CONC 85 MG PO (09:09)
[2024-12-08 09:10] VITALS: BP 110/53; PULSE 75; RESP 16; TEMP 37.2; O2SAT 98
--- NOTE | 2024-12-08 11:11 | PC.NURSE ---
Report received. Taken over care at this time.
[2024-12-08 11:59] VITALS: BP 110/53; PULSE 75; RESP 16; TEMP 36.7; O2SAT 98
[2024-12-08 12:02] VITALS: BP 110/53; PULSE 75; RESP 16; TEMP 36.7; O2SAT 98
--- NOTE | 2024-12-08 12:23 | MHC.CARE ---
Pt was placed on a 7 day alert with [facility]. [facility] crisis will be calling to offer services to pt.
--- NOTE | 2024-12-09 09:08 | PC.NURSE ---
LAST DOSE VERIFIED FOR CODY LUI FROM [facility] , SHE IS LOOKING TO DOSE THE PATIENT THIS AM
== END 2024-12-08 12:03 | disposition home or self-care (01) ==
PROVIDERS: Emergency Provider Emergency Medicine
DX: F25.1 Schizoaffective disorder, depressive type (principal); R45.851 Suicidal ideations; F11.20 Opioid dependence, uncomplicated; Z79.899 Other long term (current) drug therapy
CPT/HCPCS: 36415; 80053; 80307; 85025; 99285; S9485

== ENCOUNTER 2025-01-11 18:00 | Emergency (ER) | payer OTHER, SELFPAY ==
[2025-01-11 18:07] VITALS: BP 127/82; PULSE 86; O2SAT 98
--- NOTE | 2025-01-11 18:18 | PC.NURSE ---
pt noted leaving ED after getting off EMS stretcher prior to triage.
== END 2025-01-11 19:10 | disposition left against medical advice (07) ==
LOC: HO.ED 19:05
PROVIDERS: Emergency Provider Emergency Medicine
DX: M79.605 Pain in left leg (principal)

== ENCOUNTER 2025-01-23 22:27 | Emergency (ER) | payer OTHER, SELFPAY ==
[2025-01-23 22:34] VITALS: BP 109/62; BP 122/90; PULSE 112; PULSE 83; RESP 18; TEMP 36.4; O2SAT 96; O2SAT 97; BMI 20.9
--- NOTE | 2025-01-23 22:42 | MHC.EDTECH ---
PTS BELONGINGS ARE IN THE [place] [facility] 2
--- NOTE | 2025-01-23 23:47 | ED.OVERDOSE ---
HPI - Overdose General Chief Complaint: Overdose Stated Complaint: found over dose narcaned Time Seen by Provider: 01/23/25 23:02 Source: patient, EMS and police Mode of arrival: EMS Limitations: altered mental status History of Present Illness HPI Narrative: 44-year-old male with history of schizoaffective disorder and psoriasis, [place]. Patient was found unresponsive at [facility] next to a bag of drugs. Patient was given internasal Narcan by the police department. Patient does not recall exact events that led to his arrival at the emergency room. He has a small laceration to the left elbow, but is unable to tell me when or how this happened. Admits you've been feeling well prior to this event. No recent illness, including fevers, cough, chest pain, difficulty breathing, abdominal pain, nausea, or vomiting, vowel changes, or urinary complaints. Admits to using what he thought was superman but can't be sure which drug that was. denies alcohol use. MD complaint: accidental overdose Related Data Home Medications ?Medication ?Instructions ?Recorded ?Confirmed methadone 10 mg/mL oral syringe 85 mg PO DAILY 06/09/22 12/08/24 (FOR ORAL USE ONLY) buspirone 5 mg tablet 5 mg PO BID 01/17/24 01/17/24 melatonin 3 mg tablet 3 mg PO NEEDED PRN Insomnia 01/17/24 01/17/24 trazodone 50 mg tablet 50 mg PO BEDTIME 01/17/24 01/17/24 Previous Rx's ?Medication ?Instructions ?Recorded paliperidone palmitate 156 mg/mL 156 mg IM Q30D #0 mL 06/17/22 intramuscular syringe (Invega Sustenna) Allergies Allergy/AdvReac Type Severity Reaction Status Date / Time lithium Allergy Unknown Rash Verified 01/23/25 22:47 Review of Systems Review of Systems: Yes all other systems are reviewed and are negative (as per HPI) [facility] Past Medical History Attestation statement: The following information was validated with the patient. Source: old records reviewed and nursing notes reviewed Medical History Schizoaffective disorder, depressive type Opioid use disorder, moderate, dependence Depression Social History Social History Household Members: Other Household Members Other:: Step Father Housing: Apartment Do you presently have visiting nurse or other home services: No Alcohol intake: current Alcohol intake frequency: does not drink Patient Tobacco Use Status: Current everyday Tobacco user Tobacco use type: Cigarette Cigarette Packs Per Day: 1 Cigarettes Per Day: 20.0 Years Smoked: 15 Smoked in Last 30 Days: Yes e-Cigarette/Vaping Use: Currently Using Second Hand Smoke Exposure: No Use of substances other than those prescribed or required for medical reasons: Yes Substance Use Type: Crack/Cocaine, Heroin and Opiates Advance Directives: No Advance Directives Information Provided: No Do you have a plan to hurt others: No Plan service: No Sexual orientation: Don't Know Physical Exam Vital Signs: Vital Signs: Last Vital Signs Temp 98.2 F 01/24/25 07:32 Pulse 57 01/24/25 07:32 Resp 18 01/24/25 07:32 BP 112/67 01/24/25 07:32 Pulse Ox 98 01/24/25 07:32 O2 Del Method Room Air 01/24/25 07:32 BMI result Body Mass Index 20.9 GENERAL: Unkempt, no acute distress. SKIN: Normal skin color for ethnicity, warm, dry, no rashes noted. HEENT:? Normocephalic, atraumatic, no stridor, posterior oropharynx nonerythematous, dentition intact, EOMI. NECK: Soft, supple, full ROM, midline structures nontender, no step-offs, no deformities, no lymphadenopathy. CHEST: Heart regular rate and rhythm, no murmurs, symmetric chest rise and fall. PULMONARY: Clear to auscultation bilaterally, no labored breathing, no wheezes/rhales/rhonchi. ABDOMINAL: Soft, nondistended, nontender, positive bowel sounds in all quadrants. : Deferred. MUSCULOSKELETAL: Normal tone, full range of motion, no deformities, no peripheral edema. NEURO: Alert and oriented x3, CN II through XII intact, equal strength and sensation bilateral upper and lower extremities, no focal neurologic deficits.? PSYCHIATRIC: Flat affect, poor eye contact, withdrawn Medications Administered Discontinued Medications Generic Name Dose Route Start Last Admin Trade Name Freq PRN Reason Stop Dose Admin Naloxone HCl 8 mg 01/24/25 07:01 01/24/25 07:29 Naloxone Hcl Nasal Take Home 4 Mg [place] NOSTRILALT 01/24/25 07:02 8 mg ONCE ONE Administration Medical Decision Making Medical Decision Making MDM Narrative: Patient presents with a chief complaint of possible accidental overdose. ? Differential diagnosis includes life-threatening toxidrome such as anticholinergic syndrome, serotonin syndrome, sympathomimetic, opioid induced, among others.? Also includes co-ingestions, acidosis, intracranial process such as mass, hemorrhage, or CVA. Patient evaluated to determine if there is adequate GCS to maintain their airway as well as for hemodynamic stability.? Placed on surveillance system monitor for blood pressure, heart rhythm and oxygen levels. Frequent reevaluations to ensure no worsening neurologic or hemodynamic instability. Differential Diagnosis Differential Diagnoses: The differential diagnosis associated with the presentation includes (as above) Admission/Observation Consideration of admission/observation: Escalation of care including admission/observation considered Independent Historian Clinical information obtained from an independent historian. History obtained from or confirmed by: EMS Prescription Management I considered prescription management with: Other (Narcan) Chronic Conditions Patient?s care impacted by: Other (schizoaffective disorder, psoriasis) Social Determinants Patient?s care significantly limited by Social Determinants of Health including: Inadequate housing, Problems related to primary support group and Unemployment Discharge Plan Discharge Clinical Impression: Accidental drug overdose Patient Disposition: Home, Self-Care Instructions: Adult Overdose (ED) Additional Instructions: Overdose You were seen in our Emergency Department for an overdose today. You received narcan in order to reverse the effects of overdose. Narcan only lasts about 45 min to 1 hour in the system. You may have been given narcan to take home with you today, please keep it near you if you are going to use again, so others can use it if needed.? The number one risk for fatal overdose is using alone? [facility] is a 09/02 hotline where you can be on the phone with someone while you use, and they can call for help if they suspect an overdose: [phone] Things to look out for when you leave include severe vomiting or diarrhea, headaches, muscle cramps, fever, coughing, chest pain, or if you feel so short of breath you cannot walk to the bathroom. Please seek care and return any time for worsening symptoms.? You may have been provided with safer injection?items, please take time to take care of YOU and your health. Use new supplies whenever possible to lessen the chances of infections and other illnesses.? If you need more supplies, please go [facility],? [address] [place], [place] you can call or text to coordinate delivery of safer supplies. If you decide you want to stop or cut down on how much you?re using, please call the numbers on the list provided to you or you can come to our outpatient Addiction Treatment office [facility] (M-F 9am-5p) [address] [place] [address], [address] [place], [place]. [phone] Prescriptions: No Action methadone 10 mg/mL Syringe 85 mg PO DAILY Rx Instructions: Confirmed with Tricia PORRAS at [facility]. LD was on 03/30/23 at 118mg's @ 1156 Invega Sustenna 156 mg/mL Syringe 156 mg IM Q30D Qty: 0 0RF Rx Instructions: per pt due 02/14/24 buspirone 5 mg tablet 5 mg PO BID trazodone 50 mg tablet 50 mg PO BEDTIME melatonin 3 mg tablet 3 mg PO NEEDED PRN (Reason: Insomnia) Interventions: ED Discharge Assessment Last Done: 01/24/25 07:32 Discharge Date/Time: 01/24/25 07:33 Print Language: Gibraltarian
[2025-01-24 01:26] VITALS: BP 104/52; PULSE 70; RESP 14; TEMP 36.8; O2SAT 97
[2025-01-24 07:25] VITALS: BP 112/67; PULSE 57; RESP 18; TEMP 36.8; O2SAT 98
[2025-01-24] MEDS: Naloxone HCl Nasal TAKE HOME 4 MG SPRAY 8 MG NOSTRILALT (07:29)
[2025-01-24 07:32] VITALS: BP 112/67; PULSE 57; RESP 18; TEMP 36.8; O2SAT 98
== END 2025-01-24 07:33 | disposition home or self-care (01) ==
PROVIDERS: Emergency Provider Emergency Medicine
DX: T50.901A Poisoning by unspecified drugs, medicaments and biological substances, accidental (unintentional), initial encounter (principal); Y92.9 Unspecified place or not applicable; S51.012A Laceration without foreign body of left elbow, initial encounter; F14.10 Cocaine abuse, uncomplicated; X58.XXXA Exposure to other specified factors, initial encounter; Y93.9 Activity, unspecified; Z79.899 Other long term (current) drug therapy; Y99.8 Other external cause status; F17.210 Nicotine dependence, cigarettes, uncomplicated; F11.10 Opioid abuse, uncomplicated; Z71.51 Drug abuse counseling and surveillance of drug abuser
CPT/HCPCS: 99284

== ENCOUNTER 2025-03-07 08:44 | Emergency (ER) | payer OTHER, SELFPAY ==
[2025-03-07 08:56] VITALS: BP 126/88; PULSE 88; O2SAT 98
--- OUTSIDE RECORDS SUMMARY | 2025-03-07 10:03 | XMS_ITS | Clinical Summary ---
Author Organization [address] [facility] Address [address] [place] [address] Phone Care Team Providers Care Passenger Attendant Name Role Phone Physician, Pcp Unknown Primary Care Provider Margarita vailable Allergies Active Allergy Reactions Criticality Noted Date Comments [place] 01/12/2025 Medications No known medications Encounters Date Type Department Care Team Description 01/12/2025 3:32 PM EDT - 01/12/2025 3:57 PM EDT Emergency [facility] Emergency [address] [place] [address] Contusion of right thigh, initial encounter (Primary Dx) Discharge Disposition: Home or Self Care from Last 3 Months Social History Tobacco Use Types Packs/Day Years Used Date Smoking Tobacco: Never Assessed Sex and Gender Information Value Date Recorded Sex Assigned at Not on file Legal Sex Male 3:59 PM EST Gender Identity Not on file Sexual Orientation Not on file Obstetrics History Last Filed Vital Signs Vital Sign Reading Time Taken Comments Blood Pressure 104/81 01/12/2025 1:46 PM EDT Pulse 78 01/12/2025 1:46 PM EDT Temperature 36.4 C (97.5 F) 01/12/2025 1:46 PM EDT Respiratory Rate 18 01/12/2025 1:46 PM EDT Oxygen Saturation 98% 01/12/2025 3:32 PM EDT Inhaled Oxygen Concentration - - Weight 72.6 kg (160 lb) 01/12/2025 1:46 PM EDT Height 180.3 cm (5' 11 ) 01/12/2025 1:46 PM EDT Body Mass Index 22.32 01/12/2025 1:46 PM EDT Plan of Treatment Health Maintenance Due Date Last Done Comments Hepatitis A Vaccines (1 of 2 - Risk 2-dose series) 02/04/2000 Hepatitis B Vaccines (1 of 3 - 19+ 3-dose series) 02/04/2000 Cholesterol Screening (Lipid Panel) 06/18/2022 Medicare Annual Wellness Visit 06/18/2022 Social Influencers of Health Screening 06/18/2022 COVID-19 Vaccine (2 - 2023-2 5 season) 2024 04/15/2022 Depression Screening 07/20/2024 Influenza Vaccine (#1) 2025 , 06/10/2022, 05/03/2017 DTaP,Tdap,and Td Vaccines (2 - Td or Tdap) 08/01/2032 08/01/2022 HIV Screening Completed 06/10/2024 Hepatitis C Screening [...] age to complete this topic Meningococcal B Vaccine Aged Out No l onger eligible based on patient's age to complete this topic Pneumococcal Vaccine: Pediatrics (0 to 5 Years) and At-Risk Patients (6 to 49 Years) Aged Out No longer eligible b ased on patient's age to complete this topic RSV Immunization Patients Under 20 months Aged Out No longer eligible b ased on patient's age to complete this topic Varicella Vaccines Aged Out No longer eligible based on patient's age to complete this topic Procedures Procedure Name Priority Date/Time Associated Diagnosis Comments XR FEMUR 2+ VIEWS RIGHT STAT 01/13/20 25 2:06 PM EDT HEPATITIS C ANTIBODY Routine 06/10/2024 10:57 AM EST Opioid dependence, uncomplicated (CMS/HCC) HIV 1, 2 ANTIBODY, P24 ANTIGEN WITH REFLEX TO DIFFERENTIATION Routine 06/10/2024 10:57 AM EST Opioid dependence, uncomplicated (CMS/HCC) from Last 3 Months or Most Recently Relevant to Health Maintenance Results * XR Femur 2+ Views Right (01/12/2025 2:06 PM EDT) Anatomical Region Laterality Modality Lower Extremities, Femur Right Radiogr aphic Imaging 01/12/2025 2:29 PM EDT Impressions 01/12/2025 2:30 PM EDT FINDINGS/IMPRESSION: Degenerative changes of the hip and knee. No acute fracture. Normal alignment. -------- FINAL REPORT -------- Dictated By: Esthela Garcia Dictated Date: 01/12/2025 14:29 ET Assigned Physician: Esthela Garcia Reviewed and Electronically Signed By: Esthela Garcia Signed Date: 01/12/2025 14:30 ET Workstation ID: [id number] Transcribed By: Self Edit Transcribed Date: 01/12/2025 14:29 ET Narrative 01/12/2025 2:30 PM EDT XR FEMUR 2+ VIEWS RIGHT INDICATION: pain TECHNIQUE: XR FEMUR 2+ VIEWS RIGHT COMPARISON: No priors available. Procedure Note Esthela Garcia MD - 01/12/2025 XR FEMUR 2+ VIEWS RIGHT INDICATION: pain TECHNIQUE: XR FEMUR 2+ VIEWS RIGHT COMPARISON: No priors available. IMPRESSION: FINDINGS/IMPRESSION: Degenerative changes of the hip and knee. No acutefracture. Normal alignment. -------- FINAL REPORT -------- Dictated By: Esthela Garcia Dictated Date: 01/12/2025 14:29 ET Assigned Physician: Esthela Garcia Reviewed and Electronically Signed By: Esthela Garcia Signed Date: 01/12/2025 14:30 ET Workstation ID: [id number] Transcribed By: Self Edit Transcribed Date: 01/12/2025 14:29 ET us Lázaro Sewell DO IMG XR PROCEDURES Final Res ult * Hepatitis C antibody (06/10/2024 10:57 AM EST) Hepatitis C Antibody Negative Negative LAB CHEMISTRY METHOD 06/11/2024 1:14 AM EST [facility] Blood Venous blood specimen / Unknown 06/10/2024 10:57 AM EST 06/10/2024 2:22 PM EST Jackie Sena MD LAB BLOOD ORDERABLES Ed ited Result - Final Performing Organization Address [facility]/ZIP Co de Phone Number [facility] [address] [place] [address], [place] [phone] * HIV 1,2 antibody, p24 antigen with reflex to differentiation (06/10/2024 10:57 AM EST) [facility] HIV Combo AB/AG Negative Negative LAB CHEMISTRY METHOD 06/11/2024 1:14 AM EST [facility] Blood Venous blood specimen / Unknown 06/10/2024 10:57 AM EST 06/10/2024 2:22 PM EST Narrative [facility] - 06/11/2024 1:14 AM EST This assay is a 4th generation assay allowing for earlier detection of HIV infection by detecting the presence of the HIV-1 p24 antigen as well as the traditional antibodies to HIV type 1 (including group O) and type 2. Use of a 4th generation assay is the current CDC recommendation for HIV screening. Jackie Sena MD LAB BLOOD ORDERABLES Ed ited Result - Final Performing Organization Address [facility] de Phone Number [facility] [address] [place] [address], [place] [phone] from Last 3 Months or Most Recently Relevant to Health Maintenance Insurance [facility] MEDICARE Member Subscriber Plan / Payer (Ef fective 2022-Present) Name:Harsha Mendez Relation to Subscriber:Self Name:Harsha Mendez Payer ID:[id number] Group ID:Not on file Type:Not on file Address: [address] [place] [address] Care Teams Passenger Attendant Relationship Specialty Start Date End Date Physician, Pcp Unknown PCP - General 01/12/25
== END 2025-03-07 09:24 | disposition left against medical advice (07) ==
LOC: HO.ED 09:08
PROVIDERS: Emergency Provider Emergency Medicine
DX: F11.20 Opioid dependence, uncomplicated (principal); Z53.21 Procedure and treatment not carried out due to patient leaving prior to being seen by health care provider

== ENCOUNTER 2025-03-20 07:07 | Emergency (ER) | payer OTHER, SELFPAY ==
--- OUTSIDE RECORDS SUMMARY | 2025-03-20 07:21 | XMS_ITS | Clinical Summary ---
Author Organization [address] [facility] Address [address] [place] [address] Phone Care Team Providers Care Ct Technologist Name Role Phone Physician, Pcp Unknown Primary Care Provider Margarita vailable Allergies Active Allergy Reactions Criticality Noted Date Comments [place] 01/12/2025 Medications No known medications Encounters Date Type Department Care Team Description 01/12/2025 3:32 PM EDT - 01/12/2025 3:57 PM EDT Emergency [facility] Emergency [address] [place] [address] Contusion of right thigh, initial [...] Dictated Date: 01/12/2025 14:29 ET Assigned Physician: Estheal Garcia Reviewed and Electronically Signed By: Esthela Garcia Signed Date: 01/12/2025 14:30 ET Workstation ID: [id number] Transcribed By: Self Edit Transcribed Date: 01/12/2025 [...] Signed Date: 01/12/2025 14:30 ET Workstation ID: [id number] Transcribed By: Self Edit Transcribed Date: 01/12/2025 14:29 ET us Lázaro Sewell DO IMG XR PROCEDURES Final Res ult * Hepatitis C antibody (06/10/2024 10:57 AM EST) Hepatitis C Antibody Negative Negative LAB CHEMISTRY METHOD 06/11/2024 1:14 AM EST [facility] Blood Venous blood specimen / Unknown 06/10/2024 10:57 AM EST 06/10/2024 2:22 PM EST Jackie Sena MD LAB BLOOD ORDERABLES Ed ited Result - Final Performing Organization Address [facility]/ZIP Co de Phone Number [facility] [address] [place] [address], [place] [phone] * HIV 1,2 antibody, p24 antigen with reflex to differentiation (06/10/2024 10:57 AM EST) [facility] HIV Combo AB/AG Negative Negative LAB CHEMISTRY METHOD 06/11/2024 1:14 AM EST [facility] Blood Venous blood specimen / Unknown 06/10/2024 10:57 AM EST 06/10/2024 2:22 PM EST Narrative [facility] - 06/11/2024 1:14 AM EST [...] ited Result - Final Performing Organization Address [facility] de Phone Number [facility] [address] [place] [address], [place] [phone] from Last 3 Months or Most Recently Relevant to Health Maintenance Insurance [facility] MEDICARE Member Subscriber Plan / Payer (Ef fective 2022-Present) Name:Harsha Mendez Relation to Subscriber:Self Name:Harsha Mendez Payer ID:[id number] Group ID:Not on file Type:Not on file Address: [address] [place] [address] Technologist Relationship Specialty Start Date End Date Physician, Pcp Unknown PCP - General 01/12/25
--- OUTSIDE RECORDS SUMMARY | 2025-03-20 07:22 | XMS_ITS | Encounter Summary ---
Author Organization [facility] Address [address] [place] [address] Care Team Providers Care Visualizer Name Role Phone Physician, Pcp Unknown Primary Care Provider Margarita vailable Encounter Details Date Type Department Care Team (Late st Contact Info) Description 06/09/2024 Lab Requisition [facility] [address] [place] [address] Jackie Sena MD [address] [place], [place] [id number] Opioid dependence, uncomplicated (CMS/[facility] V24, CMS/[facility] V28) Social History Tobacco Use Types Packs/Day [...] 06/09/2024 8:14 AM EST Opioid dependence, uncomplicated (CMS/[facility]) documented in this encounter Results * Chlamydia trachomatis and Neisseria gonorrhoeae molecular study (06/09/2024 8:14 AM EST) Neisseria gonorrhoeae PCR Negative Negative LAB MOLECULAR DIAGNOSTICS METHOD 06/10/2024 9:52 AM EST [facility] Chlamydia trachomatis PCR Negative Negative LAB MOLECULAR DIAGNOSTICS METHOD 06/10/2024 9:52 AM EST [facility] Swab Urine specimen from urethra / Unknown 06/09/2024 8:14 AM EST 06/09/2024 2:10 PM EST Jackie Sena MD LAB MICROBIOLOGY - GENE RAL ORDERABLES Final Result [facility] [address] [place] [address], documented in this encounter Visit Diagnoses Diagnosis Opioid dependence, uncomplicated (CMS/HCC V24, CMS/HCC V28) documented in this encounter Care Teams Visualizer Relationship Specialty Start Date End Date Physician, Pcp Unknown PCP - General 01/12/25 documented as of this encounter
--- OUTSIDE RECORDS SUMMARY | 2025-03-20 07:22 | XMS_ITS | Encounter Summary ---
Author Organization [facility] Address [address] [place] [address] Care Team Providers Care Aircraft Metalsmith Name Role Phone Physician, Pcp Unknown Primary Care Provider Margarita vailable Encounter Details Date Type Department Care Team (Late st Contact Info) Description 06/10/2024 Lab Requisition [facility] - Main Lab [address] [facility] [place] [address] Jackie Sena MD [address] [place] [address] Opioid dependence, uncomplicated (CMS/HCC V24, [...] to confirmation (06/10/2024 10:57 AM EST) Pathologist [facility] [place] Hepatitis B Surface Ag Negative Negative LAB CHEMISTRY METHOD 06/10/2024 6:40 PM EST [facility] Blood Venous blood specimen / Unknown 06/10/2024 10:57 AM EST 06/10/2024 2:22 PM EST Narrative [facility] - 06/10/2024 6:40 PM EST Over the counter supplements containing high doses of biotin may interfere with this assay. If interference is suspected, patients shoud be retested after refraining from biotin supplements for 72 hours. us Jackie Sena MD LAB BLOOD ORDERABLES Fi nal Result [facility] [address] [place] [address], * (ABNORMAL) Hepatitis B surface antibody (06/10/2024 10:57 AM EST) Hepatitis B Surface Ab Positive (A) Negative LAB CHEMISTRY METHOD 06/10/2024 6:29 PM EST [facility] Hepatitis B Surface Ab Quantitative 192.9 mIU/mL LAB CHEMISTRY METHOD 06/10/2024 6:29 PM EST [facility] Blood Venous blood specimen / Unknown 06/10/2024 10:57 AM EST 06/10/2024 2:22 PM EST Narrative [facility] - 06/10/2024 6:29 PM EST >=10 mIU/mL is considered to be consistent with immunity. Jackie Sena MD LAB BLOOD ORDERABLES Fi nal Result Performing Organization Address City/[facility]/ZIP Co de Phone Number [facility] [address] [place] [address], [place] [phone] * Hepatitis C antibody (06/10/2024 10:57 AM EST) Hepatitis C Antibody Negative Negative LAB CHEMISTRY METHOD 06/11/2024 1:14 AM EST [facility] Blood Venous blood specimen / Unknown 06/10/2024 10:57 AM EST 06/10/2024 2:22 PM EST Jackie Sena MD LAB BLOOD ORDERABLES Ed ited Result - Final Performing Organization Address [facility]/ZIP Co de Phone Number [facility] [address] [place] [address], [place] [phone] * Hepatitis A antibody IgM (06/10/2024 10:57 AM EST) Hepatitis A Antibody IgM Negative Negative LAB CHEMISTRY METHOD 06/10/2024 3:46 PM EST [facility] Blood Venous blood specimen / Unknown 06/10/2024 10:57 AM EST 06/10/2024 2:22 PM EST Narrative [facility] - 06/10/2024 3:46 PM EST Over the counter supplements containing high doses of biotin may interfere with this assay. If interference is suspected, patients shoud be retested after refraining from biotin supplements for 72 hours. us Jackie Sena MD LAB BLOOD ORDERABLES Fi nal Result Performing Organization Address [facility] Co de Phone Number [facility] [address] [place] [address], * HIV 1,2 antibody, p24 antigen with reflex to differentiation (06/10/2024 10:57 AM EST) HIV Combo AB/AG Negative Negative LAB CHEMISTRY METHOD 06/11/2024 1:14 AM EST [facility] Blood Venous blood specimen / Unknown 06/10/2024 10:57 AM EST 06/10/2024 2:22 PM EST Narrative [facility] - 06/11/2024 1:14 [...] ited Result - Final Performing Organization Address [facility] de Phone Number [facility] [address] [place] [address], * Hepatitis B core antibody, total (06/10/2024 10:57 AM EST) Hep B Core Total Ab Negative Negative LAB CHEMISTRY METHOD 06/10/2024 3:45 PM EST [facility] Blood Venous blood specimen / Unknown 06/10/2024 10:57 AM EST 06/10/2024 2:22 PM EST us Jackie Sena MD LAB BLOOD ORDERABLES Fi nal Result Performing Organization Address [facility] Co de Phone Number [facility] [address] [place] [address], [place] [phone] * Treponema pallidum antibody with reflex to RPR and particle agglutination (06/10/2024 10:57 AM EST) Pathologist [facility] [place] T. Pallidum Antibodies Negative Negative LAB CHEMISTRY METHOD 06/10/2024 3:09 PM EST [facility] Blood Venous blood specimen / Unknown 06/10/2024 10:57 AM EST 06/10/2024 2:22 PM EST Jackie Sena MD LAB BLOOD ORDERABLES Fi nal Result Performing Organization Address [facility]/ZIP Co de Phone Number [facility] [address] [place] [address], [place] [phone] * Comprehensive metabolic panel (06/10/2024 10:57 AM EST) Pathologist [facility] [place] Sodium 138 133 - 145 mmol/L LAB CHEMISTRY METHOD 06/11/2024 1:19 AM [facility] Potassium 4.5 3.5 - 5.5 mmol/L LAB CHEMISTRY METHOD 06/11/2024 1:19 AM [facility] Chloride 106 96 - 110 mmol/L LAB CHEMISTRY METHOD 06/11/2024 1:19 AM [facility] CO2 28 21 - 32 mmol/L LAB CHEMISTRY METHOD 06/11/2024 1:19 AM [facility] Anion Gap 4 3 - 11 LAB CHEMISTRY METHOD 06/11/2024 1:19 AM [facility] Glucose 77 70 - 100 mg/dL LAB CHEMISTRY METHOD 06/11/2024 1:19 AM [facility] BUN 12 5 - 25 mg/dL LAB CHEMISTRY METHOD 06/11/2024 1:19 AM [facility] Creatinine 0.79 0.70 - 1.30 mg/dL LAB CHEMISTRY METHOD 06/11/2024 1:19 AM [facility] eGFR 113 >=60 mL/min/1. 73m2 LAB CHEMISTRY METHOD 06/11/2024 1:19 AM [facility] Comment:Calculation based on the Chronic Kidney Disease Epidemiology Collaboration (CKD-EPI) equation refit without adjustment for race. BUN/Creatinine Ratio 15.2 LAB CHEMISTRY METHOD 06/11/2024 1:19 AM [facility] Calcium 9.6 8.5 - 10.5 mg/dL LAB CHEMISTRY METHOD 06/11/2024 1:19 AM [facility] AST (SGOT) 23 10 - 42 unit/L LAB CHEMISTRY METHOD 06/11/2024 1:19 AM [facility] ALT (SGPT) 24 10 - 60 unit/L LAB CHEMISTRY METHOD 06/11/2024 1:19 AM [facility] Alkaline Phosphatase 71 42 - 121 unit/L LAB CHEMISTRY METHOD 06/11/2024 1:19 AM [facility] Total Protein 6.8 6.0 - 8.0 g/dL LAB CHEMISTRY METHOD 06/11/2024 1:19 AM [facility] Albumin 3.9 3.2 - 5.0 g/dL LAB CHEMISTRY METHOD 06/11/2024 1:19 AM [facility] Total Bilirubin 0.4 0.0 - 1.4 mg/dL LAB CHEMISTRY METHOD 06/11/2024 1:19 AM [facility] Blood Venous blood specimen / Unknown 06/10/2024 10:57 AM EST 06/10/2024 2:22 PM EST us Jackie Sena MD LAB BLOOD ORDERABLES Ed ited Result - Final [facility] [address] [place] [address], * Complete blood count (06/10/2024 10:57 AM EST) [facility] WBC 6.5 4.8 - 10.8 K/mcL LAB HEMETOLOGY METHOD 06/10/2024 2:32 PM EST [facility] RBC 4.60 4.50 - 5.50 M/mcL LAB HEMETOLOGY METHOD 06/10/2024 2:32 PM EST [facility] Hemoglobin 13.8 13.5 - 17.5 g/dL LAB HEMETOLOGY METHOD 06/10/2024 2:32 PM [facility] Hematocrit 42.2 42.0 - 54.0 % LAB HEMETOLOGY METHOD 06/10/2024 2:32 PM [facility] MCV 92.5 79.0 - 98.0 FL LAB HEMETOLOGY METHOD 06/10/2024 2:32 PM [facility] MCH 30.3 27.0 - 32.0 pcg LAB HEMETOLOGY METHOD 06/10/2024 2:32 PM [facility] MCHC 32.7 32.0 - 37.0 g/dL LAB HEMETOLOGY METHOD 06/10/2024 2:32 PM [facility] RDW 12.3 11.0 - 15.0 % LAB HEMETOLOGY METHOD 06/10/2024 2:32 PM [facility] Platelets 286 130 - 400 K/mcL LAB HEMETOLOGY METHOD 06/10/2024 2:32 PM [facility] MPV 9.8 7.0 - 11.0 FL LAB HEMETOLOGY METHOD 06/10/2024 2:32 PM [facility] NRBC 0.0 <1.0 % LAB HEMETOLOGY METHOD 06/10/2024 2:32 PM [facility] NRBC Absolute 0.00 <0.10 K/mcL LAB HEMETOLOGY METHOD 06/10/2024 2:32 PM EST [facility] Blood Venous blood specimen / Unknown 06/10/2024 10:57 AM EST 06/10/2024 2:22 PM EST us Jackie Sena MD LAB BLOOD ORDERABLES Fi nal Result [facility] [address] [place] [address], documented in this encounter Visit Diagnoses Diagnosis Opioid dependence, uncomplicated (CMS/HCC V24, CMS/HCC V28) documented in this encounter Care Teams Aircraft Metalsmith Relationship Specialty Start Date End Date Physician, Pcp Unknown PCP - General 01/12/25 documented as of this encounter
--- NOTE | 2025-03-20 07:38 | PC.NURSE ---
EMS was waiting by nursing station. when this lyric writer asked for report EMS stated that the patient had left. EMS said that the pt got off the EMS stretcher and lef the department. The patient was not assessed, spoken to, or seen by this RN
== END 2025-03-20 07:35 | disposition left against medical advice (07) ==
PROVIDERS: Emergency Provider Emergency Medicine
DX: M54.9 Dorsalgia, unspecified (principal); Z53.21 Procedure and treatment not carried out due to patient leaving prior to being seen by health care provider

== ENCOUNTER 2025-03-26 02:24 | Emergency (ER) | payer OTHER, SELFPAY ==
[2025-03-26 02:38] VITALS: BP 111/56; BP 111/58; PULSE 58; RESP 16; TEMP 36.6; O2SAT 100; O2SAT 99; BMI 19.0
--- NOTE | 2025-03-26 03:35 | ED.GENADULT ---
HPI - General Adult General Chief complaint: Anxiety Stated complaint: Anxious,SOB Time Seen by Provider: 03/26/25 03:23 Source: patient and EMS Mode of arrival: EMS Limitations: no limitations History of Present Illness ED Provider: Dr. Kaylyn De La Rosa HPI narrative: Patient comes to the emergency room via ambulance. According to EMS, the patient was picked up in the streets, patient called because he has been feeling anxious, states that he has not been taking his bipolar medications for 2 weeks, unclear why he stopped taking them. Patient also missed his methadone dose and is requesting to have it this morning. EMS reports that on the right in the ambulance from where he got picked up to the hospital, patient kept masturbating despite EMS attempting to make him stopped. Patient denies SI or HI Related Data Home Medications ?Medication ?Instructions ?Recorded ?Confirmed methadone 10 mg/mL oral syringe 80 mg PO DAILY 06/09/22 03/26/25 (FOR ORAL USE ONLY) baclofen 10 mg tablet 10 mg PO BID 03/26/25 03/26/25 buspirone 5 mg tablet 5 mg PO BID PRN Anxiety 03/26/25 03/26/25 omeprazole 20 mg capsule,delayed 20 mg PO DAILY 03/26/25 03/26/25 release Previous Rx's ?Medication ?Instructions ?Recorded paliperidone palmitate 156 mg/mL 156 mg IM Q30D #0 mL 06/17/22 intramuscular syringe (Invega Sustenna) Allergies Allergy/AdvReac Type Severity Reaction Status Date / Time lithium Allergy Unknown Rash Verified 03/26/25 02:58 Review of Systems Review of Systems: Constitutional : No Weight loss, No Fever, No Chills, No Night Sweats, No Fatigue, No Malaise ENT/Mouth : No Hearing loss, No Ear Pain, No Nasal Congestion, No Sinus Pain, No Hoarseness, No sore throat, No Rhinorrhea, No Swallowing Difficulty Eyes: No Eye Pain, No Swelling, No Redness, No Foreign Body, No Discharge, No Vision Changes Cardiovascular : No Chest Pain, No SOB, No Dyspnea on Exertion, No Orthopnea, No Edema, No Palpitations Respiratory : No Cough, No Sputum, No Wheezing, No Smoke Exposure, No Dyspnea Gastrointestinal : No Nausea, No Vomiting, No Diarrhea, No Constipation, No abdominal Pain, No Hematochezia, No Melena Genitourinary : no irregular bleeding, No Dysuria, No Urinary Frequency, No Hematuria, No Urinary Incontinence, No Urgency, No Flank Pain, No Urinary Flow Changes, No Hesitancy Musculoskeletal : No joint pain, No Myalgias, No Joint Swelling Skin : No Skin Lesions, No rash Neuro : No Weakness, No Numbness, No Paresthesias, No Loss of Consciousness, No Dizziness, No Headache Psych : Complaining of anxiety, denies depression SI or HI, requesting methadone dose Heme/Lymph: No Bruising, No Bleeding,No Lymphadenopathy Endocrine : No Polyuria, No Polydipsia, No Temperature Intolerance [facility] Past Medical History Medical History Schizoaffective disorder, depressive type Opioid use disorder, moderate, dependence Depression Social History Social History Household Members: Other Household Members Other:: Step Father Housing: Apartment Do you presently have visiting nurse or other home services: No Alcohol intake: current Alcohol intake frequency: holidays/special occasions only Patient Tobacco Use Status: Current everyday Tobacco user Tobacco use type: Cigarette Cigarette Packs Per Day: 1 Cigarettes Per Day: 20.0 Years Smoked: 15 Smoked in Last 30 Days: Yes e-Cigarette/Vaping Use: Currently Using Second Hand Smoke Exposure: No Use of substances other than those prescribed or required for medical reasons: Yes Substance Use Type: Crack/Cocaine, Heroin and Opiates Substance Use Frequency: Chronic Longstanding Advance Directives: No Advance Directives Information Provided: Yes Do you have a plan to hurt others: No Plan service: No Sexual orientation: Don't Know Physical Exam ED Exam Exam: Appearance: Alert. Oriented X3. No acute distress. Disheveled Eyes: Pupils equal, round and reactive to light. ENT: Pharynx normal. Facial temporal wasting Neck: Normal inspection. Neck supple. No lymph nodes noted. No crepitus CVS: Normal heart rate and rhythm. Pulses normal. Normal S1 and S2 Respiratory: No respiratory distress. Breath sounds normal. No Wheezing. No rales Abdomen: Soft and nontender. No rigidity. No distention. Skin: Skin warm and dry. Normal skin color. Normal skin turgor. Extremities: No lower extremity edema. No Lacerations. No Rash Neuro: Oriented X 3. No motor deficit. No sensory deficit. Moving all extremities. No slurred speech. CN 2 through 12 grossly intact Psych: calm, cooperative, normal affect Vital Signs: Vital Signs - 24 hr 03/26/25 02:38 03/26/25 07:38 Temperature 97.9 F Pulse Rate 58 56 Respiratory Rate 16 20 Blood Pressure 111/58 L 109/60 Pulse Oximetry 100 Oxygen Delivery Method Room Air BMI result Body Mass Index 19.0 Course Course Course Narrative: Patient is calm, cooperative, has been off his medications for bipolar disorder over 2 weeks. Patient reporting anxiety. Patient agreeable to see the care team All of patient's labs and imaging pending All of patient's vitals stable Reevaluation(s) Reevaluation #1: 7:17 AM 03/26/2025 (Dr. Neftali Roach): Polysubstance positive, notified of increased cows score, methadone not verified yet, reporting nausea, we will give 30 mg of methadone and Zofran Reevaluation #2: Patient will be cleared for discharge.Time: 10:57 Date: 03/26/25 Provider: Neftali Roach, Physician observation ended. Patient has been cleared for discharge by the CARE team. Time: 10:56 Medications Administered Discontinued Medications Generic Name Dose Route Start Last Admin Trade Name Freq PRN Reason Stop Dose Admin Methadone HCl 30 mg 03/26/25 07:18 03/26/25 07:32 Methadone Hcl 20 Mg/2 Ml Oral.Conc PO 03/26/25 07:19 30 mg ONCE ONE Administration Ondansetron HCl 4 mg 03/26/25 07:18 03/26/25 07:23 Ondansetron Odt 4 Mg Tab.Rapdis TRANSLINGU 03/26/25 07:19 4 mg ONCE ONE Administration Medical Decision Making Medical Decision Making [facility] Narrative: My interpretation of labs: No significant acute abnormality in patient's hematology, patient is chronically anemic Follow-up chemistry, urine toxicology Differential Diagnosis Differential Diagnoses: The differential diagnosis associated with the presentation includes (Anxiety, depression, bipolar disorder, medication noncompliance) Admission/Observation Consideration of admission/observation: Escalation of care including admission/observation considered (Patient waiting to be seen by the care team, patient may need inpatient level of care, disposition pending) Lab Data 03/26/25 03:49 09/07/25 03:49 Labs: Lab Results 03/26/25 03/26/25 Range/Units 03:49 04:10 WBC 7.4 (4.8-10.8) X10*3/uL RBC 4.29 L (4.60-5.80) X10*6/uL Hgb 12.8 L (14.0-18.0) g/dl Hct 36.1 L (42.0-52.0) % MCV 84.1 (80.0-98.0) fL MCH 29.8 (27.0-33.0) pg MCHC 35.5 (31.0-36.0) g/dl RDW 13.2 (11.0-16.0) % Plt Count 251 (160-400) X10*3/uL MPV 8.8 L (9.4-12.4) fL Immature Gran % (Auto) 0.1 (0.0-0.4) % Neut % (Auto) 63.4 (45-73) % Lymph % (Auto) 26.6 (20-40) % [place] % (Auto) 6.2 (2-11) % Eos % (Auto) 3.0 (0-4) % Baso % (Auto) 0.7 (0-2) % Lymph # (Auto) 2.0 (1.2-4.9) X10*3/uL [place] # (Auto) 0.5 (0.1-1.2) X10*3/uL Eos # (Auto) 0.2 (0.0-0.4) X10*3/uL Baso # (Auto) 0.1 (0.0-0.2) X10*3/uL Abs Immat Gran (auto) 0.01 (0.00-0.03) X10*3/uL Absolute Neuts (auto) 4.7 (2.0-8.3) x10*3/uL Absolute Nucleated RBC 0.000 (0.0-0.012) X10*3/uL Nucleated RBC % (auto) 0.0 (0.0-0.2) /100WBC Sodium 143 (135-145) mmol/L Potassium 3.8 (3.3-5.1) mmol/L Chloride 107 (96-108) mmol/L Carbon Dioxide 27 (22-29) mmol/L Anion Gap 13 (12-20) BUN 16 (9-16) mg/dL Creatinine 0.67 (0.5-1.4) mg/dL Estim Creat Clear Calc 122.7 Estimated GFR > 60 Random Glucose 113 (60-115) mg/dL Calcium 9.4 (8.4-10.2) mg/dL Total Bilirubin 0.2 (0.0-1.0) mg/dL AST 22 (5-37) U/L ALT 14 (0-40) U/L Alkaline Phosphatase 86 (39-117) U/L Total Protein 6.1 L (6.5-8.0) g/dL Albumin 3.9 (3.5-5.0) g/dL Urine Opiates Screen POSITIVE H (Not Detect) Ur Buprenorphine Scrn Not Detected (Not Detect) ng/mL Ur Oxycodone Screen Not Detected (Not Detect) ng/mL Urine Methadone Screen Not Detected (Not Detect) ng/mL Urine Fentanyl Screen POSITIVE H (Not Detect) Ur Barbiturates Screen Not Detected (Not Detect) Ur Phencyclidine Scrn Not Detected (Not Detect) Ur Amphetamines Screen Not Detected (Not Detect) U Benzodiazepines Scrn Not Detected (Not Detect) Urine Cocaine Screen POSITIVE H (Not Detect) U Marijuana (THC) Screen POSITIVE H (Not Detect) Ethyl Alcohol < 10 mg/dL COVID-19 (TYRONE) Negative (Negative) COVID-19 Clin Com See Note Critical Care Time Critical Care Time Critical Care Time: Yes Total Critical Care Time: 35 Attestation: I have personally provided critical care time. Time includes review of lab data, radiology results, discussion with consultants, and monitoring for potential decompensation. Intervention performed as documented. Discharge Plan Discharge Clinical Impression: Schizoaffective disorder, depressive type, Acute anxiety Patient Disposition: Home, Self-Care Additional Instructions: You were seen in our Emergency Department today for treatment of a behavioral health issue. It is important after your visit that you follow up with either your behavioral health provider or a primary care doctor within 7 days.? If you have trouble finding a therapist you can reach out to [address] [phone] The National Suicide and Crisis Lifeline can be reached 7 days a week 24 hours a day.? Call 8 to speak with someone.? Return for any worsening symptoms or concerns such as thoughts of self harm or harm to others. Please call 911 if you feel your mental health is worsening.? Prescriptions: No Action methadone 10 mg/mL Syringe 80 mg PO DAILY Rx Instructions: Confirmed with Tricia PORRAS at [facility]. LD was on 03/30/23 at 118mg's @ 1156 Invega Sustenna 156 mg/mL Syringe 156 mg IM Q30D Qty: 0 0RF Rx Instructions: per pt due 02/19/25 (missed) buspirone 5 mg tablet 5 mg PO BID PRN (Reason: Anxiety) baclofen 10 mg tablet 10 mg PO BID omeprazole 20 mg capsule,delayed release(DR/EC) 20 mg PO DAILY Print Language: Khmer
[2025-03-26 03:56] LABS: Hematocrit 36.1 % (42.0-52.0); Hemoglobin 12.8 g/dl (14.0-18.0); Imm Gran Abs Auto 0.01 X10*3/uL (0.00-0.03); Imm Gran Pct Auto 0.1 % (0.0-0.4); Lymphocytes Absolute Auto 2.0 X10*3/uL (1.2-4.9); MANUAL DIFF FLAG NO; Mean Corpuscular HGB Conc 35.5 g/dl (31.0-36.0); Mean Corpuscular Hemoglobin 29.8 pg (27.0-33.0); Mean Corpuscular Volume 84.1 fL (80.0-98.0); NRBC Abs Auto 0.000 X10*3/uL (0.0-0.012); NRBC Pct Auto 0.0 /100WBC (0.0-0.2); Platelet Count 251 X10*3/uL (160-400); Red Blood Count 4.29 X10*6/uL (4.60-5.80); White Blood Count 7.4 X10*3/uL (4.8-10.8)
[2025-03-26 04:12] LABS: COVID-19 Test Negative (Negative); IDNOW Serial# 6674DD1D
[2025-03-26 04:19] LABS: Alanine Aminotransferase 14 U/L (0-40); Albumin Level 3.9 g/dL (3.5-5.0); Alkaline Phosphatase 86 U/L (39-117); Anion Gap 13 (12-20); Aspartate Amino Transferase 22 U/L (5-37); Blood Urea Nitrogen 16 mg/dL (9-16); Calcium 9.4 mg/dL (8.4-10.2); Carbon Dioxide 27 mmol/L (22-29); Chloride 107 mmol/L (96-108); Creatinine Clr Calc Pharmacy 122.7; Estimated Glomerular Filt Rate > 60; Potassium 3.8 mmol/L (3.3-5.1); Sodium 143 mmol/L (135-145); Total Protein 6.1 g/dL (6.5-8.0)
[2025-03-26 04:29] LABS: Cannabinoid Screen Urine POSITIVE (Not Detect)
--- OUTSIDE RECORDS SUMMARY | 2025-03-26 04:52 | XMS_ITS | Encounter Summary ---
Author Organization [facility] Address [address] [place] [address] Care Team Providers Care Superintendent Power Name Role Phone Physician, Pcp Unknown Primary Care Provider Margarita vailable Encounter Details Date Type Department Care Team (Late st Contact Info) Description 06/09/2024 Lab Requisition [facility] - Main Lab [address] [place] [address] Jackie Sena MD [address] [place], [place] [id number] Opioid dependence, uncomplicated (CMS/[facility] V24, CMS/[facility] V28) Social History Tobacco Use Types Packs/Day [...] 06/09/2024 8:14 AM EST Opioid dependence, uncomplicated (CMS/[facility]) documented in this encounter Results * Chlamydia trachomatis and Neisseria gonorrhoeae molecular study (06/09/2024 8:14 AM EST) Neisseria gonorrhoeae PCR Negative Negative LAB MOLECULAR DIAGNOSTICS METHOD 06/10/2024 9:52 AM EST [facility] Chlamydia trachomatis PCR Negative Negative LAB MOLECULAR DIAGNOSTICS METHOD 06/10/2024 9:52 AM EST [facility] Swab Urine specimen from urethra / Unknown 06/09/2024 8:14 AM EST 06/09/2024 2:10 PM EST Jackie Sena MD LAB MICROBIOLOGY - GENE RAL ORDERABLES Final Result [facility] [address] [place] [address], documented in this encounter Visit Diagnoses Diagnosis Opioid dependence, uncomplicated (CMS/HCC V24, CMS/HCC V28) documented in this encounter Care Teams Superintendent Power Relationship Specialty Start Date End Date Physician, Pcp Unknown PCP - General 01/12/25 documented as of this encounter
--- OUTSIDE RECORDS SUMMARY | 2025-03-26 04:52 | XMS_ITS | Clinical Summary ---
Author Organization [address] [facility] Address [address] [place] [address] Phone Care Team Providers Care Wash Mill Operator Name Role Phone Physician, Pcp Unknown Primary Care Provider Margarita vailable Allergies Active Allergy Reactions Criticality Noted Date Comments [place] 01/12/2025 Medications No known medications Encounters Date Type Department Care Team Description 01/12/2025 3:32 PM EDT - 01/12/2025 3:57 PM EDT Emergency [facility] [address] [place] [address] Contusion of right thigh, initial [...] 06/18/2022 Social Influencers of Health Screening 06/18/2022 Depression Screening 07/20/2024 COVID-19 Vaccine (2 - 2024-2 6 season) 2025 04/15/2022 Influenza Vaccine (#1) 2025 , 06/10/2022, 05/03/2017 [...] Signed Date: 01/12/2025 14:30 ET Workstation ID: [id number] Transcribed By: Self Edit Transcribed Date: 01/12/2025 [...] Signed Date: 01/12/2025 14:30 ET Workstation ID: [id number] Transcribed By: Self Edit Transcribed Date: 01/12/2025 [...] ited Result - Final Performing Organization Address [facility]/ZIP Co de Phone Number [facility] [address] [place] [address], [place] [phone] * HIV 1,2 antibody, p24 antigen with reflex to differentiation (06/10/2024 10:57 AM EST) [facility] HIV Combo AB/AG Negative Negative LAB [...] ited Result - Final Performing Organization Address [facility] de Phone Number [facility] [address] [place] [address], [place] [phone] from Last 3 Months or Most Recently Relevant to Health Maintenance Insurance [facility] MEDICARE Member Subscriber Plan / Payer (Ef fective 2022-Present) Name:Harsha Mendez Relation to Subscriber:Self Name:Harsha Mendez Payer ID:[id number] Group ID:Not on file Type:Not on file Address: [address] [place] [address] Care Teams Wash Mill Operator Relationship Specialty Start Date End Date Physician, Pcp Unknown PCP - General 01/12/25
--- OUTSIDE RECORDS SUMMARY | 2025-03-26 04:52 | XMS_ITS | Encounter Summary ---
Author Organization [facility] Address [address] [place] [address] Care Team Providers Care Regional Forester Name Role Phone Physician, Pcp Unknown Primary Care Provider Margarita vailable Encounter Details Date Type Department Care Team (Late st Contact Info) Description 06/10/[address] [facility] - Main Lab [address] [facility] [place] [address] Jackie Sena MD [address] [place] [address] Opioid dependence, uncomplicated (CMS/HCC V24, [...] to confirmation (06/10/2024 10:57 AM EST) Pathologist [facility] Hepatitis B Surface Ag Negative Negative LAB CHEMISTRY METHOD 06/10/2024 6:[address] [facility] Blood Venous blood specimen / Unknown 06/10/2024 10:57 AM EST 06/10/2024 2:[address] [facility] - 06/10/2024 6:40 PM EST Over the counter supplements containing high doses of biotin may interfere with this assay. If interference is suspected, patients shoud be retested after refraining from biotin supplements for 72 hours. us Jackie Sena MD LAB BLOOD ORDERABLES Fi nal Result [facility] [address] [place] [address], * (ABNORMAL) Hepatitis B surface antibody (06/10/2024 10:57 AM EST) Hepatitis B Surface Ab Positive (A) Negative LAB CHEMISTRY METHOD 06/10/2024 6:[address] [facility] Hepatitis B Surface Ab Quantitative 192.9 mIU/mL LAB CHEMISTRY METHOD 06/10/2024 6:[address] [facility] Blood Venous blood specimen / Unknown 06/10/2024 10:57 AM EST 06/10/2024 2:[address] [facility] - 06/10/2024 6:29 PM EST >=10 mIU/mL is considered to be consistent with immunity. Jackie Sena MD LAB BLOOD ORDERABLES Fi nal Result Performing Organization Address City/[facility]/ZIP Co de Phone Number [facility] [address] [place] [address], [place] [phone] * Hepatitis C antibody (06/10/2024 10:57 AM EST) Hepatitis C Antibody Negative Negative LAB CHEMISTRY METHOD 06/11/2024 1:[address] [facility] Blood Venous blood specimen / Unknown 06/10/2024 10:57 AM EST 06/10/2024 2:22 PM EST Jackie Sena MD LAB BLOOD ORDERABLES Ed ited Result - Final Performing Organization Address [facility]/ZIP Co de Phone Number [facility] [address] [place] [address], [place] [phone] * Hepatitis A antibody IgM (06/10/2024 10:57 AM EST) Hepatitis A Antibody IgM Negative Negative LAB CHEMISTRY METHOD 06/10/2024 3:[address] [facility] Blood Venous blood specimen / Unknown 06/10/2024 10:57 AM EST 06/10/2024 2:[address] [facility] - 06/10/2024 3:46 PM EST Over the counter supplements containing high doses of biotin may interfere with this assay. If interference is suspected, patients shoud be retested after refraining from biotin supplements for 72 hours. us Jackie Sena MD LAB BLOOD ORDERABLES Fi nal Result Performing Organization Address [facility] Co de Phone Number [facility] [address] [place] [address], * HIV 1,2 antibody, p24 antigen with reflex to differentiation (06/10/2024 10:57 AM EST) HIV Combo AB/AG Negative Negative LAB CHEMISTRY METHOD 06/11/2024 1:[address] [facility] Blood Venous blood specimen / Unknown 06/10/2024 10:57 AM EST 06/10/2024 2:[address] [facility] - 06/11/2024 1:14 AM EST [...] ited Result - Final Performing Organization Address [facility] de Phone Number [facility] [address] [place] [address], * Hepatitis B core antibody, total (06/10/2024 10:57 AM EST) Hep B Core Total Ab Negative Negative LAB CHEMISTRY METHOD 06/10/2024 3:[address] [facility] Blood Venous blood specimen / Unknown 06/10/2024 10:57 AM EST 06/10/2024 2:22 PM EST us Jackie Sena MD LAB BLOOD ORDERABLES Fi nal Result Performing Organization Address [facility] Co de Phone Number [facility] [address] [place] [address], [place] [phone] * Treponema pallidum antibody with reflex to RPR and particle agglutination (06/10/2024 10:57 AM EST) Pathologist [facility] T. Pallidum Antibodies Negative Negative LAB CHEMISTRY METHOD 06/10/2024 3:[address] [facility] Blood Venous blood specimen / Unknown 06/10/2024 10:57 AM EST 06/10/2024 2:22 PM EST Jackie Sena MD LAB BLOOD ORDERABLES Fi nal Result Performing Organization Address [facility]/ZIP Co de Phone Number [facility] [address] [place] [address], [place] [phone] * Comprehensive metabolic panel (06/10/2024 10:57 AM EST) Pathologist [facility] Sodium 138 133 - 145 mmol/L LAB CHEMISTRY METHOD 06/11/2024 1:19 AM [facility] Potassium 4.5 3.5 - 5.5 mmol/L LAB CHEMISTRY METHOD 06/11/2024 1:19 AM [facility] Chloride 106 96 - 110 mmol/L LAB CHEMISTRY METHOD 06/11/2024 1:19 AM [facility] CO2 28 21 - 32 mmol/L LAB CHEMISTRY METHOD 06/11/2024 1:19 AM [facility] Anion Gap 4 3 - 11 LAB CHEMISTRY METHOD 06/11/2024 1:19 AM [facility] Glucose 77 70 - 100 mg/dL LAB CHEMISTRY METHOD 06/11/2024 1:19 AM [facility] BUN 12 5 - 25 mg/dL LAB CHEMISTRY METHOD 06/11/2024 1:19 AM [facility] Creatinine 0.79 0.70 - 1.30 mg/dL LAB CHEMISTRY METHOD 06/11/2024 1:19 AM [facility] eGFR 113 >=60 mL/min/1. 73m2 LAB CHEMISTRY METHOD 06/11/2024 1:19 AM [facility] Comment:Calculation based on the Chronic Kidney Disease Epidemiology Collaboration (CKD-EPI) equation refit without adjustment for race. BUN/Creatinine Ratio 15.2 LAB CHEMISTRY METHOD 06/11/2024 1:19 AM [facility] Calcium 9.6 8.5 - 10.5 mg/dL LAB CHEMISTRY METHOD 06/11/2024 1:19 AM [facility] AST (SGOT) 23 10 - 42 unit/L LAB CHEMISTRY METHOD 06/11/2024 1:19 AM [facility] ALT (SGPT) 24 10 - 60 unit/L LAB CHEMISTRY METHOD 06/11/2024 1:19 AM [facility] Alkaline Phosphatase 71 42 - 121 unit/L LAB CHEMISTRY METHOD 06/11/2024 1:19 AM [facility] Total Protein 6.8 6.0 - 8.0 g/dL LAB CHEMISTRY METHOD 06/11/2024 1:19 AM [facility] Albumin 3.9 3.2 - 5.0 g/dL LAB CHEMISTRY METHOD 06/11/2024 1:19 AM [facility] Total Bilirubin 0.4 0.0 - 1.4 mg/dL LAB CHEMISTRY METHOD 06/11/2024 1:19 AM [facility] Blood Venous blood specimen / Unknown 06/10/2024 10:57 AM EST 06/10/2024 2:22 PM EST us Jackie Sena MD LAB BLOOD ORDERABLES Ed ited Result - Final [facility] [address] [place] [address], * Complete blood count (06/10/2024 10:57 AM EST) [facility] WBC 6.5 4.8 - 10.8 K/mcL LAB HEMETOLOGY METHOD 06/10/2024 2:[address] [facility] RBC 4.60 4.50 - 5.50 M/mcL LAB HEMETOLOGY METHOD 06/10/2024 2:[address] [facility] Hemoglobin 13.8 13.5 - 17.5 g/dL LAB HEMETOLOGY METHOD 06/10/2024 2:32 PM [facility] Hematocrit 42.2 42.0 - 54.0 % LAB HEMETOLOGY METHOD 06/10/2024 2:32 PM [facility] MCV 92.5 79.0 - 98.0 FL LAB HEMETOLOGY METHOD 06/10/2024 2:32 PM [facility] MCH 30.3 27.0 - 32.0 pcg LAB HEMETOLOGY METHOD 06/10/2024 2:32 PM [facility] MCHC 32.7 32.0 - 37.0 g/dL LAB HEMETOLOGY METHOD 06/10/2024 2:32 PM [facility] RDW 12.3 11.0 - 15.0 % LAB HEMETOLOGY METHOD 06/10/2024 2:32 PM [facility] Platelets 286 130 - 400 K/mcL LAB HEMETOLOGY METHOD 06/10/2024 2:32 PM [facility] MPV 9.8 7.0 - 11.0 FL LAB HEMETOLOGY METHOD 06/10/2024 2:32 PM [facility] NRBC 0.0 <1.0 % LAB HEMETOLOGY METHOD 06/10/2024 2:32 PM [facility] NRBC Absolute 0.00 <0.10 K/mcL LAB HEMETOLOGY METHOD 06/10/2024 2:[address] [facility] Blood Venous blood specimen / Unknown 06/10/2024 10:57 AM EST 06/10/2024 2:22 PM EST us Jackie Sena MD LAB BLOOD ORDERABLES Fi nal Result [facility] [address] [place] [address], documented in this encounter Visit Diagnoses Diagnosis Opioid dependence, uncomplicated (CMS/HCC V24, CMS/HCC V28) documented in this encounter Care Teams Regional Forester Relationship Specialty Start Date End Date Physician, Pcp Unknown PCP - General 01/12/25 documented as of this encounter
--- NOTE | 2025-03-26 05:52 | PC.NURSE ---
PT complaining of pain and demanding Ativan. States he has upper back and ear pain 10/10, no recent injuries or trauma. Med rec completed. Provider notified
--- NOTE | 2025-03-26 05:56 | PC.NURSE ---
med rec completed. PT reports methadone dosing at [facility]- call placed and voicemail left with [phone], call also placed to [phone] no answer
--- NOTE | 2025-03-26 06:25 | PC.NURSE ---
Ale Washington RN reports pt's last dose was on 03/14/25 80mg.
[2025-03-26 07:03] VITALS: PULSE 57
--- NOTE | 2025-03-26 07:09 | PC.NURSE ---
Assumed care, Report provided. Pt is yelling out for help, calling out of his mother, coming out to the desk asking for help multiple times. Pt has vomited his breakfast. Order for COWS placed, pt scored 20, VSS. Provider made aware.
--- NOTE | 2025-03-26 07:19 | ECG_ITS ---
Test Reason : CHECK PROLONG QT Blood Pressure : */* mmHG Vent. Rate : 60 BPM Atrial Rate : 60 BPM P-R Int : 166 ms QRS Dur : 98 ms QT Int : 416 ms P-R-T Axes : 70 85 80 degrees QTcB Int : 416 ms Normal sinus rhythm Normal ECG When compared with ECG of 31-Mar-2023 00:53, No significant change was found Referred By: Neftali Roach Electronically Signed By: NIRMALA GIBBS MD
[2025-03-26] MEDS: methADONE HCl 20 MG/2 ML ORAL.CONC 30 MG PO (07:32)
[2025-03-26 07:38] VITALS: BP 109/60; PULSE 56; RESP 20
--- NOTE | 2025-03-26 09:13 | HE.PHANOTE ---
Re Methadone Pt receives 80 mg from [facility], last dose was 03/14/25 @0800.
[2025-03-26 11:01] VITALS: BP 109/60; PULSE 56; RESP 20; TEMP 36.6; O2SAT 100
--- NOTE | 2025-03-26 11:12 | MHC.CARE ---
Patient evaluated by the CARE Team, he is not suicidal or experiencing any psychotic symptoms and would like to leave, disposition D/C to current providers, family will pick him up from the ED. ED provider, Dr. Carreon updated and in agreement with plan.
== END 2025-03-26 11:15 | disposition home or self-care (01) ==
PROVIDERS: Emergency Provider Emergency Medicine
DX: F25.9 Schizoaffective disorder, unspecified (principal); F41.9 Anxiety disorder, unspecified; R06.02 Shortness of breath; F17.210 Nicotine dependence, cigarettes, uncomplicated; F33.1 Major depressive disorder, recurrent, moderate; Z11.52 Encounter for screening for COVID-19; Z51.81 Encounter for therapeutic drug level monitoring; Z79.899 Other long term (current) drug therapy
CPT/HCPCS: 36415; 80053; 80307; 85025; 87635; 93005; 99285; S9485

== ENCOUNTER → 2025-03-26 07:19 | Outpatient (BNV) | payer OTHER, SELFPAY | PROVIDERS: Emergency Provider Emergency Medicine; Visit Provider Internal Medicine Cardiovascular Disease | DX: R53.1 Weakness (principal) | CPT/HCPCS: 93010 ==

== ENCOUNTER 2025-03-31 04:54 | Emergency (ER) | payer OTHER, SELFPAY ==
[2025-03-31 04:57] VITALS: BP 137/74; PULSE 70; O2SAT 99
[2025-03-31 05:09] VITALS: BP 127/87; PULSE 68; RESP 20; TEMP 36.4; O2SAT 99; BMI 19.5
--- NOTE | 2025-03-31 05:18 | ED_ITS ---
HPI - Psych General Chief Complaint: Psychiatric Symptoms Stated Complaint: BACK PAIN/ HOSTILE/SI/SECTION 12 Time Seen by Provider: 03/31/25 05:18 Source: patient and EMS Mode of arrival: EMS Limitations: no limitations History of Present Illness ED Provider: HPI Narrative: 45-year-old male came in by ambulance, when I evaluated the patient he denied suicidal homicidal ideation to me in the nurse, he stated that he made a SI statements to the police but he was joking, he actually just told me that he wanted a sandwich and then to be discharged as quickly as possible so he can get to his methadone clinic. He has no other complaints or concerns. Related Data Home Medications ?Medication ?Instructions ?Recorded ?Confirmed methadone 10 mg/mL oral syringe 80 mg PO DAILY 2 03/26/25 (FOR ORAL USE ONLY) baclofen 10 mg tablet 10 mg PO BID 03/26/25 buspirone 5 mg tablet 5 mg PO BID PRN Anxiety 02/1003/26/25 omeprazole 20 mg capsule,delayed 20 mg PO DAILY 03/26/25 release Previous Rx's ?Medication ?Instructions ?Recorded paliperidone palmitate 156 mg/mL 156 mg IM Q30D #0 mL 06/17/22 intramuscular syringe (Invega Sustenna) Allergies Allergy/AdvReac Type Severity Reaction Status Date / Time lithium Allergy Unknown Rash Verified 03/31/25 05:10 Review of Systems 2 Constitutional: Constitutional: Reports as per HPI [facility] Past Medical History Medical History Schizoaffective disorder, depressive type Opioid use disorder, moderate, dependence Depression Social History Social History Household Members: Other Household Members Other:: Step Father Housing: Apartment Do you presently have visiting nurse or other home services: No Alcohol intake: current Alcohol intake frequency: holidays/special occasions only Patient Tobacco Use Status: Current everyday Tobacco user Tobacco use type: Cigarette Cigarette Packs Per Day: 1 Cigarettes Per Day: 20.0 Years Smoked: 15 e-Cigarette/Vaping Use: Currently Using Second Hand Smoke Exposure: No Substance Use Type: Crack/Cocaine, Heroin and Opiates Do you have a plan to hurt others: No Plan service: No Sexual orientation: Don't Know Physical Exam 2 Vital Signs: Vital Signs: Last Vital Signs Temp 97.6 F 03/31/25 05:22 Pulse 68 03/31/25 05:22 Resp 20 03/31/25 05:22 BP 127/87 03/31/25 05:22 Pulse Ox 99 03/31/25 05:22 O2 Del Method Room Air 03/31/25 05:22 BMI result Body Mass Index 19.5 Const: Other: Patient ambulatory Conversational, non pressured speech Speaking full sentences Alert and oriented x4 No SI or HI Medical Decision Making Medical Decision Making [facility] Narrative: 5:23 AM 03/31/2025 (Dr. Neftali Roach): I was asked to evaluate the patient who is brought into behavioral pods patient wanted to be discharged, when I saw the patient he was sitting on the bed in eating a sandwich stating that he was joking with the police and he really has no concerns or anything else that can be addressed in his healthcare system, he would like to be discharged as soon as possible so I can get to my methadone clinic . As he denied SI or HI to myself and to nursing staff did not feel the need for further workup. He did have blood work drawn upon initial presentation to the Behavioral pod. I have reviewed his prior and recent visits, he has been cleared by care team in the past, he does use methadone but also has substance use issues, and I feel comfortable discharging him. Differential Diagnosis Differential Diagnoses: The differential diagnosis associated with the presentation includes (SI, HI, trauma, intoxication) Lab Data [facility] Lab Attestation statement: I reviewed the patient's lab results. 03/31/25 05:14 03/31/25 05:14 Labs: Lab Results 03/31/25 Range/Units 05:14 WBC 8.3 (4.8-10.8) X10*3/uL RBC 4.61 (4.60-5.80) X10*6/uL Hgb 13.8 L (14.0-18.0) g/dl Hct 38.8 L (42.0-52.0) % MCV 84.2 (80.0-98.0) fL MCH 29.9 (27.0-33.0) pg MCHC 35.6 (31.0-36.0) g/dl RDW 13.5 (11.0-16.0) % Plt Count 256 (160-400) X10*3/uL MPV 8.7 L (9.4-12.4) fL Immature Gran % (Auto) 0.4 (0.0-0.4) % Neut % (Auto) 74.2 H (45-73) % Lymph % (Auto) 16.2 L (20-40) % Mariposa % (Auto) 7.0 (2-11) % Eos % (Auto) 1.7 (0-4) % Baso % (Auto) 0.5 (0-2) % Lymph # (Auto) 1.4 (1.2-4.9) X10*3/uL Mariposa # (Auto) 0.6 (0.1-1.2) X10*3/uL Eos # (Auto) 0.1 (0.0-0.4) X10*3/uL Baso # (Auto) 0.0 (0.0-0.2) X10*3/uL Abs Immat Gran (auto) 0.03 (0.00-0.03) X10*3/uL Absolute Neuts (auto) 6.2 (2.0-8.3) x10*3/uL Absolute Nucleated RBC 0.000 (0.0-0.012) X10*3/uL Nucleated RBC % (auto) 0.0 (0.0-0.2) /100WBC Discharge Plan Discharge Clinical Impression: Schizoaffective disorder, depressive type, Opioid use disorder, moderate, dependence Patient Disposition: Elopement Additional Instructions: Please go to the clinic to get your methadone No reports of suicidal homicidal ideations in the emergency department Worsening issues or concerns come back to the ER Prescriptions: No Action methadone 10 mg/mL Syringe 80 mg PO DAILY Rx Instructions: Confirmed with Tricia PORRAS at [facility]. LD was on 03/30/23 at 118mg's @ 1156 Invega Sustenna 156 mg/mL Syringe 156 mg IM Q30D Qty: 0 0RF Rx Instructions: per pt due 02/19/25 (missed) buspirone 5 mg tablet 5 mg PO BID PRN (Reason: Anxiety) baclofen 10 mg tablet 10 mg PO BID omeprazole 20 mg capsule,delayed release(DR/EC) 20 mg PO DAILY Print Language: Turkish
--- NOTE | 2025-03-31 05:18 | PC.NURSE ---
pt change management coordinator, labs collected and sent, pt denies SI/ HI, Notified provider, pt clear do be discharge, pt requesting to be discharge to get methadone down the street.
[2025-03-31 05:20] LABS: Hematocrit 38.8 % (42.0-52.0); Hemoglobin 13.8 g/dl (14.0-18.0); Imm Gran Abs Auto 0.03 X10*3/uL (0.00-0.03); Imm Gran Pct Auto 0.4 % (0.0-0.4); Lymphocytes Absolute Auto 1.4 X10*3/uL (1.2-4.9); MANUAL DIFF FLAG NO; Mean Corpuscular HGB Conc 35.6 g/dl (31.0-36.0); Mean Corpuscular Hemoglobin 29.9 pg (27.0-33.0); Mean Corpuscular Volume 84.2 fL (80.0-98.0); NRBC Abs Auto 0.000 X10*3/uL (0.0-0.012); NRBC Pct Auto 0.0 /100WBC (0.0-0.2); Platelet Count 256 X10*3/uL (160-400); Red Blood Count 4.61 X10*6/uL (4.60-5.80); White Blood Count 8.3 X10*3/uL (4.8-10.8)
[2025-03-31 05:22] VITALS: BP 127/87; PULSE 68; RESP 20; TEMP 36.4; O2SAT 99
--- NOTE | 2025-03-31 05:24 | PC.NURSE ---
pt a&o, no sob or chest pain, pt able to communicated needs, reviewed discharge paper work, pt verbalized understanding, pt denies SI/HI upon discharge, pt had a steady gait. no sign of distress. pt escorted by security
--- OUTSIDE RECORDS SUMMARY | 2025-03-31 05:29 | XMS_ITS | Encounter Summary ---
Author Organization [facility] Address [address] [place] [address] Care Team Providers Care Radio Host Name Role Phone Physician, Pcp Unknown Primary Care Provider Margarita vailable Encounter Details Date Type Department Care Team (Late st Contact Info) Description 06/09/2024 Lab Requisition [facility] - Main Lab [address] [place] [address] Jackie Sena MD [address] [place], [place] [id number] Opioid dependence, uncomplicated (CMS/[facility] V24, CMS/[facility] V28) Social History Tobacco Use Types Packs/Day [...] 06/09/2024 8:14 AM EST Opioid dependence, uncomplicated (CMS/[facility]) documented in this encounter Results * Chlamydia [...] ORDERABLES Final Result [facility] [address] [place] [address], documented in this encounter Visit Diagnoses Diagnosis Opioid dependence, uncomplicated (CMS/HCC V24, CMS/HCC V28) documented in this encounter Care Teams Radio Host Relationship Specialty Start Date End Date Physician, Pcp Unknown PCP - General 01/12/25 documented as of this encounter
--- OUTSIDE RECORDS SUMMARY | 2025-03-31 05:29 | XMS_ITS | Encounter Summary ---
Author Organization [facility] Address [address] [place] [address] Care Team Providers Care Immunohematologist Name Role Phone Physician, Pcp Unknown Primary Care Provider Margarita vailable Encounter Details Date Type Department Care Team (Late st Contact Info) Description 06/10/2024 Lab Requisition [facility] [address] [facility] [place] [address] Jackie Sena MD [address] [place] [address] Opioid dependence, uncomplicated (CMS/HCC V24, [...] to confirmation (06/10/2024 10:57 AM EST) Pathologist [facility] Hepatitis B Surface Ag Negative Negative LAB CHEMISTRY METHOD 06/10/2024 6:40 PM EST [facility] Blood Venous blood specimen / Unknown 06/10/2024 10:57 AM EST 06/10/2024 2:22 PM EST Narrative [facility] - 06/10/2024 6:40 PM EST Over the counter supplements containing high doses of biotin may interfere with this assay. If interference is suspected, patients shoud be retested after refraining from biotin supplements for 72 hours. us Jackie Sena MD LAB BLOOD ORDERABLES Fi nal Result [facility] [address] [place] [address], * (ABNORMAL) Hepatitis B surface antibody (06/10/2024 10:57 AM EST) Hepatitis B Surface Ab Positive (A) Negative LAB CHEMISTRY METHOD 06/10/2024 6:29 PM EST [facility] Hepatitis B Surface Ab Quantitative 192.9 mIU/mL LAB CHEMISTRY METHOD 06/10/2024 6:29 PM EST [facility] Blood Venous blood specimen / Unknown 06/10/2024 10:57 AM EST 06/10/2024 2:22 PM EST Narrative [facility] - 06/10/2024 6:29 PM EST >=10 mIU/mL is considered to be consistent with immunity. Jackie Sena MD LAB BLOOD ORDERABLES Fi nal Result Performing Organization Address City/[facility] [address]/ZIP Co de Phone Number [facility] [address] [place] [address], [place] [phone] * Hepatitis C antibody (06/10/2024 10:57 AM EST) Hepatitis C Antibody Negative Negative LAB CHEMISTRY METHOD 06/11/2024 1:14 AM EST [facility] Blood Venous blood specimen / Unknown 06/10/2024 10:57 AM EST 06/10/2024 2:22 PM EST Jackie Sena MD LAB BLOOD ORDERABLES Ed ited Result - Final Performing Organization Address [facility] [address]/ZIP Co de Phone Number [facility] [address] [place] [address], [place] [phone] * Hepatitis A antibody IgM (06/10/2024 10:57 AM EST) Hepatitis A Antibody IgM Negative Negative LAB CHEMISTRY METHOD 06/10/2024 3:46 PM EST [facility] Blood Venous blood specimen / Unknown 06/10/2024 10:57 AM EST 06/10/2024 2:22 PM EST Narrative [facility] - 06/10/2024 3:46 PM EST Over the counter supplements containing high doses of biotin may interfere with this assay. If interference is suspected, patients shoud be retested after refraining from biotin supplements for 72 hours. us Jackie Sena MD LAB BLOOD ORDERABLES Fi nal Result Performing Organization Address [facility] [address]/[facility] Co de Phone Number [facility] [address] [place] [address], * HIV 1,2 antibody, p24 antigen with [...] Result - Final Performing Organization Address [facility] de Phone Number [facility] [address] [place] [address], * Hepatitis B core antibody, total (06/10/2024 10:57 AM EST) Hep B Core Total Ab Negative Negative LAB CHEMISTRY METHOD 06/10/2024 3:45 PM EST [facility] Blood Venous blood specimen / Unknown 06/10/2024 10:57 AM EST 06/10/2024 2:22 PM EST us Jackie Sena MD LAB BLOOD ORDERABLES Fi nal Result Performing Organization Address [facility] [address]/[facility] Co de Phone Number [facility] [address] [place] [address], [place] [phone] * Treponema pallidum antibody with reflex to RPR and particle agglutination (06/10/2024 10:57 AM EST) Pathologist [facility] T. Pallidum Antibodies Negative Negative LAB CHEMISTRY METHOD 06/10/2024 3:09 PM EST [facility] Blood Venous blood specimen / Unknown 06/10/2024 10:57 AM EST 06/10/2024 2:22 PM EST Jackie Sena MD LAB BLOOD ORDERABLES Fi nal Result Performing Organization Address [facility] [address] [facility]/ZIP Co de Phone Number [facility] [address] [place] [address], [place] [phone] * Comprehensive metabolic panel (06/10/2024 10:57 AM EST) Pathologist [facility] Sodium 138 133 - 145 mmol/L LAB CHEMISTRY METHOD 06/11/2024 1:19 AM [facility] Potassium 4.5 3.5 - 5.5 mmol/L LAB CHEMISTRY METHOD 06/11/2024 1:19 AM [facility] Chloride 106 96 - 110 mmol/L LAB CHEMISTRY METHOD 06/11/2024 1:19 AM [facility] CO2 28 21 - 32 mmol/L LAB CHEMISTRY METHOD 06/11/2024 1:19 AM [facility] Anion Gap 4 3 - 11 LAB CHEMISTRY METHOD 06/11/2024 1:19 AM [facility] Glucose 77 70 - 100 mg/dL LAB CHEMISTRY METHOD 06/11/2024 1:19 AM [facility] BUN 12 5 - 25 mg/dL LAB CHEMISTRY METHOD 06/11/2024 1:19 AM [facility] Creatinine 0.79 0.70 - 1.30 mg/dL LAB CHEMISTRY METHOD 06/11/2024 1:19 AM [facility] eGFR 113 >=60 mL/min/1. 73m2 LAB CHEMISTRY METHOD 06/11/2024 1:19 AM [facility] Comment:Calculation based on the Chronic Kidney Disease Epidemiology Collaboration (CKD-EPI) equation refit without adjustment for race. BUN/Creatinine Ratio 15.2 LAB CHEMISTRY METHOD 06/11/2024 1:19 AM [facility] Calcium 9.6 8.5 - 10.5 mg/dL LAB CHEMISTRY METHOD 06/11/2024 1:19 AM [facility] AST (SGOT) 23 10 - 42 unit/L LAB CHEMISTRY METHOD 06/11/2024 1:19 AM [facility] ALT (SGPT) 24 10 - 60 unit/L LAB CHEMISTRY METHOD 06/11/2024 1:19 AM [facility] Alkaline Phosphatase 71 42 - 121 unit/L LAB CHEMISTRY METHOD 06/11/2024 1:19 AM [facility] Total Protein 6.8 6.0 - 8.0 g/dL LAB CHEMISTRY METHOD 06/11/2024 1:19 AM [facility] Albumin 3.9 3.2 - 5.0 g/dL LAB CHEMISTRY METHOD 06/11/2024 1:19 AM [facility] Total Bilirubin 0.4 0.0 - 1.4 mg/dL LAB CHEMISTRY METHOD 06/11/2024 1:19 AM [facility] Blood Venous blood specimen / Unknown 06/10/2024 10:57 AM EST 06/10/2024 2:22 PM EST us Jackie Sena MD LAB BLOOD ORDERABLES Ed ited Result - Final [facility] [address] [place] [address], * Complete blood count (06/10/2024 10:57 AM EST) [facility] WBC 6.5 4.8 - 10.8 K/mcL LAB HEMETOLOGY METHOD 06/10/2024 2:32 PM EST [facility] RBC 4.60 4.50 - 5.50 M/mcL LAB HEMETOLOGY METHOD 06/10/2024 2:32 PM EST [facility] Hemoglobin 13.8 13.5 - 17.5 g/dL LAB HEMETOLOGY METHOD 06/10/2024 2:32 PM [facility] Hematocrit 42.2 42.0 - 54.0 % LAB HEMETOLOGY METHOD 06/10/2024 2:32 PM [facility] MCV 92.5 79.0 - 98.0 FL LAB HEMETOLOGY METHOD 06/10/2024 2:32 PM [facility] MCH 30.3 27.0 - 32.0 pcg LAB HEMETOLOGY METHOD 06/10/2024 2:32 PM [facility] MCHC 32.7 32.0 - 37.0 g/dL LAB HEMETOLOGY METHOD 06/10/2024 2:32 PM [facility] RDW 12.3 11.0 - 15.0 % LAB HEMETOLOGY METHOD 06/10/2024 2:32 PM [facility] Platelets 286 130 - 400 K/mcL LAB HEMETOLOGY METHOD 06/10/2024 2:32 PM [facility] MPV 9.8 7.0 - 11.0 FL LAB HEMETOLOGY METHOD 06/10/2024 2:32 PM [facility] NRBC 0.0 <1.0 % LAB HEMETOLOGY METHOD 06/10/2024 2:32 PM [facility] NRBC Absolute 0.00 <0.10 K/mcL LAB HEMETOLOGY METHOD 06/10/2024 2:32 PM EST [facility] Blood Venous blood specimen / Unknown 06/10/2024 10:57 AM EST 06/10/2024 2:22 PM EST us Jackie Sena MD LAB BLOOD ORDERABLES Fi nal Result [facility] [address] [place] [address], documented in this encounter Visit Diagnoses Diagnosis Opioid dependence, uncomplicated (CMS/HCC V24, CMS/HCC V28) documented in this encounter Care Teams Immunohematologist Relationship Specialty Start Date End Date Physician, Pcp Unknown PCP - General 01/12/25 documented as of this encounter
--- OUTSIDE RECORDS SUMMARY | 2025-03-31 05:29 | XMS_ITS | Clinical Summary ---
Author Organization [address] [facility] Address [address] [place] [address] Phone Care Team Providers Care Administrative Receptionist Name Role Phone Physician, Pcp Unknown Primary Care Provider Margarita vailable Allergies Active Allergy Reactions Criticality Noted Date Comments [place] 01/12/2025 Medications No known medications Encounters Date Type Department Care Team Description 01/12/2025 3:32 PM EDT - 01/12/2025 3:57 PM EDT Emergency [facility] Emergency [address] [place] [address] Contusion of right thigh, initial [...] Signed Date: 01/12/2025 14:30 ET Workstation ID: [id number] Transcribed By: Self Edit Transcribed Date: 01/12/2025 [...] Signed Date: 01/12/2025 14:30 ET Workstation ID: [id number] Transcribed By: Self Edit Transcribed Date: 01/12/2025 [...] ited Result - Final Performing Organization Address [facility]/ZIP Co de Phone Number [facility] [address] [place] [address], [place] [phone] * HIV 1,2 antibody, p24 antigen with reflex to differentiation (06/10/2024 10:57 AM EST) [facility] HIV Combo AB/AG Negative Negative LAB CHEMISTRY [...] ited Result - Final Performing Organization Address [facility]/[place] de Phone Number [facility] [address] [place] [address], [place] [phone] from Last 3 Months or Most Recently Relevant to Health Maintenance Insurance [facility] [employer] Member Subscriber Plan / Payer (Ef fective 2022-Present) Name:Harsha Mendez Relation to Subscriber:Self Name:Harsha Mendez Payer ID:[id number] Group ID:Not on file Type:Not on file Address: [address] [place] [address] Care Teams Administrative Receptionist Relationship Specialty Start Date End Date Physician, Pcp Unknown PCP - General 01/12/25
[2025-03-31 05:37] LABS: Alanine Aminotransferase 12 U/L (0-40); Albumin Level 4.1 g/dL (3.5-5.0); Alkaline Phosphatase 78 U/L (39-117); Anion Gap 13 (12-20); Aspartate Amino Transferase 23 U/L (5-37); Blood Urea Nitrogen 11 mg/dL (9-16); Calcium 9.3 mg/dL (8.4-10.2); Carbon Dioxide 26 mmol/L (22-29); Chloride 107 mmol/L (96-108); Creatinine Clr Calc Pharmacy 114.4; Estimated Glomerular Filt Rate > 60; Potassium 3.7 mmol/L (3.3-5.1); Sodium 142 mmol/L (135-145); Total Protein 6.5 g/dL (6.5-8.0)
== END 2025-03-31 05:26 | disposition left against medical advice (07) ==
LOC: HO.ED 05:26
PROVIDERS: Emergency Provider Emergency Medicine
DX: F25.8 Other schizoaffective disorders (principal); F32.A Depression, unspecified; F11.20 Opioid dependence, uncomplicated; Z53.21 Procedure and treatment not carried out due to patient leaving prior to being seen by health care provider
CPT/HCPCS: 36415; 80053; 80307; 85025; 99283; 99284

== ENCOUNTER 2025-04-10 13:21 | Emergency (ER) | payer OTHER, SELFPAY ==
[2025-04-10 13:36] VITALS: BP 142/84; O2SAT 95; BMI 18.6
[2025-04-10 13:41] VITALS: BP 116/81; PULSE 77; RESP 16; TEMP 36.9; O2SAT 97
--- NOTE | 2025-04-10 13:53 | PC.NURSE ---
Addendum entered by Denise Santiago RN 04/10/25 13:53: Patient is a 42 y.o. male who carries a dx of schizoaffective disorder, depressive type, and opioid use disorder. He presented to [facility] ED after an accidental overdose. Pt has a history of using 3-5 bags of fentanyl via insufflation 3-5 times a week for over a year. Patient noted to be panhandling by PD and appeared altered, responsive to verbal stimuli. When EMS arrived, patient was unresponsive with a pox 80%. Patient denied any drug use but was given narcan 4mg intranasal with good effect. Patient unkempt and appears unhoused. Patient sleepy but arrousable to verbal stimuli. Lungs clear bilat. Respirations even and non-labored. Abdomen flat, soft, non-tender with positive bowel sounds. Positive pedal pulses with no edema. Original Note: Medical History ) Schizoaffective disorder, depressive type Opioid use disorder, moderate, dependence Depression
--- NOTE | 2025-04-10 14:48 | PC.NURSE ---
Patient noted to get oob with c-collar and ambulate to the bathroom. Upon returning to the room, patient had removed collar.
--- NOTE | 2025-04-10 14:55 | ED.GENADULT ---
HPI - General Adult General Chief complaint: Overdose Stated complaint: ETOH-narcan 4 ml Time Seen by Provider: 04/10/25 13:38 Source: patient Mode of arrival: ambulatory Limitations: no limitations History of Present Illness ED Provider: Navjot Tejada [facility] narrative: motor 5-year-old male presents to ED for opioid overdose. Patient was found on the ground and had to be given 4 mm of Narcan. EMS states patient's O2 sat was 80%. After Narcan patient became alert oriented x4. patient himself refusing care and does not want any further management. Patient does not want rehab. Related Data Home Medications ?Medication ?Instructions ?Recorded ?Confirmed methadone 10 mg/mL oral syringe 80 mg PO DAILY 06/09/22 03/26/25 (FOR ORAL USE ONLY) baclofen 10 mg tablet 10 mg PO BID 03/26/25 03/26/25 buspirone 5 mg tablet 5 mg PO BID PRN Anxiety 03/26/25 03/26/25 omeprazole 20 mg capsule,delayed 20 mg PO DAILY 03/26/25 03/26/25 release Previous Rx's ?Medication ?Instructions ?Recorded paliperidone palmitate 156 mg/mL 156 mg IM Q30D #0 mL 06/17/22 intramuscular syringe (Invega Sustenna) Allergies Allergy/AdvReac Type Severity Reaction Status Date / Time lithium Allergy Unknown Rash Verified 04/10/25 13:40 Review of Systems Review of Systems: OD Yes all other systems are reviewed and are negative PMFSH Past Medical History Medical History Schizoaffective disorder, depressive type Opioid use disorder, moderate, dependence Depression Social History Social History Household Members: Other Household Members Other:: Step Father Housing: Apartment Do you presently have visiting nurse or other home services: No Unable to assess alcohol history related to: Unknown Alcohol intake: current Alcohol intake frequency: does not drink Patient Tobacco Use Status: Current everyday Tobacco user Tobacco use type: Cigarette Cigarette Packs Per Day: 1 Cigarettes Per Day: 20.0 Years Smoked: 15 Smoked in Last 30 Days: Yes e-Cigarette/Vaping Use: Currently Using Second Hand Smoke Exposure: No Substance Use Type: Opiates Advance Directives: No Advance Directives Information Provided: No service: No Sexual orientation: Don't Know Physical Exam ED Vital Signs: Vital Signs - 24 hr 04/10/25 13:41 04/10/25 15:02 Temperature 98.4 F 98.4 F Pulse Rate 77 77 Respiratory Rate 16 16 Blood Pressure 116/81 116/81 Pulse Oximetry 97 97 Oxygen Delivery Method Room Air Room Air BMI result Body Mass Index 18.6 Const General: cooperative, healthy appearing, comfortable, no acute distress, well developed, alert, awake and Physically active Orientation/consciousness: patient oriented x3 HENMT Head: Yes normal to inspection, Yes No palpable skull fracture present, Yes normocephalic and Yes atraumatic Eyes General: appearance normal, both eyes and all related structures Neck Neck: Yes normal visual inspection, Yes full ROM, Yes no lymphadenopathy, Yes no meningeal signs, Yes trachea midline, Yes supple, No anterior neck swelling and No tender Chest Chest palpation & inspection: normal inspection of the chest and normal palpation of entire chest wall Resp Effort & Inspection: normal respiratory effort and able to speak in complete sentences Auscultation: clear to auscultation bilaterally Cardio Jugular venous distension: no JVD Heart sounds: S1 normal heart sound present and S2 normal heart sound present GI Inspection: Yes normal to inspection Palpation (GI): Soft to palpation, not firm, nontender, no guarding and not rigid General: Yes no CVA tenderness Back/Spine/Pelvis Back: no CVA tenderness and No back tenderness Skin General skin exam: no rashes or lesions noted, elasticity normal and turgor normal Neuro General: patient oriented x3, gait normal, tone normal, moves all extremities, Normal light touch and pain sensation, no meningeal signs, no focal motor deficits, CN's II-XI intact bilaterally and normal sensation to monofilament Extrem General: Yes normal to inspection, Yes full ROM and Yes capillary refill normal Psych Appearance: grossly normal, well kempt and not disheveled Medical Decision Making Medical Decision Making MDM Narrative: patient refused CAT scan to rule out any brain bleed cervical spine fracture or aspiration pneumonia. Patient refused evaluation by recovery team. Patient's left before he could receive Narcan. Patient informed risk of if he leaves without further evaluation but patient is still decided to leave. Patient was alert oriented x3 when he walked out the ER and during evaluation. Patient explained worrisome signs and informed to return to the ED immediately. Differential Diagnosis Differential Diagnoses: The differential diagnosis associated with the presentation includes ( Overdose) Admission/Observation Consideration of admission/observation: Escalation of care including admission/observation considered Independent Historian Clinical information obtained from an independent historian. History obtained from or confirmed by: Other ( patienet) Discharge Plan Discharge Clinical Impression: Drug overdose, Opioid use disorder, moderate, dependence Patient Disposition: Left Against Medical Advice Instructions: Adult Overdose (ED), Opioid Use Disorder (ED) Additional Instructions: Opiate use disorder You were seen in our Emergency Department today for treatment of opiate use disorder. You may have been dosed with medication for opiate use disorder (MOUD) in the form of suboxone or methadone. You may experience feeling some withdrawal symptoms and this is normal. The? dose in the Emergency Department is a starting dose and meant to be titrated up once you follow up with a clinic. Please do not feel discouraged, it is a process. The nurse has reviewed with you where to follow up and what information to bring with you, to continue treatment. You also may have been given naloxone (narcan) to take home with you. This medication is used to potentially treat opiate overdose. If you decide you want to stop or cut down on how much you?re using, you can call or walk into our outpatient Addiction Treatment office: [facility] (M-F 9am-5p) [address] [place] [address], [phone] You may have been provided with safer injection?items, please take time to take care of YOU and your health. Use new supplies whenever possible to lessen the chances of infections and other illnesses.? ?If you need more supplies, please go [facility],? [address] [place] [address] [place] you can call or text to coordinate delivery of safer supplies. You were also provided a list of several treatment providers in the area.? If you experience any worsening symptoms you cannot control please return to the ED or call 911. Please follow up at your next appointment. Things to look out for are fevers, chest pain, shortness of breath, severe pain, dizziness, fainting or any other concerns. Prescriptions: No Action methadone 10 mg/mL Syringe 80 mg PO DAILY Rx Instructions: Confirmed with Tricia PORRAS at [facility]. LD was on 03/30/23 at 118mg's @ 1156 Invega Sustenna 156 mg/mL Syringe 156 mg IM Q30D Qty: 0 0RF Rx Instructions: per pt due 02/19/25 (missed) buspirone 5 mg tablet 5 mg PO BID PRN (Reason: Anxiety) baclofen 10 mg tablet 10 mg PO BID omeprazole 20 mg capsule,delayed release(DR/EC) 20 mg PO DAILY Stand Alone Forms: Against Medical Advice Interventions: ED Discharge Assessment Last Done: 04/10/25 15:02 Discharge Date/Time: 04/10/25 15:02 Print Language: Azeri
[2025-04-10 15:02] VITALS: BP 116/81; PULSE 77; RESP 16; TEMP 36.9; O2SAT 97
== END 2025-04-10 15:02 | disposition left against medical advice (07) ==
PROVIDERS: Emergency Provider Emergency Medicine; PCP Nurse Practitioner Family
DX: T40.2X1A Poisoning by other opioids, accidental (unintentional), initial encounter (principal); F11.90 Opioid use, unspecified, uncomplicated
CPT/HCPCS: 99282; 99284